=== PATIENT | male | born 1940 | race Caucasian/White ===

== ENCOUNTER → 2017-10-29 | Outpatient (CLI) | payer BC ==
[~2017-10-29] MED LIST: ASPCH81X PO; ATOR-24 PO; ATOR-26 PO; AZAT50TA25 PO; LISI1TAB3 PO; METO50TA16 PO; METO50TA8 PO; MULT-506 PO; NIFE60TA57 PO; OMEG10007 PO; SULF500T35 PO; SULF500T36 PO; VITAMIN B12 PO; VITAMIN D3 PO; [UNRECOGNIZED DRUG - CODE]
== END | disposition home or self-care (01) ==
LOC: C.RDSM 08:00
PROVIDERS: ATTEND Physical Medicine & Rehabilitation Sports Medicine
DX: G56.01 Carpal tunnel syndrome, right upper limb (principal)

== ENCOUNTER → 2017-11-04 | Day surgery (SDC) | payer BC ==
[2017-11-01 09:48] VITALS: Ht 180.3 cm; Wt 84.1 kg
[~2017-11-04] VITALS: Ht 180.3 cm; Wt 84.1 kg
[~2017-11-04] MED LIST changes: -ATOR-24 PO; +ATROPINE SULFATE 0.1 MG/ML 5ML SYR IV PRN; +BUPIVACAINE/EPINEPHRINE 0.5% MPF 1:200,000 30 ML VIAL ONE; +CEFAZOLIN 2000MG IV PUSH 15 ML IV SCH; +EpHEDrine SULFATE 50MG/5ML SYR ONE; +EpHEDrine SULFATE INJ 50 MG/ML AMP IV PRN; +FENTANYL CITRATE INJ 50 MCG/1 ML 2 ML VIAL IV PRN; +FENTANYL CITRATE INJ 50 MCG/1 ML 2 ML VIAL ONE; +HYDROmorphone INJ 1 MG/ML SYR IV PRN; +LACTATED RINGER'S 1000ML 1,000 ML IV SCH; +LIDOCAINE HCL 2% 2 ML VIAL (20MG/ML) ONE; +LIDOCAINE/EPINEPHRINE 1% 20 ML VIAL ONE; -METO50TA8 PO; +MoRPHine SULFATE 2 MG/ML CARP IV PRN; +ONDANSETRON INJ 2 MG/ML 2 ML VIAL IV PRN; +OXYCODONE/ACETAMINOPHEN 5-325 TAB PO PRN; +PROPOFOL IV EMULSION 10 MG/ML 20 ML VIAL IV ONE; +SODIUM CHLORIDE 0.9% 1000ML 1,000 ML IV SCH; -SULF500T35 PO; -[UNRECOGNIZED DRUG - CODE]
--- NOTE | 2017-11-04 06:52 | History & Physical Bridge Note ---
H&P Re-Evaluation Bridge Note: I have examined the patient, reviewed the History & Physical and in the interval since the performance of the History & Physical I have noted the following changes of clinical significance: No changes noted
--- NOTE | 2017-11-04 07:53 | [facility] Post Operative Brief Note ---
Immediate Operative Summary Operative Date Nov 04, 2017. Pre-Operative Diagnosis Right Carpal Tunnel Syndrome Post-Operative Diagnosis Same Procedure(s) Performed Right Carpal Tunnel Release Surgeon Dr. Alberts Final Canoe Inspector Surgeon(s) Bronwyn Guevara MS 3 Estimated Blood Loss 0 mL Findings Consistent with Post-Op Diagnosis Specimens None Drains None Anesthesia Type MAC Regional Complication(s) none Disposition Accompanied Pt To Recovery: no Disposition: Recovery Room / PACU
[2017-11-04 07:57] VITALS: TEMP 36.2
--- NOTE | 2017-11-04 08:03 | [facility] Operative Report ---
Operative Report Operative Date Nov 04, 2017. Pre-Operative Diagnosis Right Carpal Tunnel Syndrome Post-Operative Diagnosis Same Procedure(s) Performed Right Carpal Tunnel Release Surgeon Dr. Alberts Import/Export Freight Forwarder Surgeon(s) Bronwyn Guevara MS 3 Estimated Blood Loss 0 mL Findings Atrophic appearing median nerve with significantly tight distal forearm fascia Specimens None Anesthesia Local with IV sedation Complication(s) None Disposition Recovery Room / PACU Indications The patient is a 77-year-old male with right wrist pain consistent with carpal tunnel syndrome confirmed by electrodiagnostic test. After discussing his treatment options he wished to proceed with surgical intervention. Description of Procedure Informed consent was obtained. The patient was identified as Oswaldo Bernal. The patient identified the operative site as the right wrist which I marked with my initials. A preoperative surgical timeout was performed. A preop dose of IV antibiotics was given. The patient was positioned supine on the hospital stretcher with the right arm suspended on a hand table. 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 The limb was prepped and draped in the usual sterile fashion. The examination under anesthesia was unremarkable. DVT prophylaxis was not indicated. The limb was exsanguinated with the Esmarch as described above.. A midline longitudinal incision was made beginning at Briscoe's cardinal line. The incision stopped just short of the distal transverse wrist crease. Blunt dissection was performed down through the subcutaneous tissues and through the superficial palmar fascia. The transverse carpal ligament was identified and divided in line with the incision up into distal forearm fascia under direct visualization. The distal forearm fascia was notably thickened and I could not insert my finger up into the distal forearm area through the wound. I therefore extended the incision across the risk towards the ulnar side in a zigzag fashion. I then carefully divided longitudinally the palmaris longus tendon. The underlying fascia was identified retractor was placed over top of the nerve to protect it and then this was released achieving a complete release with no areas of compression upon the median nerve. A wide decompression was obtained. The contents of the carpal canal tendons and tenosynovium appeared to be normal. The median nerve appeared to be flattened and atrophic through the carpal canal area the wound was copiously irrigated with sterile saline and then closed with 4-0 nylon horizontal mattress stitches. A soft sterile dressing was applied. The Esmarch was let down after approximately 15 minutes of inflation. The patient was awakened from anesthesia without difficulty and taken to the recovery room in stable condition. There were no specimens or complications. Counts were correct at the end of the case. Blood loss was minimal. At the conclusion of the operation spoke to the patient's family and informed them of my findings. Detailed postoperative instructions were given. The patient will be rehabilitated according to the carpal tunnel protocol. I attest to the content of the Intraoperative Record and any orders documented therein. Any exceptions are noted below.
--- NOTE | 2017-11-04 08:11 | Discharge Instructions-SurgCtr ---
Discharge Instructions Date of Service Nov 04, 2017. Visit Reason for Visit: Right Carpal Tunnel Syndrome Discharge Discharge Diagnosis / Problem: carpal tunnel Discharge Goals Goal(s): Decrease discomfort, Improve function Activity Recommendations Activity Limitations: resume your previous activity Lifting Limitations: no more than 5 pounds Anesthesia . Post Anesthesia Instructions: If you have had General Anesthesia or IV Sedation: * Do not drive today. * Resume driving when surgeon permits. * Do not make important decisions or sign legal documents today. * Call surgeon for: 1. Temperature elevations greater than 101 degrees F. 2. Uncontrollable pain. 3. Excessive bleeding. 4. Persistent nausea and vomiting. 5. Medication intolerance (nausea, vomiting or rash). * For nausea and vomiting use only clear liquids such as: tea, soda, bouillon until nausea subsides, then gradually increase diet as tolerated. * If you have any concerns or questions, call your surgeon's office. If physician is unavailable and it is an emergency, call 911 or go to the nearest emergency room. . Instructions / Follow-Up Instructions / Follow-Up The following are instructions to follow after minor hand surgery. ACTIVITY RECOMMENDATIONS: * Minimize activity until your first visit after surgery. * No excessive walking, jogging, sports or laboring. * Return to activity is individualized. Most patients are able to return to everyday activities within 2 weeks. * Return to sports or intensive labor usually occurs at 1-2 months. * DRIVING: Driving may be resumed when you feel you have adequate pain control and use of the hand. * BATHING: You may shower or sponge-bathe immediately after surgery. The dressing will need to be covered with a plastic bag or plastic wrap until the dressing is changed on the fourth or fifth day after surgery. Once the dressing has been changed on the fourth or fifth day after surgery, you may shower and get the incision wet. * Wash with regular soap and water. * Do not bathe (submerge the incision), soak, swim or use a hot tub until the incision is completely healed over with normal skin and the doctor has given the OK to proceed. * There is no need to apply any ointments, powders or salves to your incision. * Do not apply alcohol or hydrogen peroxide directly to the incision. Diluted peroxide (50:50 mixture with sterile saline) may be used to clean dried blood from around the incision area. WORK/SCHOOL: * You may return to sedentary work or school when you are feeling comfortable. This is usually 3-7 days after surgery. * Expect increased discomfort with increased activity. Continue to elevate and ice the hand as much as possible. DIET: * Resume previous diet. MEDICATIONS: * You will have a prescription for pain medication and an anti-inflammatory medication after surgery. Use the pain pills for severe pain and the anti-inflammatory for less severe pain. * Once the pain pills have run out, try to use the anti-inflammatory. If this is not effective then contact the office for assistance. * The pain medication may cause nausea, constipation and sleepiness. You should see how they affect you before driving or similar activity. * The anti-inflammatory may cause stomach upset and bleeding. If this occurs, let your doctor know immediately . * Some patients may need blood clot prevention. This can be done with either a pill or a simple shot. Your doctor will advise you on when to begin these medications and how to take them. * Do not take aspirin or other anti-inflammatory products (i.e. Advil or Aleve ) if taking blood thinner medication. * Take a stool softener like Colace or a stimulant like Senokot to prevent constipation. SPECIAL CARE INSTRUCTIONS: ICE: * Do not apply ice directly to the skin. * Use a thin dressing or stockinet between the skin and ice bag. The dressing in place after surgery will suffice. * Apply ice for 20-30 minutes and repeat every 2-4 hours. This is especially important for the first 3-7 days after surgery. * Once the pain improves, use ice as needed. ELEVATION: * Keep your hand elevated at or above the level of your heart as much as possible. * Expect some increased discomfort and swelling if you allow your hand to hang down for any length of time. DRESSING: * Your dressing will be changed 4-5 days after surgery by the physical therapist or physician's home health assistant. Leave your dressing intact until this time. * You may then change your dressing daily with clean dry gauze or Band-aids and a soft wrap or stockinet. * Always wash your hands prior to touching the incision area. * Once the stitches are removed, you may leave the wound open to air or cover with a thin bandage. * There is no need to apply any ointments, powders or salves to your incision. * Expect some bloody drainage for the first few days after surgery. * Leave the tape strips in place (if present) for 5-7 days. * The initial dressing after surgery may become soaked with blood or fluid which is normal. You may reinforce your dressing with clean, dry gauze as needed. BRACE: * Bracing is generally not needed after routine hand surgery. THERAPY: * Physical therapy may be prescribed after your surgery. * For carpal tunnel and trigger digit surgery you may begin moving your fingers and wrist immediately after surgery as tolerated. * Be careful to not overuse. * Once the sutures are removed, further range of motion exercises can be performed. * Hand incisions may be very sensitive for a few months after surgery so avoid excessive pressure on the incision. If necessary, use a padded weightlifters' glove. * You may massage the incision with skin cream to make it less sensitive and reduce scarring. * Hand strength usually returns with normal use. * If needed, squeezing a soft sponge or Play-dough may help. * Your doctor will recommend physical therapy if necessary. PROBLEMS/QUESTIONS: * If you have any problems such as severe pain, numbness, tingling or high fevers or if you have any questions, please contact the office at [phone]. * It is not uncommon to have some numbness and tingling after the surgery especially if you have had a nerve block done. This should gradually improve over the first 1- 2 days. If this persists longer or worsens then contact the office. FOLLOW UP VISIT: * If not already scheduled, please call the office at to schedule follow-up appointments for approximately 10 days, 6 weeks and 3 months after surgery. Diet Recommendations Home Diet: no limitations Procedures Procedures Performed: Right Carpal Tunnel Release Pending Studies Studies pending at discharge: no Medical Emergencies . Who to Call and When: Medical Emergencies: If at any time you feel your situation is an emergency, please call 911 immediately. . Non-Emergent Contact Non-Emergency issues call your: Surgeon Call Non-Emergent contact if: you have a fever, your pain is not controlled, your pain is unusual for you, wound has increased drainage, wound has increased redness . . "Provider Documentation" section prepared by Baron Alberts. .
[2017-11-04 08:34] VITALS: BP 147/71; PULSE 50; O2SAT 95
--- NOTE | 2017-11-04 08:38 | Anesthesia Progress Nt - [facility] ---
Anesthesia Post Op Note Date & Time Nov 04, 2017 at 08:38 Vital Signs Pain Intensity: 0 Vital Signs Past 12 Hours Date Time Temp Pulse Resp B/P (MAP) Pulse Ox O2 Delivery O2 Flow Rate FiO2 11/04/17 08:34 50 18 147/71 (96) 95 Room Air 11/04/17 07:57 36.2 53 16 126/70 (88) 95 Room Air 11/04/17 06:26 36.3 58 18 137/76 (96) 95 Room Air Notes Mental Status: alert / awake / arousable, participated in evaluation Pt Amnestic to Procedure: Yes Nausea / Vomiting: adequately controlled Pain: adequately controlled Airway Patency, RR, SpO2: stable & adequate BP & HR: stable & adequate Hydration State: stable & adequate Anesthetic Complications: no major complications apparent
== END | disposition home or self-care (01) ==
LOC: X.SURG 06:10
PROVIDERS: ATTEND Physical Medicine & Rehabilitation Sports Medicine
DX: G56.01 Carpal tunnel syndrome, right upper limb (principal); I25.10 Atherosclerotic heart disease of native coronary artery without angina pectoris; I10 Essential (primary) hypertension; E78.5 Hyperlipidemia, unspecified; M19.90 Unspecified osteoarthritis, unspecified site; M48.061 Spinal stenosis, lumbar region without neurogenic claudication; K50.90 Crohn's disease, unspecified, without complications; I70.90 Unspecified atherosclerosis; Z95.1 Presence of aortocoronary bypass graft; Z79.82 Long term (current) use of aspirin; Z87.891 Personal history of nicotine dependence

== ENCOUNTER 2021-09-30 11:24 | Observation (INO) ==
[2021-09-30] MEDS ORDERED: SODIUM CHLORIDE 0.9% 500 ML IV ONE (11:45)
--- NOTE | 2021-09-30 11:48 | Emergency Department Note ---
Impression & Plan Appendicitis, Hyponatremia, Abdominal pain ED Provider Note NAME: OSWALDO BLAKELY AGE: 81 SEX: M : 1940 ARRIVES VIA: Walk-In INFORMANT: Patient ED PROVIDER(S): Sixto Salazar DO CHIEF COMPLAINT: abdominal pain HPI: Patient is an 81-year-old male that presents to the ER for right lower quadrant abdominal pain. This woke him up from sleep at 8 AM. He describes as sharp stabbing. No vomiting. He did have 3 loose bowel movements. Pain has improved since this morning. He saw his PCP and referred him in for further evaluation. Denies any headache or change in vision. No chest pain or shortness of breath. No dysuria, urgency, or frequency. Previous abdominal surgeries include 3 previous hernia repairs. He still has gallbladder and appendix. Normal loose stools today. Does have a history of Crohn's. He notes this is well controlled. ROS: See above HPI for pertinent positives & negatives. A total of 10 systems r eviewed and were otherwise negative. PAST MEDICAL HISTORY:See Below PAST SURGICAL HISTORY:See Below FAMILY HISTORY:See Below SOCIAL HISTORY:See Below HOME MEDICATIONS:See Below ALLERGIES:See Below VITALS:See Below PHYSICAL EXAMINATION: GENERAL: Sitting up in bed, alert, well appearing, well nourished, no distress, non-toxic EYE EXAM: normal conjunctiva. PERRL and EOM's grossly intact. OROPHARYNX: no exudate, no erythema, lips, buccal mucosa, and tongue normal and mucous membranes are moist NECK: supple, no nuchal rigidity, no adenopathy, non-tender LUNGS: Clear to auscultation. Normal chest wall mechanics HEART: no murmurs, S1 normal and S2 normal ABDOMEN: abdomen soft, TTP in RLQ, normo-active bowel sounds, no masses, no rebound or guarding. UPPER EXTREMITIES: upper extremities are grossly normal. LOWER EXTREMITIES: No pitting edema. NEURO EXAM: Normal sensorium, cranial nerves II-XII grossly intact, normal speech, no gross weakness of arms, no gross weakness of legs. MEDICAL DECISION MAKING: Patient is an 81-year-old male who presents ER for right lower quadrant abdominal pain. IV was established blood was obtained. Labs show mild leukocytosis 11.5 thousand. No significant anemia. BMP with mild hyponatremia at 130. LFTs bilirubin was unremarkable. Lipase was normal. UA was clean. COVID was negative. CT abdomen pelvis shows acute appendicitis without perforation. Patient was given IV cefoxitin and fluids. Declined pain medications. Discussed with Kindra Bender who evaluated the patient from general surgery and admitted under him to her service. Triage Nursing notes reviewed. Limited review of prior medical records performed Vital Signs: reviewed and remarkable for HTN Differential diagnosis: Differential diagnoses includes but is not limited to gastritis, peptic ulcer disease, GERD, gallbladder disease, pancreatitis, small bowel obstruction, acute coronary syndrome, pericarditis, ischemic bowel, irritable bowel disease, irritable bowel syndrome, appendicitis, diverticulitis, malignancy, hernia, urinary tract infection, torsion, perforation, trauma, infectious. ER treatment provided: See below Diagnostics interpreted by me: ECG: none Cardiac Monitoring: An order was placed for continuous cardiac monitoring. The monitor shows a rate of 70 with sinus rhythm. Laboratory studies: As stated above and show below. 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 GAMBINO History of tonsillectomy Hx of hernia repair X3 Family History Father Colon cancer Social History Smoking Status: Former smoker Tobacco Type: Cigarettes Second Hand Exposure: No; Hx Alcohol Use: Yes Alcohol type: beer and wine Hx Substance Use: No Preferred Language: Malay Communication Ability: Effective Baker Test Required: No Beliefs That Will Affect Care: None Current Living Situation: Spouse Feels Safe at Home: Yes Assistive Devices: None Allergies Allergies Allergy/AdvReac Type Severity Reaction Status Date / Time No Known Allergies Allergy Unknown Verified 09/30/21 13:59 Home Meds Home Medications Medication Instructions Recorded Confirmed aspirin 81 mg tablet,delayed 81 mg PO QAM 06/27/19 09/30/21 release clonidine HCl 0.1 mg tablet 0.1 mg PO 1700 tab 06/27/19 09/30/21 lisinopril 40 mg tablet 40 mg PO QAM 06/27/19 09/30/21 multivitamin 1 tab PO QAM 06/27/19 09/30/21 spironolactone 25 mg tablet 25 mg PO 1700 06/27/19 09/30/21 (Aldactone) cilostazol 100 mg tablet 100 mg PO BID 09/08/19 09/30/21 metoprolol tartrate 50 mg tablet 50 mg PO BID tab 09/08/19 09/30/21 (Lopressor) cholecalciferol (vitamin D3) 50 2,000 unit PO QAM 10/20/19 09/30/21 mcg (2,000 unit) tablet (Vitamin D3) timolol maleate 0.5 % eye drops 1 drp OPL QAM 10/20/19 09/30/21 nifedipine 60 mg tablet,extended 60 mg PO DAILY 03/13/20 09/30/21 release dorzolamide 2 % eye drops 1 drp OPL BID ml 11/18/20 09/30/21 cholestyramine-aspartame 4 gram 1 ea PO DAILY PRN 09/30/21 09/30/21 oral powder (Cholestyramine Light) latanoprost 0.005 % eye drops 1 drp OPL HS 09/30/21 09/30/21 rosuvastatin 10 mg tablet 10 mg PO DAILY 09/30/21 09/30/21 Previous Rx's Medication Instructions Recorded sulfasalazine 500 mg tablet 1.5 g PO BID #540 tab 06/16/21 folic acid 1 mg tablet 1 mg PO DAILY #90 tab 08/11/21 Results & Data (ED) Vital Signs Vital Signs - 24 hr 09/30/21 11:28 09/30/21 12:20 09/30/21 12:53 Temperature 36.4 C L Temperature Source Temporal Artery Scan Pulse Rate 72 62 66 Pulse Rate [Finger] Pulse Rate from SpO2 Sensor 61 67 Respiratory Rate 16 17 18 Respiratory Effort / Characteristics Respiratory Depth Respiratory Pattern Blood Pressure 157/66 H Blood Pressure [Right Arm] Blood Pressure Mean 96 Blood Pressure Mean [Right Arm] Blood Pressure Position [Right Arm] Pulse Oximetry 96 95 96 Oxygen Delivery Method Room Air Sepsis Recent Fever Within 48 Hours No Sepsis New/Unexplained Change in Mental Status No Sepsis Action Taken by Nursing No Action Required 09/30/21 13:01 09/30/21 13:04 09/30/21 13:30 Temperature Temperature Source Pulse Rate 72 66 Pulse Rate [Finger] Pulse Rate from SpO2 Sensor Respiratory Rate 19 23 Respiratory Effort / Characteristics Respiratory Depth Respiratory Pattern Blood Pressure 174/86 H Blood Pressure [Right Arm] Blood Pressure Mean 149 115 Blood Pressure Mean [Right Arm] Blood Pressure Position [Right Arm] Pulse Oximetry Oxygen Delivery Method Sepsis Recent Fever Within 48 Hours Sepsis New/Unexplained Change in Mental Status Sepsis Action Taken by Nursing 09/30/21 14:20 09/30/21 14:40 Temperature 36.5 C Temperature Source Oral Pulse Rate Pulse Rate [Finger] 68 Pulse Rate from SpO2 Sensor Respiratory Rate 18 Respiratory Effort / Characteristics Non-Labored Spontaneous Respiratory Depth Normal Respiratory Pattern Regular Blood Pressure Blood Pressure [Right Arm] 166/75 H Blood Pressure Mean Blood Pressure Mean [Right Arm] 105 Blood Pressure Position [Right Arm] Sitting Pulse Oximetry 98 Oxygen Delivery Method Room Air Room Air Sepsis Recent Fever Within 48 Hours Sepsis New/Unexplained Change in Mental Status Sepsis Action Taken by Nursing Laboratory Data Result diagrams: 09/30/21 11:52 09/30/21 11:52 Lab Results 09/30/21 09/30/21 09/30/21 Range/Units 11:52 11:52 11:52 WBC 11.25 H (4.8-10.8) K/uL RBC 3.82 L (4.7-6.1) M/uL Hgb 12.7 L (14.0-18.0) g/dL POC Hgb (14.0-18.0) g/dl Hct 38.9 L (42-52) % POC Hct (42-52) % MCV 101.8 H (80-100) fL MCH 33.2 (25-34) pg MCHC 32.6 (32-36) g/dL RDW Std Deviation 50.1 H (36.4-46.3) fL RDW Coeff of Sina 13.4 (11.5-14.5) % Plt Count 229 (130-400) K/uL MPV 11.2 H (7.4-10.4) fL Immature Gran % (Auto) 0.3 % Neut % (Auto) 71.0 % Lymph % (Auto) 14.0 % Mer[place] % (Auto) 13.2 % Eos % (Auto) 1.2 % Baso % (Auto) 0.3 % Neut # (Auto) 7.99 H (1.4-6.5) K/uL Lymph # (Auto) 1.58 (1.2-3.4) K/uL [place] # (Auto) 1.49 H (0.11-0.59) K/uL Eos # (Auto) 0.13 (0-0.5) K/uL Baso # (Auto) 0.03 (0-0.2) K/uL Immature Gran # (Auto) 0.03 H (0.00-0.02) K/uL POC Sodium (135-144) mmol/L Sodium 130 L (136-145) mmol/L POC Potassium (3.3-5.0) mmol/L Potassium 4.5 (3.5-5.1) mmol/L POC Chloride (101-112) mmol/L Chloride 99 (98-107) mmol/L Carbon Dioxide 23 (21-32) mmol/L POC Total CO2 (24-31) mmol/L Anion Gap 8 (3-11) POC Anion Gap (16-25) mmol/L POC BUN (7-18) mg/dl BUN 15 (6-23) mg/dl Creatinine 0.86 (0.6-1.4) mg/dl POC Creatinine (0.6-1.3) mg/dl Est Cr Clr Drug Dosing 70.7 ml/min Est GFR ( Amer) 94.3 ml/min Est GFR (Non-Af Amer) 81.3 ml/min BUN/Creatinine Ratio 17.4 (10-20) Glucose 104 H (70-99(Fasting)) mg/dl POC Glucose (other) (70-99) mg/dl Calcium 9.8 (8.5-10.1) mg/dl POC Ioniz Calcium Taye (1.12-1.32) mmol/l Total Bilirubin 0.6 (0.2-1.0) mg/dl AST 22 (13-39) U/L ALT 15 (7-52) U/L Alkaline Phosphatase 70 (34-104) U/L Total Protein 7.4 (6.0-8.3) gm/dl Albumin 4.6 (3.4-5.0) gm/dl Globulin 2.8 (2.5-4.0) gm/dl Albumin/Globulin Ratio 1.6 (0.9-2) Lipase 42 (11-82) U/L Urine Color Yellow Urine Appearance Clear (Clear) Urine pH 5.0 (4.5-7.5) Ur Specific Bernice 1.011 (1.000-1.030) Urine Protein Negative (Negative) Urine Glucose (UA) Negative (Negative) Urine Ketones Negative (Negative) Urine Blood Negative (Negative) Urine Nitrite Negative (Negative) Urine Bilirubin Negative (Negative) Urine Urobilinogen Negative (Negative) Ur Leukocyte Esterase Negative (Negative) SARS-CoV-2, RNA, NAAT (NEGATIVE) 09/30/21 09/30/21 Range/Units 11:58 Unknown WBC (4.8-10.8) K/uL RBC (4.7-6.1) M/uL Hgb (14.0-18.0) g/dL POC Hgb 14.3 (14.0-18.0) g/dl Hct (42-52) % POC Hct 42 (42-52) % MCV (80-100) fL MCH (25-34) pg MCHC (32-36) g/dL RDW Std Deviation (36.4-46.3) fL RDW Coeff of Sina (11.5-14.5) % Plt Count (130-400) K/uL MPV (7.4-10.4) fL Immature Gran % (Auto) % Neut % (Auto) % Lymph % (Auto) % [place] % (Auto) % Eos % (Auto) % Baso % (Auto) % Neut # (Auto) (1.4-6.5) K/uL Lymph # (Auto) (1.2-3.4) K/uL [place] # (Auto) (0.11-0.59) K/uL Eos # (Auto) (0-0.5) K/uL Baso # (Auto) (0-0.2) K/uL Immature Gran # (Auto) (0.00-0.02) K/uL POC Sodium 132 L (135-144) mmol/L Sodium (136-145) mmol/L POC Potassium 4.5 (3.3-5.0) mmol/L Potassium (3.5-5.1) mmol/L POC Chloride 99 L (101-112) mmol/L Chloride (98-107) mmol/L Carbon Dioxide (21-32) mmol/L POC Total CO2 22 L (24-31) mmol/L Anion Gap (3-11) POC Anion Gap 16.0 (16-25) mmol/L POC BUN 15 (7-18) mg/dl BUN (6-23) mg/dl Creatinine (0.6-1.4) mg/dl POC Creatinine 0.9 (0.6-1.3) mg/dl Est Cr Clr Drug Dosing ml/min Est GFR ( Amer) ml/min Est GFR (Non-Af Amer) ml/min BUN/Creatinine Ratio (10-20) Glucose (70-99(Fasting)) mg/dl POC Glucose (other) 106 H (70-99) mg/dl Calcium (8.5-10.1) mg/dl POC Ioniz Calcium Taye 1.28 (1.12-1.32) mmol/l Total Bilirubin (0.2-1.0) mg/dl AST (13-39) U/L ALT (7-52) U/L Alkaline Phosphatase (34-104) U/L Total Protein (6.0-8.3) gm/dl Albumin (3.4-5.0) gm/dl Globulin (2.5-4.0) gm/dl Albumin/Globulin Ratio (0.9-2) Lipase (11-82) U/L Urine Color Urine Appearance (Clear) Urine pH (4.5-7.5) Ur Specific Bernice (1.000-1.030) Urine Protein (Negative) Urine Glucose (UA) (Negative) Urine Ketones (Negative) Urine Blood (Negative) Urine Nitrite (Negative) Urine Bilirubin (Negative) Urine Urobilinogen (Negative) Ur Leukocyte Esterase (Negative) SARS-CoV-2, RNA, NAAT NEGATIVE (NEGATIVE) Administered Medications Discontinued Medications Bupivacaine HCl (Bupivacaine 0.5 % 5 Mg/1 Ml Mpf 30ml Vial) Confirm Administered Dose 30 ml .ROUTE .[employer]-MED ONE Stop: 09/30/21 14:07 Last Admin: 09/30/21 15:44 Dose: 30 ml Documented by: [id number] Sodium Chloride (Nss) 500 mls @ 999 mls/hr IV .Q31M ONE Stop: 09/30/21 12:15 Last Admin: 09/30/21 12:11 Dose: 999 mls/hr Documented by: [id number] Sodium Chloride (Nss 1000ml) 500 mls @ 999 mls/hr IV .Q31M ONE Stop: 09/30/21 13:49 Last Admin: 09/30/21 13:34 Dose: 999 mls/hr Documented by: [id number] Cefoxitin Sodium (Mefoxin) 2,000 mg in 60 mls @ 100 mls/hr IV NOW STA Stop: 09/30/21 13:54 Last Admin: 09/30/21 13:34 Dose: 100 mls/hr Documented by: [id number] Ioversol (Optiray 320 100ml) 94 ml IV ONCE ONE Stop: 09/30/21 12:35 Last Admin: 09/30/21 12:34 Dose: 94 ml Documented by: [id number] Imaging Data Radiologist's Impression: Abdomen/Pelvis CT 09/30/21 11:45 CT abd pelvis IV con only CLINICAL HISTORY: rlq abd pain TECHNIQUE: Helical axial images of the abdomen and pelvis were obtained and displayed. Automated dose lowering techniques and/or adjustment according to patient size were utilized for this exam. This exam was performed with intravenous contrast. COMPARISON: None available at the time of this dictation. FINDINGS: Lower chest: No acute abnormality Liver: Unremarkable. No focal lesions are seen. Gallbladder and biliary tree: No calcified gallstones. Normal caliber wall. No intra- or extrahepatic biliary ductal dilation. Pancreas: Unremarkable, no focal lesions. Spleen: Splenule is incidentally noted. Adrenals: Unremarkable. Kidneys and ureters: Exophytic cyst is seen in the right kidney. Bladder: Bladder wall thickening is seen. Reproductive organs: Prostatomegaly is seen. Bowel: There is dilation of the appendix to approximately 9 mm with associated fat stranding. No abscess or perforation is seen. Lymph nodes Retroperitoneal: Unremarkable. Mesenteric: Unremarkable. Pelvic: Unremarkable. Peritoneum: Normal. Vessels: Atherosclerotic calcifications are seen. Abdominal wall: A fat-containing umbilical hernia is seen. A fat-containing left inguinal hernia is seen. Bones: Degenerative changes in the visualized spine. IMPRESSION: 1. Findings are compatible with acute appendicitis. No evidence of perforation or abscess. 2. There is thickening of the bladder wall likely secondary to chronic obstruction this patient with prostatomegaly. 3. Additional findings as above. ACT 112: Negative or not required by law. Electronically signed by: Conor Persaud M.D. 09/30/2021 1:04 PM Discharge Plan Visit Data Chief Complaint: Abdominal Pain Stated Complaint: DR. FAY CALLED, TO CHECK FOR APPENDICITIS ED Provider: Sixto Salazar Discharge Problem: Appendicitis, Hyponatremia, Abdominal pain Patient Disposition: Admitted As Inpatient Discharge Instructions Interventions: ED Discharge Assessment Last Done: 09/30/21 14:20
[2021-09-30 12:11] LABS: Basophils # (auto) 0.03 K/uL (0-0.2); Basophils % (auto) 0.3 %; Eosinophils # (auto) 0.13 K/uL (0-0.5); Eosinophils % (auto) 1.2 %; Hematocrit (blood only) 38.9 % (42-52); Hemoglobin 12.7 g/dL (14.0-18.0); Immature Granulocytes # (auto) 0.03 K/uL (0.00-0.02); Immature Granulocytes % (auto) 0.3 %; Lymphocytes # (auto) 1.58 K/uL (1.2-3.4); Mean Corpuscular Hemoglobin 33.2 pg (25-34); Mean Corpuscular Hgb Conc 32.6 g/dL (32-36); Mean Corpuscular Volume 101.8 fL (80-100); Mean Platelet Volume 11.2 fL (7.4-10.4); Monocytes # (auto) 1.49 K/uL (0.11-0.59); Monocytes % (auto) 13.2 %; Neutrophils # (auto) 7.99 K/uL (1.4-6.5); Platelet Count 229 K/uL (130-400); RDW Coefficient of Variation 13.4 % (11.5-14.5); RDW Standard Deviation 50.1 fL (36.4-46.3); Red Blood Count 3.82 M/uL (4.7-6.1); White Blood Count 11.25 K/uL (4.8-10.8)
[2021-09-30 12:11] LABS: iSTAT Creatinine 0.9 mg/dl (0.6-1.3); iSTAT Hemoglobin 14.3 g/dl (14.0-18.0); iSTAT Ionized Calcium 1.28 mmol/l (1.12-1.32); iSTAT Potassium 4.5 mmol/L (3.3-5.0)
[2021-09-30 12:21] LABS: Appearance Urine Clear (Clear); Bilirubin Urine Negative (Negative); Blood Urine Negative (Negative); Color Urine Yellow; Glucose Urine UA Negative (Negative); Ketones Urine Negative (Negative); Leukocyte Esterase Urine Negative (Negative); Nitrite Urine Negative (Negative); Protein Urine Negative (Negative); Specific Gravity Urine 1.011 (1.000-1.030); Urobilinogen Urine Negative (Negative)
[2021-09-30 12:34] LABS: Albumin Globulin Ratio 1.6 (0.9-2); Albumin Level 4.6 gm/dl (3.4-5.0); BUN Creatinine Ratio 17.4 (10-20); Bilirubin,Total 0.6 mg/dl (0.2-1.0); Calcium 9.8 mg/dl (8.5-10.1); Creatinine Clr Calc Pharmacy 70.7 ml/min; Est GFR (African American) 94.3 ml/min; Est GFR (Non-African American) 81.3 ml/min; Globulin 2.8 gm/dl (2.5-4.0); Potassium 4.5 mmol/L (3.5-5.1); Total Protein 7.4 gm/dl (6.0-8.3)
[2021-09-30] MEDS ORDERED: OPTIRAY 320 100ml IV ONE (12:34)
--- NOTE | 2021-09-30 13:05 | CT Scan Report ---
CT abd pelvis IV con only CLINICAL HISTORY: rlq abd pain TECHNIQUE: Helical axial images of the abdomen and pelvis were obtained and displayed. Automated dose lowering techniques and/or adjustment according to patient size were utilized for this exam. This e xam was performed with intravenous contrast. COMPARISON: None available at the time of this dictation. FINDINGS: Lower chest: No acute abnormality Liver: Unremarkable. No focal lesions are seen. Gallbladder and biliary tree: No calcified gallstones. Normal caliber wall. No intra- or extrahepatic biliary ductal dilation. Pancreas: Unremarkable, no focal lesions. Spleen: Splenule is incidentally noted. Adrenals: Unremarkable. Kidneys and ureters: Exophytic cyst is seen in the right kidney. Bladder: Bladder wall thickening is seen. Reproductive organs: Prostatomegaly is seen. Bowel: There is dilation of the appendix to approximately 9 mm with associated fat stranding. No absc ess or perforation is seen. Lymph nodes Retroperitoneal: Unremarkable. Mesenteric: Unremarkable. Pelvic: Unremarkable. Peritoneum: Normal. Vessels: Atherosclerotic calcifications are seen. Abdominal wall: A fat-containing umbilical hernia is seen. A fat-containing left inguinal hernia is s een. Bones: Degenerative changes in the visualized spine. IMPRESSION: 1. Findings are compatible with acute appendicitis. No evidence of perforation or abscess. 2. There is thickening of the bladder wall likely secondary to chronic obstruction this patient with prostatomegaly. 3. Additional findings as above. ACT 112: Negative or not required by law. Electronically signed by: Conor Persaud M.D. 09/30/2021 1:04 PM
[2021-09-30] MEDS ORDERED: cefOXitin 2,000 MG/60 ML BAG IV STA (13:19)
[2021-09-30] MEDS ORDERED: SODIUM CHLORIDE 0.9% 1000ML 500 ML IV ONE (13:19)
--- NOTE | 2021-09-30 13:36 | History & Physical Report ---
Date of Service September 30, 2021 Assessment & Plan (1) Appendicitis: Plan: Will plan for laparoscopic appendectomy this afternoon. COVID test is pending. He had a sip of water with meds this AM around 7:00. History of Present Illness Primary Care Provider: Vijay Cash MD 81 y/o male woke up at 5 AM with pain in RLQ. Had loose BMs. Pain persisted and came to the ED. Had colonoscopy about 2 years ago and has these routinely for polyps. Has 25-30 year h/o Crohn's but well managed with sulfasalazine. Allergies Allergy/AdvReac Type Severity Reaction Status Date / Time No Known Allergies Allergy Unknown Verified 09/30/21 13:59 Home Medications Medication Instructions Recorded Confirmed Type aspirin 81 mg tablet,delayed 81 mg PO QAM 06/27/19 09/30/21 History release clonidine HCl 0.1 mg tablet 0.1 mg PO 1700 tab 06/27/19 09/30/21 History lisinopril 40 mg tablet 40 mg PO QAM 06/27/19 09/30/21 History multivitamin 1 tab PO QAM 06/27/19 09/30/21 History spironolactone 25 mg tablet 25 mg PO 1700 06/27/19 09/30/21 History (Aldactone) cilostazol 100 mg tablet 100 mg PO BID 09/08/19 09/30/21 History metoprolol tartrate 50 mg tablet 50 mg PO BID tab 09/08/19 09/30/21 History (Lopressor) cholecalciferol (vitamin D3) 50 2,000 unit PO QAM 10/20/19 09/30/21 History mcg (2,000 unit) tablet (Vitamin D3) timolol maleate 0.5 % eye drops 1 drp OPL QAM 10/20/19 09/30/21 History nifedipine 60 mg tablet,extended 60 mg PO DAILY 03/13/20 09/30/21 History release dorzolamide 2 % eye drops 1 drp OPL BID ml 11/18/20 09/30/21 History sulfasalazine 500 mg tablet 1.5 g PO BID #540 tab 06/16/21 09/30/21 Rx folic acid 1 mg tablet 1 mg PO DAILY #90 tab 08/11/21 09/30/21 Rx cholestyramine-aspartame 4 gram 1 ea PO DAILY PRN 09/30/21 09/30/21 History oral powder (Cholestyramine Light) latanoprost 0.005 % eye drops 1 drp OPL HS 09/30/21 09/30/21 History rosuvastatin 10 mg tablet 10 mg PO DAILY 09/30/21 09/30/21 History Past Med/Surg History Medical History (Updated 09/30/21 @ 13:52 by Oswaldo Lyons Jr, PA-C) Atrial fibrillation DX: MANY YRS AGO >METOPROLOL > NO CARDIOVERSIONS Crohns disease Glaucoma Hyperlipidemia Hypertension Kidney stones PASSED ON OWN Osteoarthritis Spinal stenosis Surgical History History of back surgery L3-L4 History of cardiac cath 2005 > NO STENTS > [facility] TO [facility] History of colonoscopy 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 GAMBINO History of tonsillectomy Hx of hernia repair X3 Family History Father Colon cancer Social History Smoking Status: Former smoker Tobacco Type: Cigarettes Second Hand Exposure: No; Hx Alcohol Use: Yes Alcohol type: beer and wine Hx Substance Use: No Preferred Language: Guamanian Communication Ability: Effective Master Cosmetologist Required: No Beliefs That Will Affect Care: None Current Living Situation: Spouse Feels Safe at Home: Yes Assistive Devices: None Review of Systems Constitutional: no fever, no chills and no anorexia Respiratory: no cough and no dyspnea Cardiovascular: no chest pain and no palpitations Gastrointestinal: + diarrhea/loose stools; no nausea and no vomiting Physical Exam Constitutional: WD/WN, vitals as above Respiratory: normal respiratory effort, lungs clear to auscultation Cardiovascular: RRR, no murmur, no edema Gastrointestinal (Abdomen): Inspection/Auscultation: abdomen normal to inspection; abdomen not distended Percussion/Palpation: + abdomen tender (RLQ), + guarding and abdomen soft Skin: no rashes, warm and dry Results & Data Results & Data ([facility]) Vital Signs (Past 12 Hours) Vital Signs Temp Pulse Resp BP Pulse Ox 09/30/21 11:28 36.4 C L 72 16 157/66 H 96 Supervising Physician Co-Signing Physician Notes Patient seen and examined, labs and imaging reviewed, agree with above. [age]-year-old male with history of Crohn's disease well-controlled on current medication regimen and history of CABG with no chest pain with activity presents with right lower quadrant abdominal pain. On exam he is afebrile with stable vitals. Tender to palpation in the right lower quadrant. WBC mildly elevated, CT personally reviewed and shows dilated appendix up to 9 cm of periappendiceal fat stranding. No evidence of terminal ileitis to suggest Crohn's flare. Discussed his options, patient elects for surgery. Plan for laparoscopic appendectomy. The risk the procedure were discussed to include but not limited to bleeding, infection, conversion open, damage surrounding structures, normal appendix, need for future more extensive surgeries, and the risk of anesthesia PG Care Time/CCT Total # of Minutes Spent Total Time Spent with Patient: Total time spent is greater than 50% in coordination of care (as documented) at patient's floor/unit and/or counseling patient: Coding Level of Care Code 04466 Initial Inpt Care Lvl 1 Diagnoses Appendicitis K37
[2021-09-30] MEDS ORDERED: BUPIVACAINE 0.5 % 5 MG/1 ML MPF 30ML VIAL ONE (14:06)
[2021-09-30] MEDS ORDERED: fentaNYL citrate 100 MCG/2 ML VIAL ONE (14:18)
--- NOTE | 2021-09-30 14:50 | Anesthesiology Consultation ---
Date of Service September 30, 2021 Assessment & Plan Chart Review Chart Review: Acceptable Risk for Surgery Consults Requested none History Surgery Operation Date: 09/30/21 07:50 Proposed Procedures p Laparoscopic Appendectomy - Garrick Siegel DO, FACS Height/Weight Height: 5 ft 10.5 in Weight: 84.3 kg Allergies Allergy/AdvReac Type Severity Reaction Status Date / Time No Known Allergies Allergy Unknown Verified 09/30/21 13:59 Medications Home Medications Medication Instructions Recorded Confirmed Last Taken aspirin 81 mg tablet,delayed 81 mg PO QAM 06/27/19 09/30/21 09/30/21 release clonidine HCl 0.1 mg tablet 0.1 mg PO 1700 tab 06/27/19 09/30/21 09/29/21 lisinopril 40 mg tablet 40 mg PO QAM 06/27/19 09/30/21 09/30/21 multivitamin 1 tab PO QAM 06/27/19 09/30/21 09/30/21 spironolactone 25 mg tablet 25 mg PO 1700 06/27/19 09/30/21 09/29/21 (Aldactone) cilostazol 100 mg tablet 100 mg PO BID 09/08/19 09/30/21 09/30/21 metoprolol tartrate 50 mg tablet 50 mg PO BID tab 09/08/19 09/30/21 09/30/21 (Lopressor) cholecalciferol (vitamin D3) 50 2,000 unit PO QAM 10/20/19 09/30/21 09/30/21 mcg (2,000 unit) tablet (Vitamin D3) timolol maleate 0.5 % eye drops 1 drp OPL QAM 10/20/19 09/30/21 09/30/21 nifedipine 60 mg tablet,extended 60 mg PO DAILY 03/13/20 09/30/21 09/30/21 release dorzolamide 2 % eye drops 1 drp OPL BID ml 11/18/20 09/30/21 09/30/21 sulfasalazine 500 mg tablet 1.5 g PO BID #540 tab 06/16/21 09/30/21 09/30/21 folic acid 1 mg tablet 1 mg PO DAILY #90 tab 08/11/21 09/30/21 09/30/21 cholestyramine-aspartame 4 gram 1 ea PO DAILY PRN 09/30/21 09/30/21 09/29/21 oral powder (Cholestyramine Light) latanoprost 0.005 % eye drops 1 drp OPL HS 09/30/21 09/30/21 09/29/21 rosuvastatin 10 mg tablet 10 mg PO DAILY 09/30/21 09/30/21 09/29/21 Past Medical History Medical History (Updated 09/30/21 @ 13:52 by Oswaldo Lyons Jr, PA-C) Atrial fibrillation DX: MANY YRS AGO >METOPROLOL > NO CARDIOVERSIONS Crohns disease Glaucoma Hyperlipidemia Hypertension Kidney stones PASSED ON OWN Osteoarthritis Spinal stenosis Past Family History Family History Father Colon cancer Past Surgical History Surgical History History of back surgery L3-L4 History of cardiac cath 2005 > NO STENTS > PRIOR TO [place] History of colonoscopy 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 GAMBINO History of tonsillectomy Hx of hernia repair X3 Social History Smoking Status: Former smoker Hx Alcohol Use: Yes Alcohol type: beer and wine alcohol intake frequency: 0-2 drinks per day Hx Substance Use: No substance use type: does not use Physical Exam Vital Signs Last Vital Signs Temp 36.4 C L 09/30/21 11:28 Pulse 66 09/30/21 13:30 Resp 23 09/30/21 13:30 BP 174/86 H 09/30/21 13:30 Pulse Ox 96 09/30/21 12:53 Testing Laboratory Results 09/30/21 11:52 09/30/21 11:52 Urine Color Yellow 09/30/21 11:52 Urine Appearance Clear (Clear) 09/30/21 11:52 Urine pH 5.0 (4.5-7.5) 09/30/21 11:52 Ur Specific [place] 1.011 (1.000-1.030) 09/30/21 11:52 Urine Protein Negative (Negative) 09/30/21 11:52 Urine Glucose (UA) Negative (Negative) 09/30/21 11:52 Urine Ketones Negative (Negative) 09/30/21 11:52 Urine Nitrite Negative (Negative) 09/30/21 11:52 Ur Leukocyte Esterase Negative (Negative) 09/30/21 11:52 09/30/21 11:58 POC Glucose (other) 106 H
[2021-09-30] MEDS ORDERED: ePHEDrine sulfate 50 MG/ML AMP IV PRN (14:56)
[2021-09-30] MEDS ORDERED: HYDROmorphone INJ 2 MG/ML SYR/VIAL IV PRN (14:56)
[2021-09-30] MEDS ORDERED: ATROPINE SULFATE 0.1 MG/ML 10ML SYR IV PRN (14:56)
[2021-09-30] MEDS ORDERED: PROMETHAZINE HCL 12.5 MG in SODIUM CHLORIDE 0.9% 50 ML IV PRN (14:56)
[2021-09-30] MEDS ORDERED: ONDANSETRON INJ 2 MG/ML 2 ML VIAL IV PRN ×2 (14:56→17:15)
[2021-09-30] MEDS ORDERED: ROCURONIUM BROMIDE 10 MG/ML 5 ML VIAL IV ONE (15:30)
[2021-09-30] MEDS ORDERED: LIDOCAINE 2% 2 ML VIAL/AMP(20MG/ML) INFIL ONE (15:30)
[2021-09-30] MEDS ORDERED: PROPOFOL IV EMULSION 10 MG/ML 20 ML VIAL IV ONE (15:30)
[2021-09-30] MEDS ORDERED: GLYCOPYRROLATE 0.2 MG/ML VIAL ONE (15:30)
[2021-09-30] MEDS ORDERED: NEOSTIGMINE METHYLSULFATE 1 MG/ML 10ML VIAL ONE (15:30)
[2021-09-30] MEDS ORDERED: DEXAMETHASONE SOD INJ 4 MG/ML VIAL ONE (15:30)
[2021-09-30] MEDS ORDERED: ONDANSETRON INJ 2 MG/ML 2 ML VIAL ONE (15:30)
--- NOTE | 2021-09-30 15:52 | Operative Report ---
PG Post Operative Report Pre & Post Diagnosis Operation Date: 09/30/21 07:50 Pre-Op Diagnosis: Acute Appendicitis Post-Op Diagnosis: Acute Appendicitis I identified the patient and participated in the time-out.: Yes Procedure Operation Date: 09/30/21 07:50 Actual Procedures p Laparoscopic Appendectomy(Not Applicable) - Garrick Siegel DO, CLEOPATRA Surgeon Garrick Siegel DO, FACS Architectural Modeler Oswaldo Lyons Estimated Blood Loss 5 Findings Consistent with Post-Op Diagnosis Acute, nonperforated suppurative appendicitis Specimens Appendix Anesthesia Type General Complications none Disposition Accompanied Patient To Recovery: No Disposition: Recovery Room Indications 81-year-old male presented to the emergency department with right lower quadrant pain, physical exam and CT scan consistent with acute appendicitis. Plan for laparoscopic appendectomy. The risks of the procedure were discussed, all questions were answered, and the patient agreed to proceed with surgery as plann ed. Description of Procedure The patient was properly identified, consented, and taken to the operating room where he was placed in the supine position. General endotracheal anesthesia was induced. SCDs and a safety belt were placed. Preoperative antibiotics were administered. A Dominguez catheter was not placed as the patient voided prior to surgery The patient's abdomen was prepped and draped in the standard sterile fashion. Surgical timeout was performed and all parties were in agreement that this was the correct patient and procedure to be performed and we continued as planned. An incision was made just to the left of the umbilicus large enough to accommodate a 5 mm port. Veress needle was inserted and saline drop test confirmed entry into the abdomen. Patient's abdomen was insufflated with carbon dioxide which she tolerated without incident. The abdomen was entered using the Optiview technique and a 5 mm scope. The abdomen was inspected and no damage from initial trocar placement or Veress needle placement was identified. No other abnormalities were identified within the 4 quadrants of the abdomen. An 11 mm port was placed in the left lower quadrant with care not to damage the epigastric vessels. A 5 mm port was placed in the suprapubic midline with care not to damage the bladder. The patient was placed in Trendelenburg position and rotated towards the left. The small bowel was swept away from the right lower quadrant. The cecum was grasped with an atraumatic grasper exposing the appendix. The appendix was moderately inflamed and there was some fibrinous exudate, however there was no evidence of perforation. There was some turbid fluid in the pelvis. A window was created between the base of the appendix and the mesoappendix. A ritter loaded endoscopic stapler was then used to divide the appendix at its base. A small portion of the cecum was taken as it of felt that it was slightly thickened at the base of the appendix. A ritter load was then used to divide the mesoappendix. Hemostasis was good. The appendix was placed in an Endo Catch bag and removed through the left lower quadrant port site. The right lower quadrant and pelvis was irrigated and hemostasis was found to be good. The left lower quadrant port site fascia was closed with a Feliciano-Anjelica device and an 0 Vicryl suture. 5 mm trochars were removed and the abdomen was allowed to collapse. The skin of all ports was closed with 4-0 Monocryl subcuticular sutures. Dermabond was placed over the wounds. The patient was extubated in the operating room and taken to the PACU where he recovered without apparent incident. All sponge, instrument and needle counts were correct at the conclusion of the procedure. The patient tolerated the p rocedure well. The physician's assistant health educator was present and scrubbed for the entirety of the case. He was critical in positioning the patient, prepping and draping, retraction and exposure, driving the laparoscope, closure the incisions, and placement of the dressings. I attest to the content of the Intraoperative Record and any orders documented therein. Any exceptions are noted below.
--- NOTE | 2021-09-30 16:26 | Anesthesiology Progress Note ---
Date of Service September 30, 2021 Anesthesia Post Procedure Vital Signs Vital Signs: Temp Pulse Pulse Pulse Resp BP BP 09/30/21 16:15 59 L 12 151/68 H 09/30/21 16:05 62 20 165/79 H 09/30/21 15:57 36.4 C L 66 16 114/56 L 09/30/21 14:40 36.5 C 68 18 09/30/21 13:30 66 23 174/86 H 09/30/21 13:04 72 19 09/30/21 12:53 66 18 09/30/21 12:20 62 17 09/30/21 11:28 36.4 C L 72 16 157/66 H BP Pulse Ox 09/30/21 16:15 96 09/30/21 16:05 96 09/30/21 15:57 99 09/30/21 14:40 166/75 H 98 09/30/21 13:30 09/30/21 13:04 09/30/21 12:53 96 09/30/21 12:20 95 09/30/21 11:28 96 Pain Intensity Abdomen: Pain Intensity: 3 Transfer of Care Handoff Completed per policy Notes Mental Status: alert / awake / arousable and participated in evaluation Patient Amnestic to Procedure: Yes Nausea / Vomiting: adequately controlled Pain: adequately controlled Airway Patency, RR, SpO2: stable & adequate BP & HR: stable & adequate Hydration State: stable & adequate Anesthetic Complications: no major complications apparent
[2021-09-30] MEDS: fentaNYL citrate 100 MCG/2 ML VIAL IV PRN ×2 (16:37→16:45)
[2021-09-30] MEDS ORDERED: oxyCODONE HCL IR 5 MG TAB (IMMEDIATE RELEASE) PO PRN ×2 (17:15)
[2021-09-30] MEDS ORDERED: MoRPHine SULFATE 2 MG/ML CARP IV PRN (17:15)
[2021-09-30] MEDS ORDERED: ACETAMINOPHEN 325 MG TAB PO PRN (17:15)
[2021-09-30] MEDS ORDERED: cloNIDine HCL 0.1 MG TAB PO SCH (17:15)
[2021-09-30] MEDS ORDERED: LACTATED RINGER'S 1,000 ML IV SCH (17:15)
[2021-09-30] MEDS ORDERED: MoRPHine SULFATE 4 MG/ML 1 ML CARP\\VIAL IV PRN (17:15)
[2021-09-30] MEDS ORDERED: Nursing to Pharmacy Communication SCH ×2 (17:45→20:00)
[2021-09-30] MEDS: METOPROLOL TARTRATE 50 MG TAB PO SCH (19:42)
[2021-09-30] MEDS: DORZOLAMIDE HCL 2% OPH SOLN 10 ML BTL OPL SCH (19:46)
[2021-09-30] MEDS: cilostazoL 100 MG TAB PO SCH (19:47)
[2021-09-30] MEDS ORDERED: METOPROLOL TARTRATE 50 MG TAB PO SCH (21:00)
[2021-09-30] MEDS ORDERED: ROSUVASTATIN CALCIUM 10 MG TAB PO SCH (21:00)
[2021-09-30] MEDS ORDERED: LATANOPROST 0.005% OP SOLN 2.5 ML BTL OPL SCH (21:00)
[2021-09-30] MEDS: sulfaSALAzine 500 MG TABLET PO SCH (21:41)
--- NOTE | 2021-10-01 06:15 | Electrocardiogram Report ---
Test Reason : Blood Pressure : / mmHG Vent. Rate : 064 BPM Atrial Rate : 064 BPM P-R Int : 170 ms QRS Dur : 092 ms QT Int : 410 ms P-R-T Axes : 016 019 018 degrees QTc Int : 422 ms Normal sinus rhythm Possible Septal infarct (cited on or before 30-SEP-2021) Abnormal ECG When compared with ECG of 12-NOV-2007 11:54, No significant change Confirmed by Tito Coffman ([id number]) on 10/01/2021 6:15:33 AM Referred By: REFERRED SELF Confirmed By:Tito Coffman
--- NOTE | 2021-10-01 07:42 | Surgery Progress Note ---
Date of Service October 01, 2021 Assessment & Plan (1) Appendicitis: Plan: POD 1 lap appy d/c if tolerates breakfast Admission and Anticipated Discharge Date Admission Date: September 30, 2021 Supervising Physician Co-Signing Physician Notes pnt s&e, agree with above. POD#1 lap appy, doing well, tolerating diet and pain controlled. afvss, abd soft. appropriately ttp, incisions w/o infection. d/c to home, f/u in 2 weeks, activity restrictions and wound care instructions reviewed. return precautions given. Subjective not much sleep but otherwise doing ok, tolerating diet, some incisional pain, able to void Physical Exam Gastrointestinal (Abdomen): Inspection/Auscultation: + abdominal surgical incision (dry); abdomen not distended Percussion/Palpation: abdomen soft Results & Data ([facility]) Vital Signs (Past 12 Hours) Vital Signs Temp Pulse Resp BP Pulse Ox 10/01/21 02:31 36.9 C 69 16 135/65 96 09/30/21 22:16 36.8 C 73 18 123/65 96 09/30/21 19:45 36.5 C 77 16 147/61 H 95 PG Care Time/CCT Total # of Minutes Spent Total Time Spent with Patient: Total time spent is greater than 50% in coordination of care (as documented) at patient's floor/unit and/or counseling patient: Coding Level of Care Code None Diagnoses Appendicitis K35.890 Acute appendicitis type: other Appendicitis type: acute appendicitis (1) Appendicitis Acute appendicitis type: other Appendicitis type: acute appendicitis Qualified Code(s): K35.890 - Other acute appendicitis without perforation or gangrene
--- NOTE | 2021-10-01 07:44 | Discharge Summary ---
Date of Service October 01, 2021 Admission HPI Per Admitting Provider 81 y/o male woke up at 5 AM with pain in RLQ. Had loose BMs. Pain persisted and came to the ED. Had colonoscopy about 2 years ago and has these routinely for polyps. Has 25-30 year h/o Crohn's but well managed with sulfasalazine. Principal Diagnosis Acute appendicitis Discharge Exam Constitutional WD/WN, vitals as above Gastrointestinal (Abdomen) Inspection/Auscultation: + abdominal surgical incision (dry); abdomen not distended Percussion/Palpation: abdomen soft Discharge Data Allergies Allergy/AdvReac Type Severity Reaction Status Date / Time No Known Allergies Allergy Unknown Verified 09/30/21 13:59 Consultations 09/30/21 13:19 ED Decision to Admit Stat Procedures Performed Operation Date: 09/30/21 07:50 Actual Procedures p Laparoscopic Appendectomy(Not Applicable) - Garrick Siegel DO, FACS Ordered Studies 09/30/21 11:45 CT abd pelvis IV con only Stat Hospital Course (1) Appendicitis: 81 y/o male presented to the ER with abdominal pain. White count was 11,[address] was consistent with acute appendicitis. He was taken to the operating room for laparoscopic appendectomy and transferred to the surgical floor for overnight observation. In the morning he was able to advance diet and tolerate oral analgesics. He was stable for discharge home. Total Time Total Time Spent Total Time Spent (In Minutes): 15 Discharge Plan Discharge Items Patient Disposition: Home - Self-Care Reason For Visit: S/P LAP APPY Discharge Diagnosis: appendicitis Activity: Per Instructions section Lifting: No more than 10 pounds Bathing Comment: may shower; no soaking in tubs/pools Exercise/Sports: Wait until after follow-up appointment Driving/Machine Use: no driving while taking narcotics for pain Non-emergency contact: Surgeon Call non-emergency contact if: you have any medication questions, your symptoms worsen, your pain is not controlled, your pain is worsening, your pain is concerning for you, you have a fever, your temperature is above 101.5, your wound has increased redness, your wound has increased drainage and your wound pain has increased Follow-up/Referrals: Garrick Siegel DO, FACS [Physician] - 10/14/21 1:30 pm (Please call to schedule follow up in clinic within 2 weeks) Vijay Cash MD [Primary Care Provider] - Diet: Regular and Heart Healthy Addtl Attending Provider Instructions: Pending Studies at Discharge: Yes Studies:: surgical pathology Stand-Alone Forms: My [facility] Medications and DC Order Prescriptions: New oxycodone-acetaminophen [Percocet] 5-325 mg tablet 1 - 2 tab PO .q4-6h PRN (Reason: pain, for initial therapy, max 6 tabs per day) Qty: 12 RF: 0 Continued sulfasalazine 500 mg tablet 1.5 g PO BID Qty: 540 RF: 0 folic acid 1 mg tablet 1 mg PO DAILY Qty: 90 RF: 3 nifedipine 60 mg tablet extended release 60 mg PO DAILY RF: 0 spironolactone [Aldactone] 25 mg tablet 25 mg PO 1700 RF: 0 aspirin 81 mg tablet,delayed release (DR/EC) 81 mg PO QAM RF: 0 clonidine HCl 0.1 mg tablet 0.1 mg PO 1700 RF: 0 lisinopril 40 mg tablet 40 mg PO QAM RF: 0 multivitamin tablet 1 tab PO QAM RF: 0 metoprolol tartrate [Lopressor] 50 mg tablet 50 mg PO BID RF: 0 cilostazol 100 mg tablet 100 mg PO BID RF: 0 timolol maleate 0.5 % Drops 1 drp OPL QAM RF: 0 cholecalciferol (vitamin D3) [Vitamin D3] 2,000 unit Tablet 2,000 unit PO QAM RF: 0 dorzolamide 2 % drops 1 drp OPL BID RF: 0 rosuvastatin 10 mg tablet 10 mg PO DAILY RF: 0 Cholestyramine Light 4 gram powder 1 ea PO DAILY PRN (Reason: Diarrhea) RF: 0 latanoprost 0.005 % drops 1 drp OPL HS RF: 0 Discharge Orders: Discharge Order (Routine); Ordered 10/01/21 Ordered By: Oswaldo Lyons Admission Data Admit Date/Time: 09/30/21 15:50 Attending Provider: Garrick Siegel Admit Provider: Garrick Siegel Primary Care Provider: Vijay Cash Other Providers: Garrick Siegel Other Interventions: Discharge Summary Assessment (RN) Last Done: 10/01/21 08:39 Coding Level of Care Code D/C DAY MANAGEMENT <30 MINS Diagnoses Appendicitis K35.890 Acute appendicitis type: other Appendicitis type: acute appendicitis
[2021-10-01] MEDS: cilostazoL 100 MG TAB PO SCH (07:58)
[2021-10-01] MEDS: METOPROLOL TARTRATE 50 MG TAB PO SCH (07:58)
[2021-10-01] MEDS: sulfaSALAzine 500 MG TABLET PO SCH (07:58)
[2021-10-01] MEDS: DORZOLAMIDE HCL 2% OPH SOLN 10 ML BTL OPL SCH (07:59)
[2021-10-01] MEDS ORDERED: ASPIRIN 81 MG ECTAB PO SCH (09:00)
[2021-10-01] MEDS ORDERED: TIMOLOL MALEATE 0.5% OP SOLN 5 ML BTL OP SCH (09:00)
[2021-10-01] MEDS ORDERED: NIFEdipine EXTENDED REL 30 MG TABCR PO SCH (09:00)
[2021-10-01] MEDS ORDERED: ROSUVASTATIN CALCIUM 10 MG TAB PO SCH (09:00)
== END 2021-10-01 09:44 | disposition home or self-care (01) ==
LOC: ED 11:24 → ASU 14:25 → 3E 14:25

== ENCOUNTER 2022-07-09 15:34 | Inpatient (IN) ==
--- NOTE | 2022-07-09 15:47 | ED Triage Note ---
Date of Service July 09, 2022 History of Present Illness This patient was briefly evaluated while in triage. An abbreviated physical exam was performed. 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 Physical Exam VITALS: Vitals are noted on the nurse's note and reviewed by myself. GENERAL: This is an 82 year old white male, in no acute distress, nondiaphoretic, well-developed well-nourished. SKIN: No obvious rashes, edema, erythema HEAD: Normocephalic atraumatic. EYES: Conjunctivae without injection, sclerae without icterus. NECK: No JVD. LUNGS: No retractions or accessory muscle use. MUSCULOSKELETAL: Normal gait. NEURO: Patient was alert and oriented to person place and time. No focal neurological deficits. Initial orders for labs and / or imaging were placed and patient was placed in the waiting area until a bed is available. Please see further documentation for the full ED course.
[2022-07-09] MEDS ORDERED: ADENOSINE IV SOLN 3 MG/ML 2 ML VIAL IV ONE (16:04)
[2022-07-09] MEDS ORDERED: SODIUM CHLORIDE 0.9% 1000ML 500 ML IV ONE (16:04)
--- NOTE | 2022-07-09 16:35 | XRay Report ---
XR chest 1V portable HISTORY: 82 years-old Male Chest Pain chest pain COMPARISON: CT abdomen and pelvis 09/30/2021, chest radiograph 02/16/2019 TECHNIQUE: AP view of the chest FINDINGS: Cardiomediastinal and hilar silhouettes are within normal limits. Prior median sternotomy with CABG. Atherosclerosis of aorta. No pneumothorax, pleural effusion, airspace consolidation or overt pulmonar y edema. Degenerative changes of the shoulders and spine. IMPRESSION: No acute process. ACT 112: Negative or not required by law. The above report was generated using voice recognition software. It may contain grammatical, syntax o r spelling errors. Electronically signed by: Juanpablo Doherty M.D. 07/09/2022 4:33 PM
[2022-07-09 16:43] LABS: Basophils # (auto) 0.06 K/uL (0-0.2); Basophils % (auto) 0.7 %; Eosinophils # (auto) 0.07 K/uL (0-0.50); Eosinophils % (auto) 0.8 %; Hematocrit (blood only) 36.7 % (40.1-51.0); Hemoglobin 12.6 g/dl (14.0-18.0); Immature Granulocytes # (auto) 0.04 K/uL (0.00-0.02); Immature Granulocytes % (auto) 0.5 %; Lymphocytes # (auto) 1.75 K/uL (1.2-3.4); Lymphocytes % (auto) 20.6 %; Mean Corpuscular Hemoglobin 34.1 pg (25.0-34.0); Mean Corpuscular Hgb Conc 34.3 g/dL (32.0-36.0); Mean Corpuscular Volume 99.5 fL (80.0-100.0); Mean Platelet Volume 11.4 fL (9.4-12.4); Monocytes # (auto) 1.06 K/uL (0.24-0.82); Monocytes % (auto) 12.5 %; Neutrophils # (auto) 5.51 K/uL (1.4-6.5); Neutrophils % (auto) 64.9 %; Nucleated RBC # (auto) 0.02 K/uL (0-0); Nucleated RBC % (auto) 0.2 %; Platelet Count 240 K/uL (130-400); RDW Coefficient of Variation 12.3 % (11.5-14.5); RDW Standard Deviation 44.4 fL (36.4-46.3); Red Blood Count 3.69 M/uL (4.63-6.08); White Blood Count 8.49 K/ul (4.8-10.8)
--- NOTE | 2022-07-09 16:51 | Emergency Department Note ---
Impression & Plan Non-ST elevation (NSTEMI) myocardial infarction, SVT (supraventricular tachycardia), Heart palpitations, Elevated troponin I level ED Provider Note NAME: JOCELYNN BLAKELY AGE: 82 SEX: M : 1940 ARRIVES VIA: Walk-In INFORMANT: Patient, ED PROVIDER(S): Emmanuel Corrales DO CHIEF COMPLAINT: Palpitations HPI: The patient is an 82-year-old male who presented to the emergency department for an evaluation of palpitations. The patient describes palpitations and dizziness. He does have a history of an irregular heartbeat in the past. He is on metoprolol. He states has been compliant with his outpatient medications. Last time he had this episode was a few months ago. He was seen by his primary planning analyst but by the time he got in the office the symptoms had resolved and he was in normal sinus rhythm. He denies having any chest pain or shortness of breath at this time. He has had no swelling in his legs. He has had no changes to his medications otherwise. He does not take blood thinners but does have a history of atrial fibrillation in the past. He also has a history of coronary artery disease and coronary artery bypass grafting in the past. The patient states that his symptoms were moderate. He tried Valsalva maneuver at home without relief. ROS: See above HPI for pertinent positives & negatives. A total of 10 systems reviewed and were otherwise negative. PAST MEDICAL HISTORY: See Below PAST SURGICAL HISTORY: See Below FAMILY HISTORY: See Below SOCIAL HISTORY: See Below HOME MEDICATIONS: See Below ALLERGIES: See Below VITALS: See Below PHYSICAL EXAMINATION: GENERAL: The patient is awake and alert. The patient is somewhat anxious appearing. EYES: The conjunctivae are clear. The pupils are round and reactive. EARS, NOSE, MOUTH AND THROAT: The nose is without any evidence of any deformity. NECK: The neck is nontender and supple. RESPIRATORY: Normal respiratory effort is noted there is no evidence of wheezing rhonchi or rales CARDIOVASCULAR: Tachycardic and regular heart sounds were noted auscultation. There is no definite murmur. GASTROINTESTINAL: The abdomen is soft. Abdomen is nontender. MUSCULOSKELETAL/EXTREMITIES: There is no evidence of gross deformity full range of motion is noted in the hips and shoulders. SKIN: There is no obvious evidence of any rash. There are no petechiae, pallor or cyanosis noted. NEUROLOGIC: Patient is awake alert and oriented x3. Strength was symmetric. MEDICAL DECISION MAKING: The patient is an 82-year-old male who presented to the emergency department for an evaluation of palpitations. The patient does have a history of paroxysmal atrial fibrillation but he states in the past he has had another abnormal heart rhythm. From his description it sounds though it could be related to an SVT. The patient states he has been compliant with his outpatient medications. His initial EKG appeared to be consistent with a narrow complex tachycardia. It was not as fast as I would expect for an SVT. The patient was treated with modified Valsalva maneuver but this would not break the SVT. He was then treated with adenosine and this did resolve his SVT. I discussed the patient's laboratory and radiographic studies with him. He did have serial troponin measurements in the emergency department. The second troponin measurement was elevated. I discussed his condition with his primary planning analyst. The patient was feeling much better on reevaluation. He has no chest pain or discomfort at this time. He has no shortness of breath. The patient ultimately did have a third troponin which was still going up. For this reason I will discuss his case with the [facility]. Triage Nursing notes reviewed. Prior medical records reviewed Vital Signs: reviewed and remarkable for elevated blood pressure. Differential diagnosis: Premature contractions, electrolyte abnormality, cardiac dysrhythmia, thyroid dysfunction, pulmonary embolism, infection, gastrointestinal, as well as other pathologies. ER treatment provided: See below Diagnostics interpreted by me: ECG: Initial EKG was obtained in the emergency department. My interpretation is narrow complex tachycardia at 120 bpm. There was some peaking of the T waves especially anteriorly as well as diffuse ST depressions noted in the lower lateral leads and inferior leads. This was compared to a tracing from September 30, 2021. The ST segment depressions as well as the rhythm are new compared to the previous tracing. A second EKG was obtained in the emergency department. My interpretation is sinus rhythm at 80 bpm. Significant improvement of the previously noted ST segment depressions was appreciated. Cardiac Monitoring: An order was placed for continuous cardiac monitoring. The monitor shows a rate of 71 bpm with sinus rhythm. Laboratory studies: As stated above and show below. Imaging studies: See below Consultation(s): I discussed this case with Dr. Coleman who is the patient's primary planning analyst. Dr. Quinones was notified about the patient. ED COURSE: Procedures: none Critical Care: I have personally spent greater than 35 minutes of critical care time in the direct management of this patient. This includes bedside care, interpretation of diagnostic studies, and testing, discussion with consultants, patient, and family members, and other required patient management activities. This 35 minutes is in excess of all separately billable procedures. Past Med/Surg History Medical History Abdominal pain Appendicitis Atrial fibrillation DX: MANY YRS AGO >METOPROLOL > NO CARDIOVERSIONS Crohns disease Glaucoma Hyperlipidemia Hypertension Hyponatremia Kidney stones PASSED ON OWN Osteoarthritis Spinal stenosis Surgical History History of back surgery L3-L4 History of cardiac cath 2005 > NO STENTS > PRIOR TO [place] History of colonoscopy History of coronary artery bypass graft TRIPLE > 2005 > [facility] > FOLLOWS DR. GAMBINO History of laparoscopic appendectomy (09/30/21) Laparoscopic Appendectomy - Garrick Siegel DO, FACS 09/30/2021 History of tonsillectomy Hx of hernia repair X3 Family History Father Colon cancer Social History Smoking Status: Never smoker Tobacco Type: Cigarettes Second Hand Exposure: No; Hx Alcohol Use: Yes Alcohol type: wine Hx Substance Use: No Preferred Language: Uzbek Communication Ability: Effective Preparation Room Manager Required: No Beliefs That Will Affect Care: None Current Living Situation: Spouse Feels Safe at Home: Yes Assistive Devices: None Allergies Allergies Allergy/AdvReac Type Severity Reaction Status Date / Time No Known Allergies Allergy Unknown Verified 06/09/22 13:22 Home Meds Home Medications Medication Instructions Recorded Confirmed aspirin 81 mg tablet,delayed 81 mg PO QAM 06/27/19 07/09/22 release lisinopril 40 mg tablet 40 mg PO QAM 06/27/19 07/09/22 multivitamin 1 tab PO QAM 06/27/19 07/09/22 spironolactone 25 mg tablet 25 mg PO 1700 06/27/19 07/09/22 (Aldactone) cilostazol 100 mg tablet 100 mg PO BID 09/08/19 07/09/22 metoprolol tartrate 50 mg tablet 50 mg PO BID 09/08/19 07/09/22 (Lopressor) cholecalciferol (vitamin D3) 50 2,000 unit PO QAM 10/20/19 07/09/22 mcg (2,000 unit) tablet (Vitamin D3) timolol maleate 0.5 % eye drops 1 drp ophthalmic (eye) QAM 10/20/19 07/09/22 nifedipine 60 mg tablet,extended 60 mg PO DAILY 03/13/20 07/09/22 release cholestyramine-aspartame 4 gram 1 ea PO DAILY PRN Diarrhea 09/30/21 07/09/22 oral powder (Cholestyramine Light) latanoprost 0.005 % eye drops 1 drp ophthalmic (eye) HS 09/30/21 07/09/22 rosuvastatin 10 mg tablet 10 mg PO DAILY 06/09/22 07/09/22 betamethasone dipropionate 0.05 % 1 applic topical UD 07/09/22 07/09/22 topical cream cetirizine 10 mg capsule (Zyrtec) 10 mg PO DAILY 07/09/22 07/09/22 coenzyme Q10 100 mg capsule (Co 100 mg PO BID 07/09/22 07/09/22 Q-10) isosorbide mononitrate 30 mg 30 mg PO UD PRN as directed 07/09/22 07/09/22 tablet,extended release 24 hr ketoconazole 2 % shampoo 1 applic topical UD 07/09/22 07/09/22 nitroglycerin 0.4 mg sublingual 0.4 mg sublingual UD PRN Chest Pain 07/09/22 07/09/22 tablet (Nitrostat) omega-3 fatty acids 1,000 mg 1,000 mg PO BID 07/09/22 07/09/22 capsule Previous Rx's Medication Instructions Recorded sulfasalazine 500 mg tablet 1.5 g PO BID #540 tabs 06/16/21 folic acid 1 mg tablet 1 mg PO DAILY #90 tabs 08/11/21 Results & Data (ED) Vital Signs Vital Signs - 24 hr 07/09/22 15:45 07/09/22 16:38 07/09/22 16:05 Pulse Rate 157 H 123 H Pulse Rate [Finger] 80 Pulse Rate from SpO2 Sensor Pulse Rhythm [Finger] Regular Pulse Strength [Finger] Normal Respiratory Rate 24 21 Respiratory Effort / Characteristics Non-Labored Respiratory Depth Normal Respiratory Pattern Regular Blood Pressure 72/49 L Blood Pressure [Left Arm] 114/54 L Blood Pressure Mean 56 Blood Pressure Mean [Left Arm] 74 Pulse Oximetry 93 96 Oxygen Delivery Method Room Air Room Air Sepsis Recent Fever Within 48 Hours No Sepsis New/Unexplained Change in Mental Status No Sepsis Action Taken by Nursing No Action Required 07/09/22 16:12 07/09/22 16:12 07/09/22 16:30 Pulse Rate 80 79 Pulse Rate [Finger] Pulse Rate from SpO2 Sensor Pulse Rhythm [Finger] Pulse Strength [Finger] Respiratory Rate 12 20 Respiratory Effort / Characteristics Respiratory Depth Respiratory Pattern Blood Pressure 115/56 L Blood Pressure [Left Arm] Blood Pressure Mean 75 Blood Pressure Mean [Left Arm] Pulse Oximetry Oxygen Delivery Method Sepsis Recent Fever Within 48 Hours Sepsis New/Unexplained Change in Mental Status Sepsis Action Taken by Nursing 07/09/22 16:40 07/09/22 16:40 07/09/22 17:00 Pulse Rate 81 78 Pulse Rate [Finger] Pulse Rate from SpO2 Sensor 82 77 Pulse Rhythm [Finger] Pulse Strength [Finger] Respiratory Rate 24 18 Respiratory Effort / Characteristics Respiratory Depth Respiratory Pattern Blood Pressure 114/54 L Blood Pressure [Left Arm] Blood Pressure Mean 74 Blood Pressure Mean [Left Arm] Pulse Oximetry 97 97 Oxygen Delivery Method Sepsis Recent Fever Within 48 Hours Sepsis New/Unexplained Change in Mental Status Sepsis Action Taken by Nursing 07/09/22 17:30 07/09/22 17:39 07/09/22 17:39 Pulse Rate 73 74 Pulse Rate [Finger] Pulse Rate from SpO2 Sensor 74 Pulse Rhythm [Finger] Pulse Strength [Finger] Respiratory Rate 20 22 Respiratory Effort / Characteristics Respiratory Depth Respiratory Pattern Blood Pressure 125/79 Blood Pressure [Left Arm] Blood Pressure Mean 94 Blood Pressure Mean [Left Arm] Pulse Oximetry 95 Oxygen Delivery Method Sepsis Recent Fever Within 48 Hours Sepsis New/Unexplained Change in Mental Status Sepsis Action Taken by Nursing 07/09/22 18:00 07/09/22 18:00 Pulse Rate 71 Pulse Rate [Finger] Pulse Rate from SpO2 Sensor 71 Pulse Rhythm [Finger] Pulse Strength [Finger] Respiratory Rate 23 Respiratory Effort / Characteristics Respiratory Depth Respiratory Pattern Blood Pressure 146/73 H Blood Pressure [Left Arm] Blood Pressure Mean 97 Blood Pressure Mean [Left Arm] Pulse Oximetry 97 Oxygen Delivery Method Sepsis Recent Fever Within 48 Hours Sepsis New/Unexplained Change in Mental Status Sepsis Action Taken by Jail Medications Current Medication List: was personally reviewed by me Laboratory Data Attestation: I reviewed the patient's lab results. Result diagrams: 07/09/22 16:15 07/09/22 16:15 Lab Results 07/09/22 07/09/22 07/09/22 Range/Units 16:15 16:15 16:15 WBC 8.49 (4.8-10.8) K/ul RBC 3.69 L (4.63-6.08) M/uL Hgb 12.6 L (14.0-18.0) g/dl Hct 36.7 L (40.1-51.0) % MCV 99.5 (80.0-100.0) fL MCH 34.1 H (25.0-34.0) pg MCHC 34.3 (32.0-36.0) g/dL RDW Std Deviation 44.4 (36.4-46.3) fL RDW Coeff of Sina 12.3 (11.5-14.5) % Plt Count 240 (130-400) K/uL MPV 11.4 (9.4-12.4) fL Immature Gran % (Auto) 0.5 % Neut % (Auto) 64.9 % Lymph % (Auto) 20.6 % Creek % (Auto) 12.5 % Eos % (Auto) 0.8 % Baso % (Auto) 0.7 % Neut # (Auto) 5.51 (1.4-6.5) K/uL Lymph # (Auto) 1.75 (1.2-3.4) K/uL Creek # (Auto) 1.06 H (0.24-0.82) K/uL Eos # (Auto) 0.07 (0-0.50) K/uL Baso # (Auto) 0.06 (0-0.2) K/uL Immature Gran # (Auto) 0.04 H (0.00-0.02) K/uL Absolute Nucleated RBC 0.02 H (0-0) K/uL Nucleated RBC % (auto) 0.2 % PT 11.1 (9.0-12.0) Seconds INR 1.0 (0.9-1.1) APTT 25.8 (21.0-31.0) Seconds PTT Ratio 0.9 Sodium 133 L (136-145) mmol/L Potassium 4.5 (3.5-5.1) mmol/L Chloride 99 (98-107) mmol/L Carbon Dioxide 25 (21-32) mmol/L Anion Gap 9 (3-11) BUN 13 (6-23) mg/dl Creatinine 1.12 (0.6-1.4) mg/dl Est Cr Clr Drug Dosing 54.2 ml/min Est GFR ( Amer) 70.5 ml/min Est GFR (Non-Af Amer) 60.8 ml/min BUN/Creatinine Ratio 11.6 (10-20) Glucose 125 H (70-99(Fasting)) mg/dl Calcium 9.9 (8.5-10.1) mg/dl Magnesium 1.8 (1.7-2.4) mg/dl Total Bilirubin 0.5 (0.2-1.0) mg/dl AST 26 (13-39) U/L ALT 17 (7-52) U/L Alkaline Phosphatase 75 (34-104) U/L Troponin I High Sens 15.4 (0-20) pg/ml Total Protein 7.4 (6.0-8.3) gm/dl Albumin 4.5 (3.4-5.0) gm/dl Globulin 2.9 (2.5-4.0) gm/dl Albumin/Globulin Ratio 1.6 (0.9-2) Lipase 36 (11-82) U/L TSH (0.300-4.500) uIu/ml Urine Color Urine Appearance (Clear) Urine pH (4.5-7.5) Ur Specific Conner (1.000-1.030) Urine Protein (Negative) Urine Glucose (UA) (Negative) Urine Ketones (Negative) Urine Blood (Negative) Urine Nitrite (Negative) Urine Bilirubin (Negative) Urine Urobilinogen (Negative) Ur Leukocyte Esterase (Negative) 07/09/22 07/09/22 07/09/22 Range/Units 16:15 16:56 17:35 WBC (4.8-10.8) K/ul RBC (4.63-6.08) M/uL Hgb (14.0-18.0) g/dl Hct (40.1-51.0) % MCV (80.0-100.0) fL MCH (25.0-34.0) pg MCHC (32.0-36.0) g/dL RDW Std Deviation (36.4-46.3) fL RDW Coeff of Sina (11.5-14.5) % Plt Count (130-400) K/uL MPV (9.4-12.4) fL Immature Gran % (Auto) % Neut % (Auto) % Lymph % (Auto) % Creek % (Auto) % Eos % (Auto) % Baso % (Auto) % Neut # (Auto) (1.4-6.5) K/uL Lymph # (Auto) (1.2-3.4) K/uL Creek # (Auto) (0.24-0.82) K/uL Eos # (Auto) (0-0.50) K/uL Baso # (Auto) (0-0.2) K/uL Immature Gran # (Auto) (0.00-0.02) K/uL Absolute Nucleated RBC (0-0) K/uL Nucleated RBC % (auto) % PT (9.0-12.0) Seconds INR (0.9-1.1) APTT (21.0-31.0) Seconds PTT Ratio Sodium (136-145) mmol/L Potassium (3.5-5.1) mmol/L Chloride (98-107) mmol/L Carbon Dioxide (21-32) mmol/L Anion Gap (3-11) BUN (6-23) mg/dl Creatinine (0.6-1.4) mg/dl Est Cr Clr Drug Dosing ml/min Est GFR ( Amer) ml/min Est GFR (Non-Af Amer) ml/min BUN/Creatinine Ratio (10-20) Glucose (70-99(Fasting)) mg/dl Calcium (8.5-10.1) mg/dl Magnesium (1.7-2.4) mg/dl Total Bilirubin (0.2-1.0) mg/dl AST (13-39) U/L ALT (7-52) U/L Alkaline Phosphatase (34-104) U/L Troponin I High Sens 127.2 H* D (0-20) pg/ml Total Protein (6.0-8.3) gm/dl Albumin (3.4-5.0) gm/dl Globulin (2.5-4.0) gm/dl Albumin/Globulin Ratio (0.9-2) Lipase (11-82) U/L TSH 2.760 (0.300-4.500) uIu/ml Urine Color Yellow Urine Appearance Clear (Clear) Urine pH 7.0 (4.5-7.5) Ur Specific Conner 1.011 (1.000-1.030) Urine Protein Negative (Negative) Urine Glucose (UA) Negative (Negative) Urine Ketones Negative (Negative) Urine Blood Negative (Negative) Urine Nitrite Negative (Negative) Urine Bilirubin Negative (Negative) Urine Urobilinogen Negative (Negative) Ur Leukocyte Esterase Negative (Negative) 07/09/22 Range/Units 18:42 WBC (4.8-10.8) K/ul RBC (4.63-6.08) M/uL Hgb (14.0-18.0) g/dl Hct (40.1-51.0) % MCV (80.0-100.0) fL MCH (25.0-34.0) pg MCHC (32.0-36.0) g/dL RDW Std Deviation (36.4-46.3) fL RDW Coeff of Sina (11.5-14.5) % Plt Count (130-400) K/uL MPV (9.4-12.4) fL Immature Gran % (Auto) % Neut % (Auto) % Lymph % (Auto) % Creek % (Auto) % Eos % (Auto) % Baso % (Auto) % Neut # (Auto) (1.4-6.5) K/uL Lymph # (Auto) (1.2-3.4) K/uL Creek # (Auto) (0.24-0.82) K/uL Eos # (Auto) (0-0.50) K/uL Baso # (Auto) (0-0.2) K/uL Immature Gran # (Auto) (0.00-0.02) K/uL Absolute Nucleated RBC (0-0) K/uL Nucleated RBC % (auto) % PT (9.0-12.0) Seconds INR (0.9-1.1) APTT (21.0-31.0) Seconds PTT Ratio Sodium (136-145) mmol/L Potassium (3.5-5.1) mmol/L Chloride (98-107) mmol/L Carbon Dioxide (21-32) mmol/L Anion Gap (3-11) BUN (6-23) mg/dl Creatinine (0.6-1.4) mg/dl Est Cr Clr Drug Dosing ml/min Est GFR ( Amer) ml/min Est GFR (Non-Af Amer) ml/min BUN/Creatinine Ratio (10-20) Glucose (70-99(Fasting)) mg/dl Calcium (8.5-10.1) mg/dl Magnesium (1.7-2.4) mg/dl Total Bilirubin (0.2-1.0) mg/dl AST (13-39) U/L ALT (7-52) U/L Alkaline Phosphatase (34-104) U/L Troponin I High Sens 959.8 H* D (0-20) pg/ml Total Protein (6.0-8.3) gm/dl Albumin (3.4-5.0) gm/dl Globulin (2.5-4.0) gm/dl Albumin/Globulin Ratio (0.9-2) Lipase (11-82) U/L TSH (0.300-4.500) uIu/ml Urine Color Urine Appearance (Clear) Urine pH (4.5-7.5) Ur Specific Conner (1.000-1.030) Urine Protein (Negative) Urine Glucose (UA) (Negative) Urine Ketones (Negative) Urine Blood (Negative) Urine Nitrite (Negative) Urine Bilirubin (Negative) Urine Urobilinogen (Negative) Ur Leukocyte Esterase (Negative) Administered Medications Discontinued Medications Adenosine (Adenosine Iv Soln 3 Mg/Ml 2 Ml Vial) Confirm Administered Dose 18 mg IV .STK-MED ONE Stop: 07/09/22 16:05 Last Admin: 07/09/22 16:14 Dose: 6 mg Documented By: TANA Sodium Chloride (Nss 1000ml) 500 mls @ 999 mls/hr IV .Q31M ONE Stop: 07/09/22 16:34 Last Infusion: 07/09/22 16:48 Dose: 0 mls/hr Documented By: Admin: 07/09/22 16:12 Dose: 999 mls/hr Documented By: [facility] Imaging Data Radiologist's Impression: Chest X-Ray 07/09/22 16:04 XR chest 1V portable HISTORY: 82 years-old Male Chest Pain chest pain COMPARISON: CT abdomen and pelvis 09/30/2021, chest radiograph 02/16/2019 TECHNIQUE: AP view of the chest FINDINGS: Cardiomediastinal and hilar silhouettes are within normal limits. Prior median sternotomy with CABG. Atherosclerosis of aorta. No pneumothorax, pleural effusion, airspace consolidation or overt pulmonary edema. Degenerative changes of the shoulders and spine. IMPRESSION: No acute process. ACT 112: Negative or not required by law. The above report was generated using voice recognition software. It may contain grammatical, syntax or spelling errors. Electronically signed by: Juanpablo Doherty M.D. 07/09/2022 4:33 PM Discharge Plan Visit Data Chief Complaint: Referred by Doctor Stated Complaint: REF BY , ABNORMAL HEART RATE 131, LIGHTHEADED ED Provider: Emmanuel Corrales Discharge Problem: Non-ST elevation (NSTEMI) myocardial infarction, SVT (supraventricular tachycardia), Heart palpitations, Elevated troponin I level Patient Disposition: Being Evaluated by Hospitalist Forms Stand Alone Forms: My [facility] Prescriptions Prescriptions: No Action sulfasalazine 500 mg tablet 1.5 g PO BID Qty: 540 0RF folic acid 1 mg tablet 1 mg PO DAILY Qty: 90 3RF nifedipine 60 mg tablet extended release 60 mg PO DAILY spironolactone [Aldactone] 25 mg tablet 25 mg PO 1700 aspirin 81 mg tablet,delayed release (DR/EC) 81 mg PO QAM lisinopril 40 mg tablet 40 mg PO QAM multivitamin tablet 1 tab PO QAM metoprolol tartrate [Lopressor] 50 mg tablet 50 mg PO BID cilostazol 100 mg tablet 100 mg PO BID timolol maleate 0.5 % Drops 1 drp ophthalmic (eye) QAM cholecalciferol (vitamin D3) [Vitamin D3] 2,000 unit Tablet 2,000 unit PO QAM Cholestyramine Light 4 gram powder 1 ea PO DAILY PRN (Reason: Diarrhea) latanoprost 0.005 % drops 1 drp ophthalmic (eye) HS rosuvastatin 10 mg tablet 10 mg PO DAILY ketoconazole 2 % shampoo 1 applic TOPICAL UD betamethasone dipropionate 0.05 % cream 1 applic TOPICAL UD isosorbide mononitrate 30 mg tablet extended release 24 hr 30 mg PO UD PRN (Reason: as directed) omega-3 fatty acids 1,000 mg Capsule 1,000 mg PO BID nitroglycerin [Nitrostat] 0.4 mg Tablet, Sublingual 0.4 mg sublingual UD PRN (Reason: Chest Pain) Rx Instructions: 1 every 5 min as needed with chest pain up to 3 doses in 15 minutes coenzyme Q10 [Co Q-10] 100 mg Capsule 100 mg PO BID Zyrtec 10 mg Capsule 10 mg PO DAILY Referrals Referrals: Vijay Cash MD [Primary Care Provider] -
[2022-07-09 17:03] LABS: Partial Thromboplastin Ratio 0.9; Partial Thromboplastin Time 25.8 Seconds (21.0-31.0); Prothrombin Time 11.1 Seconds (9.0-12.0)
[2022-07-09 17:09] LABS: Troponin I High Sensitivity 15.4 pg/ml (0-20)
[2022-07-09 17:14] LABS: Albumin Globulin Ratio 1.6 (0.9-2); Albumin Level 4.5 gm/dl (3.4-5.0); BUN Creatinine Ratio 11.6 (10-20); Bilirubin,Total 0.5 mg/dl (0.2-1.0); Calcium 9.9 mg/dl (8.5-10.1); Creatinine Clr Calc Pharmacy 54.2 ml/min; Est GFR (African American) 70.5 ml/min; Est GFR (Non-African American) 60.8 ml/min; Globulin 2.9 gm/dl (2.5-4.0); Magnesium 1.8 mg/dl (1.7-2.4); Potassium 4.5 mmol/L (3.5-5.1); Total Protein 7.4 gm/dl (6.0-8.3)
[2022-07-09 18:29] LABS: Appearance Urine Clear (Clear); Bilirubin Urine Negative (Negative); Blood Urine Negative (Negative); Color Urine Yellow; Glucose Urine UA Negative (Negative); Ketones Urine Negative (Negative); Leukocyte Esterase Urine Negative (Negative); Nitrite Urine Negative (Negative); Protein Urine Negative (Negative); Specific Gravity Urine 1.011 (1.000-1.030); Urobilinogen Urine Negative (Negative)
[2022-07-09] MEDS ORDERED: ASPIRIN CHEW 324 MG PO STA (19:20)
[2022-07-09] MEDS ORDERED: Heparin IV Adult Wt-Based Standard *NO* Bolus Protocol IV ONE (19:51)
--- NOTE | 2022-07-09 20:00 | History & Physical Report ---
Date of Service July 09, 2022 Assessment & Plan (1) SVT (supraventricular tachycardia): Plan: 82 y/o male w/ PMHx of CAD s/p CABG, HFpEF, HTN, HLD, Crohn's, prior tobacco abuse in remission, SVT, hyperhomocysteinemia, total occlusion of R vertebral, chronic hyponatremia, PAD who presented w/ hypotension and tachycardia (SVT), presenting w/ palpitations and elevated heart rate starting at 2pm. - converted to sinus after 18mg of adenosine in the ED - reviewed ecgs before and after conversion. after conversion: sinus 88, unchanged from ecg in 09/2021 - consult cardiology - replete electrolytes as needed (2) Elevated troponin: Plan: - elevation to 2168 noted. will follow. repeating trop 4 hours from last draw. - discontinued heparin drip in setting of absence of chest pain after resolution of svt - consideration elevation as 2/2 increased demand during svt episode (3) Crohns disease: Plan: - continue home sulfasalazine (4) Hyponatremia: Plan: - chronic. 133, at baseline. follow bmp (5) Hyperlipidemia: Plan: - continue home regimen (6) Hypertension: Plan: - hold home lisinopril in setting of JULIO (Cr baseline .8-.9. 1.12 this admission). Improved on subsequent lab draw, but hold for now. home dose 40mg daily is max dose. (7) Peripheral vascular disease: Plan: - continue home cilostazol - follows vascular as outpatient for diffuse PAD of lower extremities - also has <50% bilat carotid artery stenosis w/ total occlusion of r vertebral w/ high grade stenosis of R subclavian Plan NPO, in case chest pain worsens overnight. No IV fluids sq heparin full code pcu History of Present Illness Chief Complaint: hypotensive and tachycardic Primary Care Provider: Vijay Cash MD 82 y/o male w/ PMHx of CAD s/p CABG, HFpEF, HTN, HLD, Crohn's, prior tobacco abuse in remission, SVT, hyperhomocysteinemia, total occlusion of R vertebral, chronic hyponatremia, PAD who presented w/ hypotension and tachycardia (SVT), presenting w/ palpitations and elevated heart rate starting at 2pm. He had constant midsternal chest pressure 2/10 severity, w/o radiation. No orthopneic, pleuritic, or exertional. It did not feel like prior [place]. He had lightheadedness and diaphoresis. He took half of an imdur w/o relief. He did not take nitro. After receiving adenosine in the ED, his symptoms resolved completely. He follows [facility] cardiology. He states he has had episodes of svts times in past. Last episode was several months ago (after covid booster), prior to that was many years prior. He states his HR was 131 at highest at home. Lives independently w/ at home. He denies any current chest pain. ED course: Patient was given adenosine 18mg, aspirin chew, and 500 mL NSS bolus. Heparin drip was started in ED; discontinued upon inpatient admission. 72/49 at ED arrival, improved. 146/73. no leukocytosis. hb stable 12.6. Na 133 stable. hs trop 15.4->127.2->959.8.-> cxr w/o acute process Allergies Allergy/AdvReac Type Severity Reaction Status Date / Time No Known Allergies Allergy Unknown Verified 06/09/22 13:22 Home Medications Medication Instructions Recorded Confirmed Type aspirin 81 mg tablet,delayed 81 mg PO QAM 06/27/19 07/09/22 History release lisinopril 40 mg tablet 40 mg PO QAM 06/27/19 07/09/22 History multivitamin 1 tab PO QAM 06/27/19 07/09/22 History spironolactone 25 mg tablet 25 mg PO 1700 06/27/19 07/09/22 History (Aldactone) cilostazol 100 mg tablet 100 mg PO BID 09/08/19 07/09/22 History metoprolol tartrate 50 mg tablet 50 mg PO BID 09/08/19 07/09/22 History (Lopressor) cholecalciferol (vitamin D3) 50 2,000 unit PO QAM 10/20/19 07/09/22 History mcg (2,000 unit) tablet (Vitamin D3) timolol maleate 0.5 % eye drops 1 drp ophthalmic (eye) QAM 10/20/19 07/09/22 History nifedipine 60 mg tablet,extended 60 mg PO DAILY 03/13/20 07/09/22 History release sulfasalazine 500 mg tablet 1.5 g PO BID #540 tabs 06/16/21 07/09/22 Rx folic acid 1 mg tablet 1 mg PO DAILY #90 tabs 08/11/21 07/09/22 Rx cholestyramine-aspartame 4 gram 1 ea PO DAILY PRN Diarrhea 09/30/21 07/09/22 History oral powder (Cholestyramine Light) latanoprost 0.005 % eye drops 1 drp ophthalmic (eye) HS 09/30/21 07/09/22 History rosuvastatin 10 mg tablet 10 mg PO DAILY 06/09/22 07/09/22 History betamethasone dipropionate 0.05 % 1 applic topical UD 07/09/22 07/09/22 History topical cream cetirizine 10 mg capsule (Zyrtec) 10 mg PO DAILY 07/09/22 07/09/22 History coenzyme Q10 100 mg capsule (Co 100 mg PO BID 07/09/22 07/09/22 History Q-10) isosorbide mononitrate 30 mg 30 mg PO UD PRN as directed 07/09/22 07/09/22 History tablet,extended release 24 hr ketoconazole 2 % shampoo 1 applic topical UD 07/09/22 07/09/22 History nitroglycerin 0.4 mg sublingual 0.4 mg sublingual UD PRN Chest Pain 07/09/22 07/09/22 History tablet (Nitrostat) omega-3 fatty acids 1,000 mg 1,000 mg PO BID 07/09/22 07/09/22 History capsule Past Med/Surg History Medical History Abdominal pain Appendicitis Atrial fibrillation DX: MANY YRS AGO >METOPROLOL > NO CARDIOVERSIONS Crohns disease Glaucoma Hyperlipidemia Hypertension Hyponatremia Kidney stones PASSED ON OWN Osteoarthritis Peripheral vascular disease Spinal stenosis Surgical History History of back surgery L3-L4 History of cardiac cath 2005 > NO STENTS > PRIOR TO [place]PASS History of colonoscopy 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 GAMBINO History of laparoscopic appendectomy (09/30/21) Laparoscopic Appendectomy - Garrick Siegel, DO, FACS 09/30/2021 History of tonsillectomy Hx of hernia repair X3 Family History Father Colon cancer Social History Smoking Status: Former smoker Tobacco Type: Cigarettes Smoking End Date: 1992; Second Hand Exposure: No; Do You Dip or Chew Tobacco: No; Tobacco Cessation Education Requested by Patient: No Hx Alcohol Use: Yes Alcohol type: wine Hx Substance Use: No Preferred Language: Qatari Communication Ability: Effective Timing Inspector Required: No Beliefs That Will Affect Care: None Current Living Situation: Spouse Other Information That Helps Us Care for You: No Feels Safe at Home: Yes Safety Concerns: Feels Safe At This Time Assistive Devices: None Review of Systems Review of Systems: All systems reviewed & are unremarkable except as noted in HPI & below Physical Exam Physical Exam: General: Grossly A&O. NAD. Cooperative. HEENT: Atraumatic, normocephalic. EOMI. + R jvd. Pulm: Faint insp crackles RLL. No respiratory distress. Cardiac: RRR, -mrg. 1+ chronic R ankle swelling, no erythma. Abdominal: Nontender, nondistended, soft. Integ: Warm, dry, intact. Msk: Moving all extrem. Results & Data Results & Data ([facility]) Vital Signs (Past 12 Hours) Vital Signs Pulse Pulse Resp BP BP Pulse Ox O2 Del Method 07/09/22 18:00 71 23 97 07/09/22 18:00 146/73 H 07/09/22 17:39 125/79 07/09/22 17:39 74 22 95 07/09/22 17:30 73 20 07/09/22 17:00 78 18 97 07/09/22 16:40 81 24 97 07/09/22 16:40 114/54 L 07/09/22 16:30 79 20 07/09/22 16:12 80 12 07/09/22 16:12 115/56 L 07/09/22 16:05 123 H 21 07/09/22 16:38 80 24 114/54 L 96 Room Air 07/09/22 15:45 157 H 72/49 L 93 Room Air Laboratory Results Cardiac Enzymes 07/09/22 07/09/22 07/09/22 Range/Units 16:15 16:56 18:42 AST 26 (13-39) U/L Troponin I High Sens 15.4 127.2 H* D 959.8 H* D (0-20) pg/ml Coagulation 07/09/22 Range/Units 16:15 PT 11.1 (9.0-12.0) Seconds APTT 25.8 (21.0-31.0) Seconds CBC 07/09/22 Range/Units 16:15 WBC 8.49 (4.8-10.8) K/ul RBC 3.69 L (4.63-6.08) M/uL Hgb 12.6 L (14.0-18.0) g/dl Hct 36.7 L (40.1-51.0) % Plt Count 240 (130-400) K/uL Neut # (Auto) 5.51 (1.4-6.5) K/uL Lymph # (Auto) 1.75 (1.2-3.4) K/uL Rogers # (Auto) 1.06 H (0.24-0.82) K/uL Eos # (Auto) 0.07 (0-0.50) K/uL Baso # (Auto) 0.06 (0-0.2) K/uL Comprehensive Metabolic Panel 07/09/22 Range/Units 16:15 Sodium 133 L (136-145) mmol/L Potassium 4.5 (3.5-5.1) mmol/L Chloride 99 (98-107) mmol/L Carbon Dioxide 25 (21-32) mmol/L BUN 13 (6-23) mg/dl Creatinine 1.12 (0.6-1.4) mg/dl Glucose 125 H (70-99(Fasting)) mg/dl Calcium 9.9 (8.5-10.1) mg/dl AST 26 (13-39) U/L ALT 17 (7-52) U/L Alkaline Phosphatase 75 (34-104) U/L Total Protein 7.4 (6.0-8.3) gm/dl Albumin 4.5 (3.4-5.0) gm/dl Intake and Output 07/09/22 07/09/22 07/09/22 06:59 14:59 22:59 Intake Total 500 / 500 Balance 500 / 500 Intake: IV 500 / 500 Sodium Chloride 0.9% 1000ML 500 500 / 500 ml @ 999 mls/hr IV .Q31M ONE Rx#:[id number] Other: Weight 79.2 kg Weight Measurement Method Chair Scale Patient Weight 07/10/22 06:59 Weight 79.2 kg Diagnostic Findings Chest X-Ray 07/09/22 16:04 XR chest 1V portable HISTORY: 82 years-old Male Chest Pain chest pain COMPARISON: CT abdomen and pelvis 09/30/2021, chest radiograph 02/16/2019 TECHNIQUE: AP view of the chest FINDINGS: Cardiomediastinal and hilar silhouettes are within normal limits. Prior median sternotomy with CABG. Atherosclerosis of aorta. No pneumothorax, pleural effusion, airspace consolidation or overt pulmonary edema. Degenerative changes of the shoulders and spine. IMPRESSION: No acute process. ACT 112: Negative or not required by law. The above report was generated using voice recognition software. It may contain grammatical, syntax or spelling errors. Electronically signed by: Juanpablo Doherty M.D. 07/09/2022 4:33 PM Code Status & VTE Plan Code Status full VTE Prophylaxis Plan VTE Prophylaxis will be ordered: Yes Supervising Physician Co-Signing Physician Notes Attending addendum: I have physically seen this patient, have supervised the medical residents activities, and agree with the H&P unless as otherwise noted. Assessment and Plan: SVT/hypertension/elevated troponin- The patient will be admitted to telemetry for serial cardiac enzymes, serial EKG's, cardiac rhythm monitoring and a 2-D echocardiogram with Dopplers. Status post adenosine emergency department with conversion to sinus rhythm Elevated troponin, likely secondary to increased heart rate Patient reports feeling well at this time Continue aspirin, isosorbide mononitrate, nifedipine and spironolactone for now Hold lisinopril due to JULIO Consult cardiology Crohn's disease- Continue sulfasalazine Hyperlipidemia- Continue rosuvastatin PAD- Continue cilostazol Remaining orders and notations as noted Resident Activity Tracking Resident Involvement: Resident Care Provided Care Provided: Adult Hospital Medicine
[2022-07-09] MEDS ORDERED: HEPARIN SODIUM/DEXTROSE 25,000 UNITS/500 ML BAG IV SCH (20:15)
[2022-07-10] MEDS ORDERED: METOPROLOL TARTRATE 50 MG TAB PO STA (00:14)
[2022-07-10 01:20] LABS: Basophils # (auto) 0.04 K/uL (0-0.2); Basophils % (auto) 0.7 %; Eosinophils # (auto) 0.08 K/uL (0-0.50); Eosinophils % (auto) 1.4 %; Hematocrit (blood only) 31.9 % (40.1-51.0); Hemoglobin 10.6 g/dl (14.0-18.0); Immature Granulocytes # (auto) 0.02 K/uL (0.00-0.02); Immature Granulocytes % (auto) 0.4 %; Lymphocytes # (auto) 1.55 K/uL (1.2-3.4); Mean Corpuscular Hemoglobin 33.9 pg (25.0-34.0); Mean Corpuscular Hgb Conc 33.2 g/dL (32.0-36.0); Mean Corpuscular Volume 101.9 fL (80.0-100.0); Mean Platelet Volume 10.6 fL (9.4-12.4); Monocytes # (auto) 0.95 K/uL (0.24-0.82); Monocytes % (auto) 17.1 %; Neutrophils % (auto) 52.4 %; Platelet Count 162 K/uL (130-400); RDW Coefficient of Variation 12.6 % (11.5-14.5); RDW Standard Deviation 46.9 fL (36.4-46.3); Red Blood Count 3.13 M/uL (4.63-6.08); White Blood Count 5.54 K/ul (4.8-10.8)
[2022-07-10 01:41] LABS: Albumin Globulin Ratio 1.4 (0.9-2); Albumin Level 3.6 gm/dl (3.4-5.0); BUN Creatinine Ratio 16.1 (10-20); Bilirubin,Total 0.4 mg/dl (0.2-1.0); Calcium 8.9 mg/dl (8.5-10.1); Creatinine Clr Calc Pharmacy 65.2 ml/min; Est GFR (African American) 88.3 ml/min; Est GFR (Non-African American) 76.2 ml/min; Globulin 2.6 gm/dl (2.5-4.0); Magnesium 1.7 mg/dl (1.7-2.4); Total Protein 6.2 gm/dl (6.0-8.3)
[2022-07-10] MEDS: MAGNESIUM SULFATE / D5W 1 GM/100 ML BAG IV SCH ×2 (03:25→05:08)
[2022-07-10] MEDS ORDERED: HEPARIN SOD 5,000 UNIT/0.5 ML VIAL SQ SCH (06:00)
[2022-07-10] MEDS ORDERED: cilostazoL 100 MG TAB PO SCH (09:00)
[2022-07-10] MEDS ORDERED: sulfaSALAzine 500 MG TABLET PO SCH (09:00)
[2022-07-10] MEDS ORDERED: ROSUVASTATIN CALCIUM 10 MG TAB PO SCH (09:00)
[2022-07-10] MEDS ORDERED: NIFEdipine EXTENDED REL 30 MG TABCR PO SCH (09:00)
[2022-07-10] MEDS ORDERED: NON-FORMULARY MEDICATION (Coenzyme Q10 [Co Q-10] 100 mg Capsule) PO SCH (09:45)
[2022-07-10] MEDS ORDERED: ASPIRIN 81 MG ECTAB PO SCH (09:45)
[2022-07-10] MEDS ORDERED: lisinopril 40 MG TAB PO SCH (09:45)
[2022-07-10] MEDS ORDERED: CETIRIZINE HCL 10 MG TABLET PO SCH (09:45)
[2022-07-10] MEDS ORDERED: FOLIC ACID 1 MG TAB PO SCH (09:45)
[2022-07-10] MEDS ORDERED: CHOLECALCIFEROL 1,000 UNITS 25 MCG TAB PO SCH (09:45)
[2022-07-10] MEDS ORDERED: TIMOLOL MALEATE 0.5% OP SOLN 5 ML BTL OP SCH (10:00)
[2022-07-10] MEDS ORDERED: MULTIVITAMIN TAB PO SCH (10:00)
--- NOTE | 2022-07-10 12:35 | Cardiology Consultation ---
Date of Consultation July 10, 2022 Assessment & Plan (1) SVT (supraventricular tachycardia): Impression: 1. 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 Elevated HS Troponin 3. CAD with history CABG x 3 in 2007 4. Last echo 04/2022 with normal LV function with EF 70%, basal to mid inferior wall hypokinesis, type 2 diastolic dysfunction, aortic valve sclerosis, mild pulmonary hypertension 5. HTN 6. Chronic hyponatremia 7. PAD s/p left OFFSET PLATEMAKER of the femoral artery and popliteal artery 02/[address] Mon Mr. Bernal's SVT episode is likely AVNRT. It was aborted successfully with adenosine. We will follow in the office to discuss next steps ie. EP study and likely ablation. He does have an elevated bp today. His lisinopril was given late this morning. He continues on metoprolol as well. We can further adjust his antihypertensive regimen in the office if he remains with an elevated bp after discharge. He is not having any headaches or other symptoms. He is on appropriate CAD medications with ASA, bb, JARED and statin. He did have an elevation in his HS troponin, likely secondary to demand ischemia from the SVT episode. His lateral leads had mild ST depressions, resolved on today's EKG. His HS troponin is trending down. He is not having any chest discomfort or sob. I asked him to ambulate the halls a few times. If he remains without symptoms, he can be discharged from a cardiac perspective. History of Present Illness Attending Physician: Cesar Singer MD History of Present Illness Mr. Bernal presented to the ED yesterday after a few hours of fast heart rate with low blood pressure as well as mild chest discomfort and dizziness. In the ED he was in SVT. He was given 18 mg total of adenosine in the ED and converted back to a NSR. Today he is feeling well with no complaints. He has no further chest pain. He has been up and around the room without symptoms. No events on telemonitor. Allergies Allergy/AdvReac Type Severity Reaction Status Date / Time No Known Allergies Allergy Unknown Verified 06/09/22 13:22 Home Medications Medication Instructions Recorded Confirmed Type aspirin 81 mg tablet,delayed 81 mg PO QAM 06/27/19 07/09/22 History release lisinopril 40 mg tablet 40 mg PO QAM 06/27/19 07/09/22 History multivitamin 1 tab PO QAM 06/27/19 07/09/22 History spironolactone 25 mg tablet 25 mg PO 1700 06/27/19 07/09/22 History (Aldactone) cilostazol 100 mg tablet 100 mg PO BID 09/08/19 07/09/22 History metoprolol tartrate 50 mg tablet 50 mg PO BID 09/08/19 07/09/22 History (Lopressor) cholecalciferol (vitamin D3) 50 2,000 unit PO QAM 10/20/19 07/09/22 History mcg (2,000 unit) tablet (Vitamin D3) timolol maleate 0.5 % eye drops 1 drp ophthalmic (eye) QAM 10/20/19 07/09/22 History nifedipine 60 mg tablet,extended 60 mg PO DAILY 03/13/20 07/09/22 History release sulfasalazine 500 mg tablet 1.5 g PO BID #540 tabs 06/16/21 07/09/22 Rx folic acid 1 mg tablet 1 mg PO DAILY #90 tabs 08/11/21 07/09/22 Rx cholestyramine-aspartame 4 gram 1 ea PO DAILY PRN Diarrhea 09/30/21 07/09/22 History oral powder (Cholestyramine Light) latanoprost 0.005 % eye drops 1 drp ophthalmic (eye) HS 09/30/21 07/09/22 History rosuvastatin 10 mg tablet 10 mg PO DAILY 06/09/22 07/09/22 History betamethasone dipropionate 0.05 % 1 applic topical UD 07/09/22 07/09/22 History topical cream cetirizine 10 mg capsule (Zyrtec) 10 mg PO DAILY 07/09/22 07/09/22 History coenzyme Q10 100 mg capsule (Co 100 mg PO BID 07/09/22 07/09/22 History Q-10) isosorbide mononitrate 30 mg 30 mg PO UD PRN as directed 07/09/22 07/09/22 History tablet,extended release 24 hr ketoconazole 2 % shampoo 1 applic topical UD 07/09/22 07/09/22 History nitroglycerin 0.4 mg sublingual 0.4 mg sublingual UD PRN Chest Pain 07/09/22 07/09/22 History tablet (Nitrostat) omega-3 fatty acids 1,000 mg 1,000 mg PO BID 07/09/22 07/09/22 History capsule Patient History Medical History Abdominal pain Appendicitis Atrial fibrillation DX: MANY YRS AGO >METOPROLOL > NO CARDIOVERSIONS Crohns disease Glaucoma Hyperlipidemia Hypertension Hyponatremia Kidney stones PASSED ON OWN Osteoarthritis Peripheral vascular disease Spinal stenosis Surgical History History of back surgery L3-L4 History of cardiac cath 2005 > NO STENTS > PRIOR TO [place] History of colonoscopy History of coronary artery bypass graft TRIPLE > 2005 > [facility] > FOLLOWS DR. GAMBINO History of laparoscopic appendectomy (09/30/21) Laparoscopic Appendectomy - Garrick Siegel DO, FACS 09/30/2021 History of tonsillectomy Hx of hernia repair X3 Family History Father Colon cancer Social History Smoking Status: Former smoker Tobacco Type: Cigarettes Smoking End Date: 1992; Second Hand Exposure: No; Do You Dip or Chew Tobacco: No; Tobacco Cessation Education Requested by Patient: No Hx Alcohol Use: Yes Alcohol type: wine Hx Substance Use: No Preferred Language: Mongolian Communication Ability: Effective Cradle Placer Required: No Beliefs That Will Affect Care: None Current Living Situation: Spouse Other Information That Helps Us Care for You: No Feels Safe at Home: Yes Safety Concerns: Feels Safe At This Time Assistive Devices: None Review of Systems Review of Systems: All systems reviewed & are unremarkable except as noted in HPI & below Physical Exam Constitutional: WD/WN, vitals as above Respiratory: normal respiratory effort, lungs clear to auscultation Cardiovascular: RRR, no murmur, no edema Skin: no rashes, warm and dry Neurologic: moves all extremities and awake Psychiatric: A+Ox3, euthymic affect Results & Data ([facility]) Vital Signs (Past 12 Hours) Vital Signs Temp Pulse Pulse Resp BP Pulse Ox O2 Del Method 07/10/22 11:40 36.7 C 59 L 20 175/67 H 97 Room Air 07/10/22 07:44 54 L 07/10/22 06:59 36.6 C 60 20 152/61 H 96 Room Air 07/10/22 03:26 36.7 C 58 L 18 156/69 H 96 Room Air
--- NOTE | 2022-07-10 13:00 | Discharge Summary ---
Date of Service July 10, 2022 Admission HPI Per Admitting Provider 82 y/o male w/ PMHx of CAD s/p CABG, HFpEF, HTN, HLD, Crohn's, prior tobacco abuse in remission, SVT, hyperhomocysteinemia, total occlusion of R vertebral, chronic hyponatremia, PAD who presented w/ hypotension and tachycardia (SVT), presenting w/ palpitations and elevated heart rate starting at 2pm. He had constant midsternal chest pressure 2/10 severity, w/o radiation. No orthopneic, pleuritic, or exertional. It did not feel like prior [place]. He had lightheadedness and diaphoresis. He took half of an imdur w/o relief. He did not take nitro. After receiving adenosine in the ED, his symptoms resolved completely. He follows [facility] cardiology. He states he has had episodes of svts times in past. Last episode was several months ago (after covid booster), prior to that was many years prior. He states his HR was 131 at highest at home. Lives independently w/ at home. He denies any current chest pain. ED course: Patient was given adenosine 18mg, aspirin chew, and 500 mL NSS bolus. Heparin drip was started in ED; discontinued upon inpatient admission. 72/49 at ED arrival, improved. 146/73. no leukocytosis. hb stable 12.6. Na 133 stable. hs trop 15.4->127.2->959.8.-> cxr w/o acute process Admission Exam Per Admitting Provider Principal Diagnosis Supraventricular tachycardia Discharge Exam Constitutional WD/WN, vitals as above Respiratory normal respiratory effort, lungs clear to auscultation Cardiovascular RRR, no murmur, no edema Gastrointestinal (Abdomen) normal bowel sounds, soft, nontender, no hepatosplenomegaly Discharge Data Allergies Allergy/AdvReac Type Severity Reaction Status Date / Time No Known Allergies Allergy Unknown Verified 06/09/22 13:22 Consultations 07/09/22 19:20 ED Decision to Admit Stat 07/09/22 23:39 Consult Cardiology Routine Hospital Course (1) SVT (supraventricular tachycardia): Oswaldo Bernal is an 82 year old male admitted to [facility] from July 09 - 2021 due to palpitations and chest pain. He was diagnosed with supraventricular tachycardia. This rhythm was successfully terminated with adenosine in the emergency room. He was seen by his senior asp net developer the following day and recommended discharge at this time with outpatient follow up. No changes to your outpatient medications were made. (2) Elevated troponin: (3) Crohns disease: (4) Hyponatremia: (5) Hyperlipidemia: (6) Hypertension: (7) Peripheral vascular disease: Total Time Total Time Spent Total Time Spent (In Minutes): 25 Discharge Plan Discharge Items Patient Disposition: Home - Self-Care Reason For Visit: SVT Discharge Diagnosis: SVT (supraventricular tachycardia) Activity: Per Instructions section Non-emergency contact: Customer Care Voice Consultant Call non-emergency contact if: you have any medication questions and your symptoms worsen Follow-up/Referrals: Kiet Coleman DO [Physician] - (SVT follow up 1-2 weeks) Vijay Cash MD [Primary Care Provider] - 07/17/22 9:10 am (with Dr. Barnes) Diet: Heart Healthy and Low Sodium (2gm) Addtl Attending Provider Instructions: You were admitted to [facility] from July 09 - 2021 due to palpitations and chest pain. You were diagnosed with SVT (supraventricular tachycardia). This rhythm was successfully terminated with adenosine in the emergency room. You were seen by your senior asp net developer the following day and recommended discharge at this time with outpatient follow up. No changes to your outpatient medications were made. Recommend light activity until follow up with your senior asp net developer. Please return to the ER if you have recurrent chest pain. Pending Studies at Discharge: No Stand-Alone Forms: [facility], Smoking Cessation Medications and DC Order Prescriptions: Continued sulfasalazine 500 mg tablet 1.5 g PO BID Qty: 540 0RF folic acid 1 mg tablet 1 mg PO DAILY Qty: 90 3RF nifedipine 60 mg tablet extended release 60 mg PO DAILY spironolactone [Aldactone] 25 mg tablet 25 mg PO 1700 aspirin 81 mg tablet,delayed release (DR/EC) 81 mg PO QAM lisinopril 40 mg tablet 40 mg PO QAM multivitamin tablet 1 tab PO QAM metoprolol tartrate [Lopressor] 50 mg tablet 50 mg PO BID cilostazol 100 mg tablet 100 mg PO BID timolol maleate 0.5 % Drops 1 drp ophthalmic (eye) QAM cholecalciferol (vitamin D3) [Vitamin D3] 2,000 unit Tablet 2,000 unit PO QAM Cholestyramine Light 4 gram powder 1 ea PO DAILY PRN (Reason: Diarrhea) latanoprost 0.005 % drops 1 drp ophthalmic (eye) HS rosuvastatin 10 mg tablet 10 mg PO DAILY ketoconazole 2 % shampoo 1 applic TOPICAL UD betamethasone dipropionate 0.05 % cream 1 applic TOPICAL UD isosorbide mononitrate 30 mg tablet extended release 24 hr 30 mg PO UD PRN (Reason: as directed) omega-3 fatty acids 1,000 mg Capsule 1,000 mg PO BID nitroglycerin [Nitrostat] 0.4 mg Tablet, Sublingual 0.4 mg sublingual UD PRN (Reason: Chest Pain) Rx Instructions: 1 every 5 min as needed with chest pain up to 3 doses in 15 minutes coenzyme Q10 [Co Q-10] 100 mg Capsule 100 mg PO BID Zyrtec 10 mg Capsule 10 mg PO DAILY Discharge Orders: Discharge Order (Routine); Ordered 07/10/22 Ordered By: Cesar Singer Admission Data Admit Date/Time: 07/09/22 22:12 Attending Provider: Cesar Sniger Admit Provider: Ramon Goldman Primary Care Provider: Vijay Cash Other Providers: Kiet Coleman Other Interventions: Discharge Summary Assessment (RN) Last Done: 07/10/22 13:50 Coding Level of Care Code D/C DAY MANAGEMENT <30 MINS Diagnoses SVT (supraventricular tachycardia) I47.1 Elevated troponin R77.8 Crohns disease K50.90 Hyponatremia E87.1 Hyperlipidemia E78.5 Hypertension I10 Peripheral vascular disease I73.9
--- NOTE | 2022-07-10 15:34 | XCELERA ---
[id number]
[2022-07-10] MEDS ORDERED: SPIRONOLACTONE 25 MG TAB PO SCH (17:00)
--- NOTE | 2022-07-10 19:34 | Billing Data ---
Date of Service July 10, 2022 Coding Level of Care Code INT OBSERVATION CARE 70M LVL 3
[2022-07-10] MEDS ORDERED: LATANOPROST 0.005% OP SOLN 2.5 ML BTL OP SCH (21:00)
[2022-07-10] MEDS ORDERED: METOPROLOL TARTRATE 50 MG TAB PO SCH (21:00)
--- NOTE | 2022-07-11 22:12 | Electrocardiogram Report ---
Test Reason : Blood Pressure : / mmHG Vent. Rate : 088 BPM Atrial Rate : 088 BPM P-R Int : 168 ms QRS Dur : 088 ms QT Int : 350 ms P-R-T Axes : 064 044 022 degrees QTc Int : 423 ms Normal sinus rhythm Septal infarct , age undetermined Nonspecific ST abnormality Abnormal ECG When compared with ECG of 09-JUL-2022 15:59, Sinus rhythm has replaced Supraventricular tachycardia Confirmed by Tito Coffman ([id number]) on 07/11/2022 10:12:30 PM Referred By: REFERRED SELF Confirmed By:Tito Coffman
--- NOTE | 2022-07-11 22:12 | Electrocardiogram Report ---
Test Reason : Blood Pressure : / mmHG Vent. Rate : 128 BPM Atrial Rate : 122 BPM P-R Int : 000 ms QRS Dur : 088 ms QT Int : 304 ms P-R-T Axes : 000 035 -32 degrees QTc Int : 443 ms Poor data quality, interpretation may be adversely affected Supraventricular tachycardia Nonspecific ST and T wave abnormality Abnormal ECG When compared with ECG of 30-SEP-2021 14:03, Supraventricular tachycardia has replaced Sinus rhythm Confirmed by Tito Coffman ([id number]) on 07/11/2022 10:11:54 PM Referred By: REFERRED SELF Confirmed By:Tito Coffman
--- NOTE | 2022-07-11 23:19 | Electrocardiogram Report ---
Test Reason : Blood Pressure : / mmHG Vent. Rate : 056 BPM Atrial Rate : 056 BPM P-R Int : 176 ms QRS Dur : 088 ms QT Int : 444 ms P-R-T Axes : 009 024 023 degrees QTc Int : 428 ms Sinus bradycardia Otherwise normal ECG When compared with ECG of 09-JUL-2022 16:08, Vent. rate has decreased BY 32 BPM Confirmed by Tito Coffman ([id number]) on 07/11/2022 11:18:41 PM Referred By: REFERRED SELF Confirmed By:Tito Coffman
== END 2022-07-10 14:43 | disposition home or self-care (01) | DRG 309 ==
LOC: ED 15:34 → 4W 22:12 → SUATTDRO 22:12 → 4W 07-10 00:08
DX: Z20.822 Contact with and (suspected) exposure to COVID-19; I25.10 Atherosclerotic heart disease of native coronary artery without angina pectoris; Z79.02 Long term (current) use of antithrombotics/antiplatelets; E87.1 Hypo-osmolality and hyponatremia; I50.32 Chronic diastolic (congestive) heart failure; I73.9 Peripheral vascular disease, unspecified; E78.5 Hyperlipidemia, unspecified; Z79.899 Other long term (current) drug therapy; Z79.82 Long term (current) use of aspirin; I47.1 Supraventricular tachycardia; I24.8 Other forms of acute ischemic heart disease; Z95.1 Presence of aortocoronary bypass graft; I11.0 Hypertensive heart disease with heart failure; K50.90 Crohn's disease, unspecified, without complications; Z87.891 Personal history of nicotine dependence; E72.11 Homocystinuria

== ENCOUNTER 2024-12-29 13:10 | Inpatient (IN) ==
[2024-12-29 14:09] LABS: Basophils # (auto) 0.05 K/uL (0.00-0.20); Basophils % (auto) 0.6 %; Eosinophils # (auto) 0.12 K/uL (0.00-0.50); Eosinophils % (auto) 1.5 %; Hematocrit (blood only) 37.1 % (42.0-52.0); Immature Granulocytes # (auto) 0.04 K/uL (0.01-0.20); Immature Granulocytes % (auto) 0.5 %; Lymphocytes # (auto) 1.54 K/uL (1.20-3.40); Lymphocytes % (auto) 19.5 %; Mean Corpuscular Hemoglobin 32.8 pg (25.0-34.0); Mean Corpuscular Hgb Conc 32.3 g/dL (32.0-36.0); Mean Corpuscular Volume 101.4 fL (80.0-100.0); Mean Platelet Volume 10.9 fL (9.4-12.4); Monocytes # (auto) 0.83 K/uL (0.11-0.59); Monocytes % (auto) 10.5 %; Neutrophils # (auto) 5.32 K/uL (1.40-6.50); Neutrophils % (auto) 67.4 %; Platelet Count 168 K/uL (130-400); RDW Coefficient of Variation 12.8 % (11.5-14.5); Red Blood Count 3.66 M/uL (4.70-6.10)
[2024-12-29 14:28] LABS: Albumin Globulin Ratio 1.7 (0.9-2); Albumin Level 4.7 gm/dl (3.4-5.0); BUN Creatinine Ratio 20.7 (10-20); Bilirubin,Total 0.5 mg/dl (0.2-1.0); Calcium 9.6 mg/dl (8.6-10.3); Creatinine Clr Calc Pharmacy 42.1 ml/min; Globulin 2.7 gm/dl (2.5-4.0); Potassium 5.1 mmol/L (3.5-5.1); Total Protein 7.4 gm/dl (6.0-8.3)
[2024-12-29] MEDS: MoRPHine SULFATE 4 MG/ML 1 ML CARP\\VIAL IV STA (14:42)
--- NOTE | 2024-12-29 16:02 | Ultrasound Report ---
ABDOMINAL ULTRASOUND, LEFT lower QUADRANT HISTORY: Acute pain and swelling of left inguinal tissues L inguinal hernia pain. COMPARISON: CT 10/19/2024. FINDINGS: There is a bowel containing left inguinal hernia which is nonreducible. There is also a small amount of fluid within the hernia sac along with mesenteric fat. Opening of the hernia sac likely measures a pproximately 3 cm. IMPRESSION: Nonreducible bowel containing left inguinal hernia. ACT 112: Negative or not required by law. Electronically signed by: Juanpablo Doherty M.D. 12/29/2024 4:01 PM
--- NOTE | 2024-12-29 16:04 | Ultrasound Report ---
US scrotum/testicle CLINICAL HISTORY: 84 years-old Male with L groin pain. COMPARISON STUDY: Abdominal ultrasound of same day TECHNIQUE: Real-time, grayscale, and color Doppler sonography of the testes and scrotum is performed. Images are reviewed in the transverse and longitudinal planes. FINDINGS: RIGHT HEMISCROTUM: The right testis measures 3.8 x 3.1 x 2.8 cm and the parenchyma appears unremarkab le. No intratesticular mass is seen. Normal-appearing arterial inflow is present within the right farooq ticle. The right epididymal head appears normal. No varicocele. Small to moderate sized complex hydro keya. LEFT HEMISCROTUM: The left testis measures 3.8 x 3.0 x 2.7 cm and the parenchyma appears unremarkable . No intratesticular mass is seen. Normal-appearing arterial inflow is present within the left testic le. The left epididymal head appears normal. No varicocele. Small complex hydrocele. IMPRESSION: 1. No testicular torsion or mass. 2. Bilateral complex hydroceles. 3. No varicocele. ACT 112: Negative or not required by law. The above report was generated using voice recognition software. It may contain grammatical, syntax o r spelling errors. Electronically signed by: Juanpablo Doherty M.D. 12/29/2024 4:03 PM
--- NOTE | 2024-12-29 16:08 | Emergency Department Note ---
Impression & Plan Incarcerated left inguinal hernia ED Provider Note HISTORY OF PRESENT ILLNESS: Patient is a an 84-year-old male presenting with left inguinal pain. Patient reports that at 10:30 AM he was working at his desk writing checks and he developed immediate onset of pain to his left inguinal region. He reports he has a history of inguinal hernias but they are normally easily reducible. He reports he was unable to put this hernia back into his abdomen and his pain got significantly worse, prompting presentation to the emergency department. Patient denies any nausea or vomiting. Denies any fevers. He reports 10 out of 10 pain in the left inguinal region. ROS: as above PHYSICAL EXAM: Constitutional: Patient appears in no acute distress. HENT: Head: Normocephalic and atraumatic. Eyes: EOMI, PERRL Mouth/Throat: Mucous membranes moist. Neck: Trachea midline. Neck supple. Cardiovascular: RRR, No murmurs, rubs or gallops. Intact distal pulses. Pulmonary/Chest: No respiratory distress. Breath sounds clear and equal bilaterally. No wheezes or rales. Abdominal: Abdomen soft, no tenderness, rebound or guarding. Hard mass palpated in left inguinal region. Unable to reduce at bedside. No overlying skin changes. Musculoskeletal: No edema, tenderness or deformity noted. Skin: Warm and dry. No rash, erythema, pallor or cyanosis Psychiatric: Appropriate mood and affect for situation. Neurological: Alert and keenly responsive. CN II-XII grossly intact, moving all extremities equally and fully. MDM: - Vitals signs stable - History obtained via patient. History as above. - Chronic conditions affecting care: HTN; HLD; Crohn's disease - Differential diagnoses include, but are not limited to: Incarcerated hernia; testicular torsion; diverticulitis; colitis; small bowel obstruction - Order placed for continuous cardiac monitoring. At this time, monitor showed rate of 61 bpm with normal sinus rhythm, per my interpretation. - External medical records reviewed. Nephrology office visit note dated 08/14/2024 was reviewed. Patient was being seen for his chronic hyponatremia. - Laboratory workup interpreted by myself showed normal WBC; normal lactate; slight hyponatremia (Na 134) - UA negative for infection - US scrotum negative for torsion or mass. - US limited abdomen of left lower abdomen showed nonreducible bowel containing left inguinal hernia. - Patient was given 4 mg IV morphine for pain control on arrival. Attempted to reduce patient's hernia at bedside myself, but his hernia is rockhard and unable to be reduced into the inguinal canal. Patient is very uncomfortable and 0.5 mg IV Dilaudid ordered. - Discussed case with surgeon injection molding engineer, Dr. Alan, at 16:05. He presented to bedside and was able to reduce the patient's hernia after Dilaudid dosing. He requested that the patient be admitted to medicine and he will reevaluate the patient in the morning, as patient will likely need surgical repair. - Discussion was had with welfare case worker about patient's case and need for admission - Hospitalist consulted for admission - Patient admitted to [facility] Hospitalist service for further evaluation and management. ASSESSMENT AND PLAN: Diagnosis: incarcerated left inguinal hernia Plan: Admit Past Med/Surg History Problem List (Updated 12/29/24 @ 16:37 by Irene Hale MD) Incarcerated left inguinal hernia (Acute) Basal cell carcinoma of nose (Chronic) Shave biopsy on 09/22/23 Carpal tunnel syndrome Colon cancer BPH NOS w ur obs/LUTS Encounter for pre-operative examination Peripheral vascular disease "HAD BALLOONING W/DR. HERRON, [facility] ABOUT 2.5-3 YEARS AGO" > left leg Elevated troponin Non-ST elevation (NSTEMI) myocardial infarction (Acute) pt denies having a heart attack in the past. Elevated troponin I level (Acute) Heart palpitations (Acute) SVT (supraventricular tachycardia) (Acute) History of laparoscopic appendectomy (09/30/21) Laparoscopic Appendectomy - Garrick Siegel DO, FACS 09/30/2021 Crohns disease Hyperlipidemia Hypertension Hyponatremia Medical History Hx of non-ST elevation myocardial infarction (NSTEMI) (2021) per hx, pt denies having a heart attack in the past. Hypertension Hx of renal calculi passed on own History of cardioversion x 2 30 years ago, most recent was 2022 History of colon cancer (02/2023) resolved with surgery BPH NOS w ur obs/LUTS History of basal cell carcinoma (BCC) History of atrial fibrillation dx many years ago, cardioversion x 2, controlled with medication. follows with Dr. Coleman Hx of colonic polyps History of Mohs micrographic surgery for skin cancer Vertebral artery obstruction Subclavian artery disease Shoulder impingement both shoulders Rotator cuff tear PAD (peripheral artery disease) Left leg claudication Left knee DJD Hypercholesterolemia History of herniated intervertebral disc Crohn's colitis Coronary arteriosclerosis Cirrhosis of liver Atherosclerosis Arthropathy of lumbar facet joint Anemia Actinic keratosis Hx of supraventricular tachycardia ADMITTED TO [facility] 07/09/22 FOR SVT'S; "GIVEN A MEDICATION TO SLOW DOWN MY HEART RATE AND GET IT BEATING NORMAL AGAIN." Follows with Dr Coleman. History of COVID-19 09/05/22 > no issues since Spinal stenosis Osteoarthritis Glaucoma Surgical History Hx of colonoscopy with polypectomy H/O angioplasty left leg, dr. herron History of surgery Bilateral L5-S1 medial branch block Hx of appendectomy History of cataract surgery bilat with XEN stent to right History of carpal tunnel release b/l History of bowel resection (03/03/23) r/t tumor at [facility], no chemo, lymph nodes were clear per pt History of back surgery x2 L3 L4 Laminectomy Hx of hernia repair X3 - inguinal History of tonsillectomy History of cardiac cath (2005) 2006 > NO STENTS > PRIOR TO BYPASS History of coronary artery bypass graft (2005) TRIPLE > 2006 > [place] > FOLLOWS DR. COLEMAN Family History Father , 62yo Colon cancer Mother , 85yo No problems noted. Sister Alzheimer disease Sister No problems noted. Sister No problems noted. Sister No problems noted. Son No problems noted. Son No problems noted. Son No problems noted. Daughter No problems noted. 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 How many Children do You have: 4 Feels Safe at Home: Yes Assistive Devices: None Allergies Allergies Allergy/AdvReac Type Severity Reaction Status Date / Time No Known Allergies Allergy Unknown Verified 11/07/24 10:50 Home Meds Home Medications Medication Instructions Recorded Confirmed aspirin 81 mg tablet,delayed 81 mg PO QAM 06/27/19 11/07/24 release lisinopril 40 mg tablet 40 mg PO QAM 06/27/19 11/07/24 multivitamin 1 tab PO QAM 06/27/19 11/07/24 spironolactone 25 mg tablet 25 mg PO QPM 06/27/19 11/07/24 (Aldactone) cilostazol 100 mg tablet 100 mg PO BID 09/08/19 11/07/24 metoprolol tartrate 50 mg tablet 50 mg PO BID 09/08/19 11/07/24 (Lopressor) cholecalciferol (vitamin D3) 50 2,000 unit PO QPM 10/20/19 11/07/24 mcg (2,000 unit) tablet (Vitamin D3) timolol maleate 0.5 % eye drops 1 drp OPL QAM 10/20/19 10/27/24 latanoprost 0.005 % eye drops 1 drp OPL HS 09/30/21 10/27/24 cetirizine 10 mg capsule (Zyrtec) 10 mg PO DAILY PRN Allergy Symptoms 07/09/22 10/27/24 coenzyme Q10 100 mg capsule (Co 200 mg PO QAM 07/09/22 11/07/24 Q-10) isosorbide mononitrate 30 mg 30 mg PO QAM 07/09/22 11/07/24 tablet,extended release 24 hr ketoconazole 2 % shampoo 1 applic topical UD PRN SHAMPOO 07/09/22 10/27/24 nitroglycerin 0.4 mg sublingual 0.4 mg sublingual UD PRN Chest Pain 07/09/22 10/27/24 tablet (Nitrostat) dorzolamide 2 % eye drops 1 drp OPL BID 01/04/23 10/27/24 nifedipine 90 mg tablet,extended 90 mg PO QDL 08/03/23 11/07/24 release rosuvastatin 20 mg tablet 20 mg PO PM 08/03/23 11/07/24 betamethasone dipropionate 0.05 % 1 applic topical BID PRN Skin 04/18/24 10/27/24 topical cream Irritation clobetasol 0.05 % topical cream 1 applic topical BID PRN Rash 04/18/24 10/27/24 diphenhydramine 25 1 tab PO Q6H PRN Insomnia 04/18/24 10/27/24 mg-acetaminophen 500 mg tablet (Tylenol PM Extra Strength) furosemide 20 mg tablet (Lasix) 20 mg PO QAM PRN Edema 04/18/24 10/27/24 mupirocin 2 % topical ointment 1 applic topical BID PRN . 04/18/24 10/27/24 sulfasalazine 500 mg tablet 1.5 g PO BID 04/18/24 11/07/24 Previous Rx's Medication Instructions Recorded ibuprofen 200 mg tablet (Advil) 600 mg (3 x 200 mg) PO QID PRN 09/23/23 fever or pain #30 tabs folic acid 1 mg tablet 1 mg PO QPM #90 tabs 05/22/24 tamsulosin 0.4 mg capsule 0.4 mg PO QAM #90 caps 06/13/24 Results & Data (ED) Vital Signs Vital Signs - 24 hr 12/29/24 13:42 12/29/24 16:06 12/29/24 16:09 Temperature 36.5 C Temperature Source Temporal Artery Scan Pulse Rate 97 H 61 Pulse Rate [Apical] 59 L Respiratory Rate 18 16 Respiratory Effort / Characteristics Splinting (from pain) Respiratory Depth Shallow Blood Pressure 125/62 Blood Pressure [Left Arm] 194/83 H Blood Pressure Mean 83 Blood Pressure Mean [Left Arm] 120 Pulse Oximetry 98 97 Oxygen Delivery Method Room Air Room Air Sepsis Recent Fever Within 48 Hours No Sepsis New/Unexplained Change in Mental Status No Sepsis Action Taken by Nursing No Action Required Laboratory Data 12/29/24 13:50 12/29/24 13:50 Lab Results 12/29/24 12/29/24 Range/Units 13:50 16:00 WBC 7.90 (4.8-10.8) K/ul RBC 3.66 L (4.70-6.10) M/uL Hgb 12.0 L (14.0-18.0) g/dl Hct 37.1 L (42.0-52.0) % MCV 101.4 H (80.0-100.0) fL MCH 32.8 (25.0-34.0) pg MCHC 32.3 (32.0-36.0) g/dL RDW Std Deviation 48.0 H (36.4-46.3) fL RDW Coeff of Sina 12.8 (11.5-14.5) % Plt Count 168 (130-400) K/uL MPV 10.9 (9.4-12.4) fL Immature Gran % (Auto) 0.5 % Neut % (Auto) 67.4 % Lymph % (Auto) 19.5 % Lucas % (Auto) 10.5 % Eos % (Auto) 1.5 % Baso % (Auto) 0.6 % Neut # (Auto) 5.32 (1.40-6.50) K/uL Lymph # (Auto) 1.54 (1.20-3.40) K/uL Lucas # (Auto) 0.83 H (0.11-0.59) K/uL Eos # (Auto) 0.12 (0.00-0.50) K/uL Baso # (Auto) 0.05 (0.00-0.20) K/uL Immature Gran # (Auto) 0.04 (0.01-0.20) K/uL Sodium 134 L (136-145) mmol/L Potassium 5.1 (3.5-5.1) mmol/L Chloride 108 H (98-107) mmol/L Carbon Dioxide 22 (21-32) mmol/L Anion Gap 4 (3-11) BUN 28 H (6-23) mg/dl Creatinine 1.35 (0.6-1.4) mg/dl Est Cr Clr Drug Dosing 42.1 ml/min eGFR 51.77 BUN/Creatinine Ratio 20.7 H (10-20) Glucose 114 H (70-99(Fasting)) mg/dl Lactate 1.4 (0.4-2.0) mmol/L Calcium 9.6 (8.6-10.3) mg/dl Total Bilirubin 0.5 (0.2-1.0) mg/dl AST 20 (13-39) U/L ALT 12 (7-52) U/L Alkaline Phosphatase 68 (34-104) U/L Total Protein 7.4 (6.0-8.3) gm/dl Albumin 4.7 (3.4-5.0) gm/dl Globulin 2.7 (2.5-4.0) gm/dl Albumin/Globulin Ratio 1.7 (0.9-2) Urine Color Yellow Urine Appearance Clear (Clear) Urine pH 5.0 (4.5-7.5) Ur Specific [place] 1.021 (1.000-1.030) Urine Protein Trace H (Negative) Urine Glucose (UA) Negative (Negative) Urine Ketones Negative (Negative) Urine Blood Negative (Negative) Urine Nitrite Negative (Negative) Urine Bilirubin Negative (Negative) Urine Urobilinogen Negative (Negative) Ur Leukocyte Esterase Negative (Negative) Urine WBC (Auto) 0-5 (0-5) /hpf Urine RBC (Auto) 0-2 (0-2) /hpf U Hyaline Cast (Auto) 3-5 H (0-2) /lpf U Epithel Cells (Auto) 0-2 (0-2) /hpf Urine Bacteria (Auto) None Seen (None Seen) Administered Medications Discontinued Medications Hydromorphone HCl (Hydromorphone Inj 0.5 Mg/0.5 Ml Syr) 0.5 mg IV NOW STA Stop: 12/29/24 16:06 Last Admin: 12/29/24 16:09 Dose: 0.5 mg Documented By: MADDI Morphine Sulfate (Morphine Sulfate 4 Mg/Ml 1 Ml Carp\\Vial) 4 mg IV NOW STA Stop: 12/29/24 13:48 Last Admin: 12/29/24 14:42 Dose: 4 mg Documented By: PANCHITO Imaging Data Radiologist's Impression: Scrotum Ultrasound 12/29/24 13:47 US scrotum/testicle CLINICAL HISTORY: 84 years-old Male with L groin pain. COMPARISON STUDY: Abdominal ultrasound of same day TECHNIQUE: Real-time, grayscale, and color Doppler sonography of the testes and scrotum is performed. Images are reviewed in the transverse and longitudinal planes. FINDINGS: RIGHT HEMISCROTUM: The right testis measures 3.8 x 3.1 x 2.8 cm and the parenchyma appears unremarkable. No intratesticular mass is seen. Normal- appearing arterial inflow is present within the right testicle. The right epididymal head appears normal. No varicocele. Small to moderate sized complex hydrocele. LEFT HEMISCROTUM: The left testis measures 3.8 x 3.0 x 2.7 cm and the parenchyma appears unremarkable. No intratesticular mass is seen. Normal-appearing arterial inflow is present within the left testicle. The left epididymal head appears normal. No varicocele. Small complex hydrocele. IMPRESSION: 1. No testicular torsion or mass. 2. Bilateral complex hydroceles. 3. No varicocele. ACT 112: Negative or not required by law. The above report was generated using voice recognition software. It may contain grammatical, syntax or spelling errors. Electronically signed by: Juanpablo Doherty M.D. 12/29/2024 4:03 PM Abdomen Ultrasound 12/29/24 14:09 ABDOMINAL ULTRASOUND, LEFT lower QUADRANT HISTORY: Acute pain and swelling of left inguinal tissues L inguinal hernia pain. COMPARISON: CT 10/19/2024. FINDINGS: There is a bowel containing left inguinal hernia which is nonreducible. There is also a small amount of fluid within the hernia sac along with mesenteric fat. Opening of the hernia sac likely measures approximately 3 cm. IMPRESSION: Nonreducible bowel containing left inguinal hernia. ACT 112: Negative or not required by law. Electronically signed by: Juanpablo Doherty M.D. 12/29/2024 4:01 PM Discharge Plan Visit Data Chief Complaint: Groin Pain Stated Complaint: SEVERE LT GROIN PAIN ED Provider: Irene Hale Discharge Problem: Incarcerated left inguinal hernia Forms Stand Alone Forms: [facility] [employer] Prescriptions Prescriptions: No Action diphenhydramine-acetaminophen [Tylenol PM Extra Strength] 25-500 mg tablet 1 tab PO Q6H PRN (Reason: Insomnia) clobetasol 0.05 % cream 1 applic topical BID PRN (Reason: Rash) furosemide [Lasix] 20 mg tablet 20 mg PO QAM PRN (Reason: Edema) mupirocin 2 % ointment 1 applic topical BID PRN (Reason: .) sulfasalazine 500 mg tablet 1.5 g PO BID Rx Instructions: give with food (meal/snack) folic acid 1 mg tablet 1 mg PO QPM Qty: 90 3RF tamsulosin 0.4 mg capsule 0.4 mg PO QAM Qty: 90 3RF spironolactone [Aldactone] 25 mg tablet 25 mg PO QPM aspirin 81 mg tablet,delayed release (DR/EC) 81 mg PO QAM lisinopril 40 mg tablet 40 mg PO QAM multivitamin tablet 1 tab PO QAM metoprolol tartrate [Lopressor] 50 mg tablet 50 mg PO BID cilostazol 100 mg tablet 100 mg PO BID timolol maleate 0.5 % Drops 1 drp OPL QAM cholecalciferol (vitamin D3) [Vitamin D3] 2,000 unit Tablet 2,000 unit PO QPM latanoprost 0.005 % drops 1 drp OPL HS Rx Instructions: LEFT EYE nifedipine 90 mg Tablet Extended Release 90 mg PO QDL rosuvastatin 20 mg Tablet 20 mg PO PM ketoconazole 2 % shampoo 1 applic TOPICAL UD PRN (Reason: SHAMPOO) isosorbide mononitrate 30 mg tablet extended release 24 hr 30 mg PO QAM nitroglycerin [Nitrostat] 0.4 mg Tablet, Sublingual 0.4 mg sublingual UD PRN (Reason: Chest Pain) Rx Instructions: 1 every 5 min as needed with chest pain up to 3 doses in 15 minutes coenzyme Q10 [Co Q-10] 100 mg Capsule 200 mg PO QAM Zyrtec 10 mg Capsule 10 mg PO DAILY PRN (Reason: Allergy Symptoms) betamethasone dipropionate 0.05 % cream 1 applic TOPICAL BID PRN (Reason: Skin Irritation) dorzolamide 2 % drops 1 drp OPL BID ibuprofen [Advil] 200 mg tablet 600 mg PO QID PRN (Reason: fever or pain) Qty: 30 0RF Referrals Referrals: Ernesto Cash MD [Primary Care Provider] -
[2024-12-29] MEDS: HYDROmorphone INJ 0.5 MG/0.5 ML SYR IV STA (16:09)
[2024-12-29 16:14] LABS: Bacteria Urine Automated None Seen (None Seen); Epithelial Cell Urine Auto 0-2 /hpf (0-2); RBC Urine Automated 0-2 /hpf (0-2); WBC Urine Automated 0-5 /hpf (0-5)
[2024-12-29 16:21] LABS: Bilirubin Urine Negative (Negative); Blood Urine Negative (Negative); Color Urine Yellow; Glucose Urine UA Negative (Negative); Ketones Urine Negative (Negative); Leukocyte Esterase Urine Negative (Negative); Nitrite Urine Negative (Negative); Protein Urine Trace (Negative); Specific Gravity Urine 1.021 (1.000-1.030); Urobilinogen Urine Negative (Negative)
[2024-12-29 16:22] LABS: Appearance Urine Clear (Clear)
--- NOTE | 2024-12-29 16:50 | History & Physical Report ---
Date of Service December 29, 2024 Assessment & Plan (1) Incarcerated left inguinal hernia: (2) Non-ST elevation (NSTEMI) myocardial infarction: (3) SVT (supraventricular tachycardia): (4) Hypertension: (5) Hyperlipidemia: (6) Crohns disease: (7) Peripheral vascular disease: Plan L inguinal hernia- initially not reducible by ER provider, surgery consulted (Dr Alan) and was able to be reduced by surgery following pain medication. Does have hx R sided repair in the past >50yrs ago US w/ incarcerated hernia w/ loop of bowel with small amt fluid, opening of hernia sac ~3cm Lactic 1.4, hernia out for ~5hr and did repeat and remains wnl 1.2 Surgery consulted, Dr Alan --> recs monitoring ~12hrs and will eval in AM but likely plan for outpatient repair laparoscopically if no issues overnight IVF x 1 L for dehydration on exam and mild elevation in Cr to 1.35. UA w/ hyaline casts- Hold lisinopril/spironolactone for now to prevent worsened dehydration. 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 Discussed s/sx for incarceration/strangulation and discussed to notify nursing if occurs while inpatient and would need to be made NPO #HTN/HLD/Hx SVT/Hx CAD (NSTEMI) Continue home dose ISMN 30mg daily, metoprolol 50m BID, nifedipine 90mg daily, rosuvastatin 20mg daily HOLDING Lisinopril 40mg, spironolactone 25mg as above for dehydration/Cr elevation and IVF hydration has been ordered. Monitor to resume ASA on hold for AM in event needing surgery sooner but can resume if going home and can be held pre-op pending outpt f/u for laproscopic repair EKG w/ CP, nitro SL prn #Hx Chrons Hx bowel resection on the left near current hernia. 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 On admission noted to have L inguinal hernia which was rock hard/unable to be reduced but was given IV Dilaudid and Dr Alan from surgery notified who was able to reduce the hernia but recommends admission and monitoring given not doing any activity to cause this and high chance for recurrence and likely need for surgical intervention and will be admitted for pain control/observation and repeat eval in AM. Notable initial lactic was negative but was out for ~5hr and discussed w/ ER provider who rec consider repeating level and has been ordered. Patient evaluated in C12B with at bedside. Pain stable, Dilaudid worked better than morphine. Appears dry on exam. He does report having intermittent diarrhea over past 2 days and took Questran which they gave him in the past when he had his bowel resection which concerns him as the area is near hernia and concerns for needing this repaired. Discussed surgery believes if does not recur can plan for outpatient. Patient hoping to get addressed as soon as possible. Does have hx R hernia repair in the past but was >50 yrs ago and unsure who did this. He does have chronic swelling in the R leg at times, currently NONE. Notable did discuss he was just sitting at desk when occurred but when asked about any heavy lifting he and report while didn't happen today, he does life 40lb bag of pellets into the burner. Discussed if able to dc would AVOID any heavy lifting. FULL CODE ER course: Morphine 4mg IV x 1, Dilaudid 0.5mg. Abd US w/ nonreducible bowel containing left inguinal hernia repair Scrotum US w/o torsion or varicocele, does note b/l complex hydroceles Allergies Allergy/AdvReac Type Severity Reaction Status Date / Time No Known Allergies Allergy Unknown Verified 01/03/25 07:38 Home Medications Medication Instructions Recorded Confirmed Type aspirin 81 mg tablet,delayed 81 mg PO QAM 06/27/19 01/03/25 History release lisinopril 40 mg tablet 40 mg PO QAM 06/27/19 01/03/25 History multivitamin 1 tab PO QAM 06/27/19 01/03/25 History spironolactone 25 mg tablet 25 mg PO QPM 06/27/19 01/03/25 History (Aldactone) cilostazol 100 mg tablet 100 mg PO BID 09/08/19 01/03/25 History metoprolol tartrate 50 mg tablet 50 mg PO BID 09/08/19 01/03/25 History (Lopressor) cholecalciferol (vitamin D3) 50 2,000 unit PO QPM 10/20/19 01/03/25 History mcg (2,000 unit) tablet (Vitamin D3) timolol maleate 0.5 % eye drops 1 drp OPL QAM 10/20/19 01/03/25 History latanoprost 0.005 % eye drops 1 drp OPL HS 09/30/21 01/03/25 History cetirizine 10 mg capsule (Zyrtec) 10 mg PO DAILY PRN Allergy Symptoms 07/09/22 01/03/25 History coenzyme Q10 100 mg capsule (Co 200 mg PO QAM 07/09/22 01/03/25 History Q-10) isosorbide mononitrate 30 mg 30 mg PO QAM 07/09/22 01/03/25 History tablet,extended release 24 hr ketoconazole 2 % shampoo 1 applic topical UD PRN SHAMPOO 07/09/22 01/03/25 History nitroglycerin 0.4 mg sublingual 0.4 mg sublingual UD PRN Chest Pain 07/09/22 01/03/25 History tablet (Nitrostat) dorzolamide 2 % eye drops 1 drp OPL BID 01/04/23 01/03/25 History nifedipine 90 mg tablet,extended 90 mg PO QDL 08/03/23 01/03/25 History release rosuvastatin 20 mg tablet 20 mg PO QPM 08/03/23 01/03/25 History ibuprofen 200 mg tablet (Advil) 600 mg (3 x 200 mg) PO QID PRN 09/23/23 01/03/25 Rx fever or pain #30 tabs betamethasone dipropionate 0.05 % 1 applic topical BID PRN Skin 04/18/24 01/03/25 History topical cream Irritation clobetasol 0.05 % topical cream 1 applic topical BID PRN Rash 04/18/24 01/03/25 History diphenhydramine 25 1 tab PO Q6H PRN Insomnia 04/18/24 01/03/25 History mg-acetaminophen 500 mg tablet (Tylenol PM Extra Strength) furosemide 20 mg tablet (Lasix) 20 mg PO QAM PRN Edema 04/18/24 01/03/25 History mupirocin 2 % topical ointment 1 applic topical BID PRN . 04/18/24 01/03/25 History sulfasalazine 500 mg tablet 1.5 g PO BID 04/18/24 01/03/25 History folic acid 1 mg tablet 1 mg PO QPM #90 tabs 05/22/24 01/03/25 Rx tamsulosin 0.4 mg capsule 0.4 mg PO QAM #90 caps 06/13/24 01/03/25 Rx Past Med/Surg History Problem List (Updated 01/03/25 @ 08:07 by Louisa Quinn, MEGAN) Incarcerated left inguinal hernia (Acute) Basal cell carcinoma of nose (Chronic) Shave biopsy on 09/22/23 Carpal tunnel syndrome Colon cancer BPH NOS w ur obs/LUTS Encounter for pre-operative examination Peripheral vascular disease "HAD BALLOONING W/DR. HERRON, [place] ABOUT 2.5-3 YEARS AGO" > left leg Elevated troponin Non-ST elevation (NSTEMI) myocardial infarction (Acute) pt denies having a heart attack in the past. Elevated troponin I level (Acute) Heart palpitations (Acute) SVT (supraventricular tachycardia) (Acute) History of laparoscopic appendectomy (09/30/21) Laparoscopic Appendectomy - Garrick Siegel, , FACS 09/30/2021 Crohns disease Hyperlipidemia Hypertension Hyponatremia Medical History (Updated 01/03/25 @ 08:07 by Louisa Quinn, MEGAN) Umbilical hernia "Maybe from my colon resection" as per patient - reason for procedure 01/08/25 Incarcerated left inguinal hernia reason for procedure 01/08/25 Hx of non-ST elevation myocardial infarction (NSTEMI) (2021) per hx, pt denies having a heart attack in the past. Hypertension Hx of renal calculi passed on own History of cardioversion x 2 30 years ago, most recent was 2022 History of colon cancer (02/2023) resolved with surgery BPH NOS w ur obs/LUTS History of basal cell carcinoma (BCC) History of atrial fibrillation dx many years ago, cardioversion x 2, controlled with medication. follows with [facility]/Dr. Coleman Hx of colonic polyps History of Mohs micrographic surgery for skin cancer Vertebral artery obstruction Subclavian artery disease Shoulder impingement both shoulders Rotator cuff tear PAD (peripheral artery disease) "Had ballooning with Dr Herron" - yearly ultrasounds to monitor PSYCHIATRIC Left leg claudication Left knee DJD Hypercholesterolemia History of herniated intervertebral disc Crohn's colitis Coronary arteriosclerosis Cirrhosis of liver Atherosclerosis Arthropathy of lumbar facet joint Anemia Actinic keratosis Hx of supraventricular tachycardia Admitted to [facility] 07/09/22 for SVT's - "Given a medication to slow down my heart rate and get it beating normal again." - PSYCHIATRIC Dr Coleman History of COVID-19 09/05/22 > no issues since Spinal stenosis Osteoarthritis Glaucoma Surgical History (Updated 01/03/25 @ 08:07 by Louisa Quinn RN) Hx of colonoscopy with polypectomy H/O angioplasty left leg, dr. herron History of surgery Bilateral L5-S1 medial branch block Hx of appendectomy History of cataract surgery bilateral with XEN stent to right History of carpal tunnel release Bilateral History of bowel resection (03/03/23) r/t tumor at [facility] [place], no chemo, lymph nodes were clear per pt History of back surgery x2 L3 L4 Laminectomy Hx of hernia repair X3 - inguinal History of tonsillectomy History of cardiac cath (2005) 2005 > no stents > prior to bypass History of coronary artery bypass graft (2005) Triple > 2006 > [facility] > PSYCHIATRIC Dr Coleman Family History Father , 62yo Colon cancer Mother , 85yo No problems noted. Sister Alzheimer disease Sister No problems noted. Sister No problems noted. Sister No problems noted. Son No problems noted. Son No problems noted. Son No problems noted. Daughter No problems noted. 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 How many Children do You have: 4 Other Information That Helps Us Care for You: No Feels Safe at Home: Yes Safety Concerns: Feels Safe At This Time Assistive Devices: None Physical Exam 2 Physical Exam: General: 84yo male sitting in bed, at bedside, NAD HEENT: head atraumatic, normocephalic, mm DRY, trachea midline Resp: even/unlabored, no wheezing/rales, on room air CV: regular, rates controlled, no significant mrg, no pitting edema GI: +BS, slight distension but no overt tenderness, prior lower left quadrant scar from prior hemicolectomy noted, L inguinal hernia currently reduced, no redness/warmth or overt tenderness MSK/Neuro: nonfocal, not confused, answering questions appropriately Psych: AOx3, cooperative and pleasant during encounter Results & Data Results & Data Vital Signs (Past 12 Hours) Vital Signs Temp Pulse Pulse Resp BP BP Pulse Ox 12/29/24 16:09 61 12/29/24 16:06 59 L 16 194/83 H 97 12/29/24 13:42 36.5 C 97 H 18 125/62 98 O2 Del Method 12/29/24 16:09 12/29/24 16:06 Room Air 12/29/24 13:42 Room Air Laboratory Results 12/29/24 13:50 12/29/24 13:50 Lactic 1.4, 1.2 UA 3-5 hyaline casts Diagnostic Findings Scrotum Ultrasound 12/29/24 13:47 US scrotum/testicle CLINICAL HISTORY: 84 years-old Male with L groin pain. COMPARISON STUDY: Abdominal ultrasound of same day TECHNIQUE: Real-time, grayscale, and color Doppler sonography of the testes and scrotum is performed. Images are reviewed in the transverse and longitudinal planes. FINDINGS: RIGHT HEMISCROTUM: The right testis measures 3.8 x 3.1 x 2.8 cm and the parenchyma appears unremarkable. No intratesticular mass is seen. Normal- appearing arterial inflow is present within the right testicle. The right epididymal head appears normal. No varicocele. Small to moderate sized complex hydrocele. LEFT HEMISCROTUM: The left testis measures 3.8 x 3.0 x 2.7 cm and the parenchyma appears unremarkable. No intratesticular mass is seen. Normal-appearing arterial inflow is present within the left testicle. The left epididymal head appears normal. No varicocele. Small complex hydrocele. IMPRESSION: 1. No testicular torsion or mass. 2. Bilateral complex hydroceles. 3. No varicocele. ACT 112: Negative or not required by law. The above report was generated using voice recognition software. It may contain grammatical, syntax or spelling errors. Electronically signed by: Juanpablo Doherty M.D. 12/29/2024 4:03 PM Abdomen Ultrasound 12/29/24 14:09 ABDOMINAL ULTRASOUND, LEFT lower QUADRANT HISTORY: Acute pain and swelling of left inguinal tissues L inguinal hernia pain. COMPARISON: CT 10/19/2024. FINDINGS: There is a bowel containing left inguinal hernia which is nonreducible. There is also a small amount of fluid within the hernia sac along with mesenteric fat. Opening of the hernia sac likely measures approximately 3 cm. IMPRESSION: Nonreducible bowel containing left inguinal hernia. ACT 112: Negative or not required by law. Electronically signed by: Juanpablo Doherty M.D. 12/29/2024 4:01 PM Supervising Physician Co-Signing Physician Notes During face to face encounter, I obtained a history and physical examination, discussed plan of care with patient and answered any questions. I discussed plan of care with MARINA Walker. I reviewed above note and agree with it except for the following: Patient will be admitted for left inguinal hernia. WIll monitor overnight. if no symptoms, will discharge and schedule repair as an outpatient. PG Care Time/CCT Total # of Minutes Spent Total Time Spent with Patient: Total time spent is greater than 50% in coordination of care (as documented) at patient's floor/unit and/or counseling patient: Coding Level of Care Code 77892 INT INP/OBS CARE 3/75MIN Diagnoses Incarcerated left inguinal hernia K40.30 Non-ST elevation (NSTEMI) myocardial infarction I21.4 SVT (supraventricular tachycardia) I47.1 Hypertension I10 Hyperlipidemia E78.5 Crohns disease K50.90 Peripheral vascular disease I73.9
--- NOTE | 2024-12-29 16:51 | Surgery Consultation ---
Date of Consultation December 29, 2024 Assessment & Plan (1) Incarcerated left inguinal hernia: reduced at bedside recommend 12 hrs observation will need hernia repair electively as outpatient would do laparoscopically History of Present Illness History of Present Illness This is an 84YO with known recurrent left inguinal hernia here with left inguinal pain and a hard lump since this AM at 1030hrs. He reports he was unable to put this hernia back into his abdomen and his pain got significantly worse, prompting presentation to the emergency department. Patient denies any nausea or vomiting. Denies any fevers. The hernia was reduced at the bedside by me. Allergies Allergy/AdvReac Type Severity Reaction Status Date / Time No Known Allergies Allergy Unknown Verified 11/07/24 10:50 Home Medications Medication Instructions Recorded Confirmed Type aspirin 81 mg tablet,delayed 81 mg PO QAM 06/27/19 12/29/24 History release lisinopril 40 mg tablet 40 mg PO QAM 06/27/19 12/29/24 History multivitamin 1 tab PO QAM 06/27/19 12/29/24 History spironolactone 25 mg tablet 25 mg PO QPM 06/27/19 11/07/24 History (Aldactone) cilostazol 100 mg tablet 100 mg PO BID 09/08/19 12/29/24 History metoprolol tartrate 50 mg tablet 50 mg PO BID 09/08/19 12/29/24 History (Lopressor) cholecalciferol (vitamin D3) 50 2,000 unit PO QPM 10/20/19 12/29/24 History mcg (2,000 unit) tablet (Vitamin D3) timolol maleate 0.5 % eye drops 1 drp OPL QAM 10/20/19 12/29/24 History latanoprost 0.005 % eye drops 1 drp OPL HS 09/30/21 12/29/24 History cetirizine 10 mg capsule (Zyrtec) 10 mg PO DAILY PRN Allergy Symptoms 07/09/22 10/27/24 History coenzyme Q10 100 mg capsule (Co 200 mg PO QAM 07/09/22 12/29/24 History Q-10) isosorbide mononitrate 30 mg 30 mg PO QAM 07/09/22 11/07/24 History tablet,extended release 24 hr ketoconazole 2 % shampoo 1 applic topical UD PRN SHAMPOO 07/09/22 10/27/24 History nitroglycerin 0.4 mg sublingual 0.4 mg sublingual UD PRN Chest Pain 07/09/22 12/29/24 History tablet (Nitrostat) dorzolamide 2 % eye drops 1 drp OPL BID 01/04/23 12/29/24 History nifedipine 90 mg tablet,extended 90 mg PO QDL 08/03/23 12/29/24 History release rosuvastatin 20 mg tablet 20 mg PO PM 08/03/23 11/07/24 History ibuprofen 200 mg tablet (Advil) 600 mg (3 x 200 mg) PO QID PRN 09/23/23 12/29/24 Rx fever or pain #30 tabs betamethasone dipropionate 0.05 % 1 applic topical BID PRN Skin 04/18/24 10/27/24 History topical cream Irritation clobetasol 0.05 % topical cream 1 applic topical BID PRN Rash 04/18/24 10/27/24 History diphenhydramine 25 1 tab PO Q6H PRN Insomnia 04/18/24 12/29/24 History mg-acetaminophen 500 mg tablet (Tylenol PM Extra Strength) furosemide 20 mg tablet (Lasix) 20 mg PO QAM PRN Edema 04/18/24 10/27/24 History mupirocin 2 % topical ointment 1 applic topical BID PRN . 04/18/24 10/27/24 History sulfasalazine 500 mg tablet 1.5 g PO BID 04/18/24 12/29/24 History folic acid 1 mg tablet 1 mg PO QPM #90 tabs 05/22/24 10/27/24 Rx tamsulosin 0.4 mg capsule 0.4 mg PO QAM #90 caps 06/13/24 12/29/24 Rx Patient History Medical History Hx of non-ST elevation myocardial infarction (NSTEMI) (2021) per hx, pt denies having a heart attack in the past. Hypertension Hx of renal calculi passed on own History of cardioversion x 2 30 years ago, most recent was 2022 History of colon cancer (02/2023) resolved with surgery BPH NOS w ur obs/LUTS History of basal cell carcinoma (BCC) History of atrial fibrillation dx many years ago, cardioversion x 2, controlled with medication. follows with Dr. Coleman Hx of colonic polyps History of Mohs micrographic surgery for skin cancer Vertebral artery obstruction Subclavian artery disease Shoulder impingement both shoulders Rotator cuff tear PAD (peripheral artery disease) Left leg claudication Left knee DJD Hypercholesterolemia History of herniated intervertebral disc Crohn's colitis Coronary arteriosclerosis Cirrhosis of liver Atherosclerosis Arthropathy of lumbar facet joint Anemia Actinic keratosis Hx of supraventricular tachycardia ADMITTED TO [facility] 07/09/22 FOR SVT'S; "GIVEN A MEDICATION TO SLOW DOWN MY HEART RATE AND GET IT BEATING NORMAL AGAIN." Follows with Dr Coleman. History of COVID-19 09/05/22 > no issues since Spinal stenosis Osteoarthritis Glaucoma Surgical History Hx of colonoscopy with polypectomy H/O angioplasty left leg, dr. ramirez History of surgery Bilateral L5-S1 medial branch block Hx of appendectomy History of cataract surgery bilat with XEN stent to right History of carpal tunnel release b/l History of bowel resection (03/03/23) r/t tumor at [facility] [place], no chemo, lymph nodes were clear per pt History of back surgery x2 L3 L4 Laminectomy Hx of hernia repair X3 - inguinal History of tonsillectomy History of cardiac cath (2005) 2006 > NO STENTS > PRIOR TO BYPASS History of coronary artery bypass graft (2005) TRIPLE > 2006 > [facility] > FOLLOWS DR. COLEMAN Family History Father , 62yo Colon cancer Mother , 85yo No problems noted. Sister Alzheimer disease Sister No problems noted. Sister No problems noted. Sister No problems noted. Son No problems noted. Son No problems noted. Son No problems noted. Daughter No problems noted. 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 How many Children do You have: 4 Feels Safe at Home: Yes Assistive Devices: None Review of Systems Constitutional: no fever, no chills and no anorexia Eyes: no problem reported Ear, Nose, Mouth, Throat: no problem reported Respiratory: no cough and no dyspnea Cardiovascular: no chest pain Gastrointestinal: no abdominal pain, no nausea, no vomiting and no change in bowel habits Genitourinary: + problem reported (incarcerated left in guinal hernia, reduced) Musculoskeletal: no back pain Integumentary: no problem reported Neurologic: no localized weakness and no generalized weakness Psychiatric: no behavioral changes Hematologic / Lymphatic: no easy bleeding and no easy bruising Physical Exam Constitutional: WD/WN, vitals as above Eyes: no scleral abnormality ENMT: external ear and nose normal, oropharynx normal Neck: trachea midline Respiratory: normal respiratory effort, lungs clear to auscultation Cardiovascular: RRR, no murmur, no edema Gastrointestinal (Abdomen): Inspection/Auscultation: abdomen normal to inspection and normal bowel sounds; abdomen not distended Percussion/Palpation: abdomen soft; abdomen nontender Musculoskeletal: Head/Neck/Chest: normocephalic and head atraumatic Skin: no rashes, warm and dry Genitourinary: + hernia (left) Results & Data Vital Signs (Past 12 Hours) Vital Signs Temp Pulse Pulse Resp BP BP Pulse Ox 12/29/24 16:09 61 12/29/24 16:06 59 L 16 194/83 H 97 12/29/24 13:42 36.5 C 97 H 18 125/62 98 O2 Del Method 12/29/24 16:09 12/29/24 16:06 Room Air 12/29/24 13:42 Room Air Diagnostic Findings ABDOMINAL ULTRASOUND, LEFT lower QUADRANT HISTORY: Acute pain and swelling of left inguinal tissues L inguinal hernia pain. COMPARISON: CT 10/19/2024. FINDINGS: There is a bowel containing left inguinal hernia which is nonreducible. There is also a small amount of fluid within the hernia sac along with mesenteric fat. Opening of the hernia sac likely measures approximately 3 cm. IMPRESSION: Nonreducible bowel containing left inguinal hernia.
[2024-12-29] MEDS ORDERED: NITROGLYCERIN SL 0.4 MG/TAB TAB SL PRN (18:17)
[2024-12-29] MEDS ORDERED: oxyCODONE HCL IR 5 MG TAB (IMMEDIATE RELEASE) PO PRN (18:17)
[2024-12-29] MEDS ORDERED: ONDANSETRON INJ 2 MG/ML 2 ML VIAL IV PRN (18:17)
[2024-12-29] MEDS ORDERED: ACETAMINOPHEN 325 MG TAB PO PRN (18:17)
[2024-12-29] MEDS ORDERED: HYDROmorphone INJ 0.5 MG/0.5 ML SYR IV PRN (18:17)
[2024-12-29] MEDS ORDERED: FUROSEMIDE 20 MG TAB PO PRN (18:17)
[2024-12-29] MEDS ORDERED: CETIRIZINE HCL 10 MG TABLET PO PRN (18:36)
[2024-12-29] MEDS ORDERED: PNEUMOCOCCAL VACCINE (PCV20) 20-VAL CONJ-DIP CRM/PF 0.5 ML SYR IM ONE (18:39)
[2024-12-29 19:54] VITALS: RESP 20
[2024-12-29] MEDS: cilostazoL 100 MG TAB PO SCH (19:59)
[2024-12-29] MEDS: FOLIC ACID 1 MG TAB PO SCH (19:59)
[2024-12-29] MEDS: sulfaSALAzine 500 MG TABLET PO SCH (19:59)
[2024-12-29] MEDS: SODIUM CHLORIDE 0.9% 1,000 ML IV SCH (20:00)
[2024-12-29] MEDS: METOPROLOL TARTRATE 50 MG TAB PO SCH (20:00)
[2024-12-29] MEDS: CHOLECALCIFEROL 25 MCG (1000 UNITS) TAB PO SCH (20:00)
[2024-12-29] MEDS: ROSUVASTATIN CALCIUM 20 MG TAB PO SCH (20:00)
[2024-12-30 06:17] LABS: Hematocrit (blood only) 33.9 % (42.0-52.0); Hemoglobin 11.2 g/dl (14.0-18.0); Mean Corpuscular Hemoglobin 32.7 pg (25.0-34.0); Mean Corpuscular Volume 99.1 fL (80.0-100.0); Platelet Count 142 K/uL (130-400); RDW Coefficient of Variation 12.5 % (11.5-14.5); RDW Standard Deviation 45.3 fL (36.4-46.3); Red Blood Count 3.42 M/uL (4.70-6.10); White Blood Count 6.97 K/ul (4.8-10.8)
[2024-12-30 06:47] LABS: Calcium 8.7 mg/dl (8.6-10.3); Creatinine Clr Calc Pharmacy 54.1 ml/min; Magnesium 1.6 mg/dl (1.7-2.4); Potassium 4.5 mmol/L (3.5-5.1)
[2024-12-30 07:39] VITALS: BP 164/61; PULSE 74; TEMP 98.2; O2SAT 95
[2024-12-30] MEDS: MAGNESIUM SULFATE / D5W 1 GM/100 ML BAG IV ONE (08:40)
[2024-12-30] MEDS: ISOSORBIDE MONO EXTENDED REL 30 MG TABCR PO SCH (08:43)
[2024-12-30] MEDS: TAMSULOSIN HCL 0.4 MG CAP PO SCH (08:43)
--- NOTE | 2024-12-30 09:26 | Discharge Summary ---
Discharge Summary Date of Service December 30, 2024 Principal Dx & Hospital Course #1 = Principal Diagnosis (1) Incarcerated left inguinal hernia: (2) Non-ST elevation (NSTEMI) myocardial infarction: (3) SVT (supraventricular tachycardia): (4) Hypertension: (5) Hyperlipidemia: (6) Crohns disease: (7) Peripheral vascular disease: Plan L inguinal hernia- initially not reducible by ER provider, surgery consulted (Dr Alan) and was able to be reduced by surgery following pain medication. Does have hx R sided repair in the past >50yrs ago US w/ incarcerated hernia w/ loop of bowel with small amt fluid, opening of hernia sac ~3cm Lactic 1.4, hernia out for ~5hr and did repeat and remains wnl 1.2 Surgery consulted, Dr Alan --> recs monitoring ~12hrs and will eval in AM but likely plan for outpatient repair laparoscopically if no issues overnight IVF x 1 L for dehydration on exam and mild elevation in Cr to 1.35. UA w/ hyaline casts- Hold lisinopril/spironolactone for now to prevent worsened dehyd ration. 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 Discussed s/sx for incarceration/strangulation and discussed to notify nursing if occurs while inpatient and would need to be made NPO Left inguinal hernia reduced by surgery. Remained reduced in am. Will discharge home with out patient follow up for elective laparoscopic hernia repair. #HTN/HLD/Hx SVT/Hx CAD (NSTEMI) Continue home dose ISMN 30mg daily, metoprolol 50m BID, nifedipine 90mg daily, rosuvastatin 20mg daily HOLDING Lisinopril 40mg, spironolactone 25mg as above for dehydration/Cr elevation and IVF hydration has been ordered. Monitor to resume ASA on hold for AM in event needing surgery sooner but can resume if going home and can be held pre-op pending outpt f/u for laproscopic repair EKG w/ CP, nitro SL prn #Hx Chrons Hx bowel resection on the left near current hernia. 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 On admission noted to have L inguinal hernia which was rock hard/unable to be reduced but was given IV Dilaudid and Dr Alan from surgery notified who was able to reduce the hernia but recommends admission and monitoring given not doing any activity to cause this and high chance for recurrence and likely need for surgical intervention and will be admitted for pain control/observation and repeat eval in AM. Notable initial lactic was negative but was out for ~5hr and discussed w/ ER provider who rec consider repeating level and has been ordered. Patient evaluated in C12B with at bedside. Pain stable, Dilaudid worked better than morphine. Appears dry on exam. He does report having intermittent diarrhea over past 2 days and took Questran which they gave him in the past when he had his bowel resection which concerns him as the area is near hernia and concerns for needing this repaired. Discussed surgery believes if does not recur can plan for outpatient. Patient hoping to get addressed as soon as possible. Does have hx R hernia repair in the past but was >50 yrs ago and unsure who did this. He does have chronic swelling in the R leg at times, currently NONE. Notable did discuss he was just sitting at desk when occurred but when asked about any heavy lifting he and report while didn't happen today, he does life 40lb bag of pellets into the burner. Discussed if able to dc would AVOID any heavy lifting. FULL CODE ER course: Morphine 4mg IV x 1, Dilaudid 0.5mg. Abd US w/ nonreducible bowel containing left inguinal hernia repair Scrotum US w/o torsion or varicocele, does note b/l complex hydroceles Discharge Exam GENERAL APPEARANCE NAD, activity normal for age, well developed/ well nourished, no cyanosis, pallor, or diaphoresis. EYES lids/conjunctiva normal. EARS/NOSE/THROAT Mucous membranes moist, nares normal, lips/teeth normal uvula midline without oral pharyngeal erythema, exudate or swelling TMs normal bilaterally. No lymphangitis/lymphedema. HEAD/NECK normocephalic atraumatic, no facial trauma, neck is supple. RESPIRATORY respiratory effort normal, speaks in full sentences, no tripod position, no accessory muscle use. Lungs clear to auscultation without rhonchi, wheezes, rales CARDIAC Regular rate and rhythm, no edema. ABDOMINAL Soft, ND/NT. No evidence of fluid wave. No pulsatile masses on exam, rebound tenderness, Cutler sign or pain over Mcburney's point. MUSCLES/EXTREMITIES No abnormal range of motion, no swelling. SKIN Warm, pink and dry. No rashes, dermatoses, petechiae or lesions. NEUROLOGICAL Speech is clear and appropriate. Normal level of consciousness. Gait and coordination are normal. 5/5 strength in all extremities. PSYCH Normal mood and affect. Judgement/competence is appropriate Discharge Plan Discharge Items Patient Disposition: Home - Self-Care Reason For Visit: L INGUINAL HERNIA, POSSIBLE NEED FOR OR Discharge Diagnosis: Left inguinal hernia Activity: Resume your previous activity Non-emergency contact: Primary Care Provider Call non-emergency contact if: you have any medication questions Follow-up/Referrals: Paras Alan MD [Physician] - (Follow up for laparoscopic left inguinal hernia repair ) Ernesto Cash MD [Primary Care Provider] - Diet: Regular Addtl Attending Provider Instructions: Follow up with Surgery Dr. Alan Pending Studies at Discharge: No Stand-Alone Forms: My [facility] Resultly, Smoking Cessation Medications and DC Order Prescriptions: Continued diphenhydramine-acetaminophen [Tylenol PM Extra Strength] 25-500 mg tablet 1 tab PO Q6H PRN (Reason: Insomnia) clobetasol 0.05 % cream 1 applic topical BID PRN (Reason: Rash) furosemide [Lasix] 20 mg tablet 20 mg PO QAM PRN (Reason: Edema) mupirocin 2 % ointment 1 applic topical BID PRN (Reason: .) sulfasalazine 500 mg tablet 1.5 g PO BID Rx Instructions: give with food (meal/snack) folic acid 1 mg tablet 1 mg PO QPM Qty: 90 3RF tamsulosin 0.4 mg capsule 0.4 mg PO QAM Qty: 90 3RF spironolactone [Aldactone] 25 mg tablet 25 mg PO QPM aspirin 81 mg tablet,delayed release (DR/EC) 81 mg PO QAM lisinopril 40 mg tablet 40 mg PO QAM multivitamin tablet 1 tab PO QAM metoprolol tartrate [Lopressor] 50 mg tablet 50 mg PO BID cilostazol 100 mg tablet 100 mg PO BID timolol maleate 0.5 % Drops 1 drp OPL QAM cholecalciferol (vitamin D3) [Vitamin D3] 2,000 unit Tablet 2,000 unit PO QPM latanoprost 0.005 % drops 1 drp OPL HS Rx Instructions: LEFT EYE nifedipine 90 mg Tablet Extended Release 90 mg PO QDL rosuvastatin 20 mg Tablet 20 mg PO PM ketoconazole 2 % shampoo 1 applic TOPICAL UD PRN (Reason: SHAMPOO) isosorbide mononitrate 30 mg tablet extended release 24 hr 30 mg PO QAM nitroglycerin [Nitrostat] 0.4 mg Tablet, Sublingual 0.4 mg sublingual UD PRN (Reason: Chest Pain) Rx Instructions: 1 every 5 min as needed with chest pain up to 3 doses in 15 minutes coenzyme Q10 [Co Q-10] 100 mg Capsule 200 mg PO QAM Zyrtec 10 mg Capsule 10 mg PO DAILY PRN (Reason: Allergy Symptoms) betamethasone dipropionate 0.05 % cream 1 applic TOPICAL BID PRN (Reason: Skin Irritation) dorzolamide 2 % drops 1 drp OPL BID ibuprofen [Advil] 200 mg tablet 600 mg PO QID PRN (Reason: fever or pain) Qty: 30 0RF Discharge Orders: Discharge Order (Routine); Ordered 12/30/24 Ordered By: Jaime Maxwell Admission Data Admit Date/Time: 12/29/24 16:52 Attending Provider: Jaime Maxwell Admit Provider: Dexter Neumann Primary Care Provider: Ernesto Cash Other Providers: Dexter Neumann; aPras Alan Hospital Stay Data Consultations 12/29/24 16:40 ED Decision to Admit Stat 12/29/24 16:46 Consult General Surgery Stat Diagnostic Imagining Performed 12/29/24 13:47 US scrotum/testicle Stat 12/29/24 14:09 US abdomen limited Stat Pending Results Patient Have Any Pending Studies at Discharge: No Discharge Instructions Given to Patient (Per Discharging Provider) Follow up with Surgery Dr. Hegstrom Total Time Total Time Spent Total Time Spent (In Minutes): 50 Coding Level of Care Code 53718 INP/OBS DISCH >30 MIN Diagnoses Incarcerated left inguinal hernia K40.30 Non-ST elevation (NSTEMI) myocardial infarction I21.4 SVT (supraventricular tachycardia) I47.1 Hypertension I10 Hyperlipidemia E78.5 Crohns disease K50.90 Peripheral vascular disease I73.9
--- NOTE | 2024-12-30 09:34 | Surgery Progress Note ---
Date of Service December 30, 2024 Assessment & Plan (1) Incarcerated left inguinal hernia: Plan: discharge appt my clinic Monday 01/01 will arrange lap /R as outpatient Admission and Anticipated Discharge Date Admission Date: December 29, 2024 Subjective no abdominal pain no N/V doing well Review of Systems Constitutional: no fever and no chills Respiratory: no cough and no dyspnea Cardiovascular: no chest pain Gastrointestinal: no abdominal pain, no nausea, no vomiting and no change in bowel habits Neurologic: no localized weakness Psychiatric: no behavioral changes Physical Exam Constitutional: WD/WN, vitals as above Gastrointestinal (Abdomen): Inspection/Auscultation: abdomen normal to inspection, normal bowel sounds and + visible herniation (umbilical hernia; reducible); abdomen not distended Percussion/Palpation: abdomen soft; abdomen nontender, no guarding and abdomen not rigid Musculoskeletal: Head/Neck/Chest: normocephalic and head atraumatic Skin: no rashes, warm and dry Genitourinary: + hernia (reducible left inguinal hernia ) Results & Data Vital Signs (Past 12 Hours) Vital Signs Temp Pulse Pulse Resp BP Pulse Ox O2 Del Method 12/30/24 07:36 36.8 C 74 20 164/61 H 95 Room Air 12/30/24 07:00 62 12/30/24 05:20 36.6 C 69 20 98/62 L 94 Room Air 12/30/24 00:24 36.3 C L 59 L 20 174/71 H 97 Room Air 12/30/24 00:00 66
[2024-12-30] MEDS ORDERED: NIFEdipine EXTENDED REL 30 MG TABCR PO SCH (11:30)
--- NOTE | 2025-01-02 09:41 | Coding Query ---
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 Please assist us with the question(s) below: Coding Question(s): The diagnosis(es) below was documented in H&P and DS, but it doesn't appear there was any treatment for this specifically. Please indicate if it is still a possible diagnosis or ruled out. Physician's Response(s): NSTEMI ( x ) Diagnosed and POA ( ) Diagnosed and not POA ( ) Ruled out ( ) Other (please specify) MTDD
== END 2024-12-30 11:27 | disposition home or self-care (01) | DRG 393 ==
LOC: ED 13:10 → 2N 16:52 → SUATTDRO 16:52 → 2N 17:56

== ENCOUNTER 2025-06-26 05:40 | Inpatient (IN) ==
--- NOTE | 2025-06-22 13:05 | Anesthesiology Consultation ---
Date of Service June 22, 2025 Assessment & Plan (1) Encounter for pre-operative examination: Chart Review Chart Review: Acceptable Risk for Surgery (pending anesthesia evaluation DOS ) and Patient NOT seen in Pre Admission Testing -Infectious Disease screening: Per PAT nursing assessment on 06/18/25. No known infectious disease contacts in past 10 days or current infectious disease symptoms. No recent travel outside the country. Cardiology office visit 06/21/25= "... preoperative evaluation prior to planned femoral endarterectomy with patch repair and angioplasty of the popliteal artery... believe his risk for cardiac complications is in the range of 5%... having rather severe claudication symptoms... can do 4 METS... no progressive cardiac symptoms.. do not think stress testing at this point changes anything... had hernia repair in December which went well.. from a cardiac standpoint, he will remain on his current medications.... Laparoscopic right inguinal hernia and umbilical hernia repair 01/08/25= Done under [facility] with Grade 2 view with Elam #2. ETT #7.5 History Surgery Operation Date: 06/26/25 08:00 Proposed Procedures p Left Common Femoral Endarterectomy - Kel Mon MD s Left Leg Angiogram with Intervention - Kel Mon MD Height/Weight Height: 5 ft 11 in Weight: 78.018 kg Allergies Allergy/AdvReac Type Severity Reaction Status Date / Time No Known Allergies Allergy Unknown Verified 06/18/25 09:46 Medications Home Medications Medication Instructions Recorded Confirmed Last Taken aspirin 81 mg tablet,delayed 81 mg PO QAM 06/27/19 06/18/25 01/07/25 07:00 release lisinopril 40 mg tablet 40 mg PO QAM 06/27/19 06/18/25 01/08/25 06:00 multivitamin 1 tab PO QAM 06/27/19 06/18/25 01/06/25 spironolactone 25 mg tablet 25 mg PO QPM 06/27/19 06/18/25 01/07/25 22:00 (Aldactone) cilostazol 100 mg tablet 100 mg PO BID 09/08/19 06/18/25 01/07/25 21:00 metoprolol tartrate 50 mg tablet 50 mg PO BID 09/08/19 06/18/25 01/08/25 06:00 (Lopressor) cholecalciferol (vitamin D3) 50 2,000 unit PO QPM 10/20/19 06/18/25 01/06/25 mcg (2,000 unit) tablet (Vitamin D3) timolol maleate 0.5 % eye drops 1 drp OPL QAM 10/20/19 06/18/25 01/07/25 06:00 latanoprost 0.005 % eye drops 1 drp OPL HS 09/30/21 06/18/25 01/07/25 21:00 cetirizine 10 mg capsule (Zyrtec) 10 mg PO DAILY PRN Allergy Symptoms 07/09/22 06/18/25 01/04/25 coenzyme Q10 100 mg capsule (Co 200 mg PO QAM 07/09/22 06/18/25 01/07/25 11:00 Q-10) isosorbide mononitrate 30 mg 30 mg PO QAM 07/09/22 06/18/25 01/08/25 06:00 tablet,extended release 24 hr ketoconazole 2 % shampoo 1 applic topical UD PRN SHAMPOO 07/09/22 06/18/25 09/22/23 nitroglycerin 0.4 mg sublingual 0.4 mg sublingual UD PRN Chest Pain 07/09/22 06/18/25 09/22/23 tablet (Nitrostat) dorzolamide 2 % eye drops 1 drp OPL BID 01/04/23 06/18/25 01/08/25 06:00 nifedipine 90 mg tablet,extended 90 mg PO QDL 08/03/23 06/18/25 01/07/25 16:00 release rosuvastatin 20 mg tablet (Crestor) 20 mg PO QPM 08/03/23 06/18/25 01/07/25 21:00 ibuprofen 200 mg tablet (Advil) 600 mg (3 x 200 mg) PO QID PRN 09/23/23 06/18/25 Unknown fever or pain #30 tabs betamethasone dipropionate 0.05 % 1 applic topical BID PRN Skin 04/18/24 06/18/25 Unknown topical cream Irritation clobetasol 0.05 % topical cream 1 applic topical BID PRN Rash 04/18/24 06/18/25 Unknown diphenhydramine 25 1 tab PO HS PRN Insomnia 08/03/0606/18/25 01/07/25 21:30 mg-acetaminophen 500 mg tablet (Tylenol PM Extra Strength) furosemide 20 mg tablet (Lasix) 20 mg PO QAM PRN Edema 04/18/24 06/18/25 Unknown mupirocin 2 % topical ointment 1 applic topical BID PRN . 04/18/24 06/18/25 Unknown (Centany) sulfasalazine 500 mg tablet 1,500 mg PO BID 04/18/24 06/18/25 01/07/25 21:00 folic acid 1 mg tablet 1 mg PO QPM #90 tabs 05/22/24 06/18/25 01/06/25 tamsulosin 0.4 mg capsule 0.4 mg PO QAM #90 caps 05/29/25 06/18/25 Unknown cyanocobalamin (vitamin B-12) 2,000 mcg PO QAM 06/18/25 06/18/25 Unknown 2,000 mcg tablet omega-3 fatty acids 1,000 mg PO QAM 06/18/25 06/18/25 Unknown Past Medical History Medical History (Updated 06/22/25 @ 13:02 by Olivia Landon PA-C) Actinic keratosis Anemia Arthropathy of lumbar facet joint Atherosclerosis To carotid bulbs (<50% stenosis) per 05/09/25 neck CTA BPH NOS w ur obs/LUTS Cirrhosis of liver LFTS WNL 12/2024 Coronary arteriosclerosis CAD s/p CABG x 3 2007 Crohns disease Glaucoma History of atrial fibrillation dx many years ago, cardioversion x 2, controlled with medication. follows with [facility]/Dr. Coleman no AC - only ASA per medication list review no atrial fibrillation history noted in cardio records History of basal cell carcinoma (BCC) History of colon cancer (02/2023) per chart review, splenic flexure mass: adenocarcinoma s/p surgery 02/2023 History of herniated intervertebral disc History of Mohs micrographic surgery for skin cancer nose area Hx of non-ST elevation myocardial infarction (NSTEMI) (2021) 06/2022: pt admitted and had troponin elevation; per chart review, likely demand ischemia 2/2 SVT episode Hx of renal calculi passed on own Hx of supraventricular tachycardia Admitted to [facility] 07/09/22 for SVT's - "Given a medication to slow down my heart rate and get it beating normal again." - [facility] Dr Coleman Hypercholesterolemia Hypertension Left leg claudication Reason for upcoming procedure Low sodium levels followed by Dr. Cortes Mitral regurgitation moderate per 08/2024 ECHO Osteoarthritis PAD (peripheral artery disease) "Had ballooning with Dr Mon" - yearly ultrasounds to monitor [facility] Peripheral vascular disease "HAD BALLOONING W/DR. MON, [facility] ABOUT 2.5-3 YEARS AGO" > left leg Pulmonary HTN Mildly elevated PASP (PASP 40mmHg) per 08/2024 ECHO Rotator cuff tear right and left Shoulder impingement both shoulders Spinal stenosis Subclavian artery disease High-grade stenosis at the origin of the right subclavian artery per 05/09/25 neck CTA Tricuspid regurgitation mild-mod per 08/2024 ECHO Vertebral artery obstruction per 04/2025 imaging: <50% B/L carotid artery stenosis, high-grade stenosis at the origin of the right subclavian artery, right vertebral artery appears to be developmentally diminutive and demonstrates multifocal stenoses. Past Family History Family History Father , 62yo Colon cancer Mother , 85yo No problems noted. Sister Alzheimer disease Sister No problems noted. Sister No problems noted. Sister No problems noted. Son No problems noted. Son No problems noted. Son No problems noted. Daughter No problems noted. Other No family history of adverse response to anesthesia Past Surgical History Surgical History H/O angioplasty left leg, dr. mon History of back surgery x2 L3 L4 Laminectomy History of bowel resection (03/03/23) r/[place] (splenic flexure mass) [place] [facility] [place], lymph nodes were clear per pt History of cardiac cath (2007) 2005 > no stents > prior to bypass History of cardioversion x 2 30 years ago, most recent was 2022 History of carpal tunnel release Bilateral History of cataract surgery bilateral with XEN stent to right History of coronary artery bypass graft (2007) Triple (VILLAR-LAD, SVG-marginal branch, SVG-PDA > 2008 > [facility] > [facility] Dr Coleman History of esophagogastroduodenoscopy (EGD) History of surgery Bilateral L5-S1 medial branch block History of tonsillectomy Hx of appendectomy Hx of colonoscopy with polypectomy Hx of hernia repair multiple>last one left inguinal & umbilical 12/2024 @[place] with Dr. Alan Social History Smoking Status: Former smoker tobacco type: cigarettes Do You Dip or Chew Tobacco: No Smoking End Date: quit 35+ years ago Hx Alcohol Use: No Alcohol type: beer alcohol intake frequency: holidays/special occasions only substance use type: does not use Lab Results Anesthesia Preop Results Results Anesthesia Widget: WBC 4.92 K/ul (4.8-10.8) 06/19/25 Hgb 10.5 g/dl (14.0-18.0) L 06/19/25 Hct 31.7 % (42.0-52.0) L 06/19/25 Plt 152 K/uL (130-400) 06/19/25 Na 132 mmol/L (136-145) L 06/19/25 K 4.5 mmol/L (3.5-5.1) 06/19/25 Cl 99 mmol/L (98-107) 06/19/25 CO2 26 mmol/L (21-32) 06/19/25 BUN 17 mg/dl (6-23) 06/19/25 Creat 1.13 mg/dl (0.6-1.4) 06/19/25 Glucose Level 83 mg/dl (70-99(Fasting)) 06/19/25 Blood Type O Positive 06/19/25 Antibody Screen NEGATIVE 06/19/25 Testing Electrocardiogram Date: 01/31/25 SR with occ PVCs at 60bpm Septal infarct, age undetermined When compared to EKG from January 02, 2025- PVCs are now present, septal CT is similar to EKG from 01/15/2023 Echocardiogram Date: 08/30/24 Normal LV size and systolic function with no RWMA. EF 65% mild cLVH Grade II DD with elevated LA pressure Mildly dilated RV with normal systolic function Moderately dilated LA Mod MR Mild-Mod TR Mildly elevated PASP (PASP 40mmHg) Compared to 04/2022, the IWMA is not present. Otherwise the study is minimally changed with improved PA pressures and slightly worse MR. Other Testing Neck CTA 05/09/25= Prominent atherosclerosis of the carotid bulbs causing less than 50% stenosis of the internal carotid arteries. High-grade stenosis at the origin of the right subclavian artery. The right vertebral artery appears to be developmentally diminutive and demonstrates multifocal stenoses. Chest CT 04/09/25= There is no evidence of intrathoracic metastatic disease. No significant change from 10/19/2024. Cardiomegaly and emphysema. There is no airspace consolidation or pleural effusion. CTA of Abdomen/Pelvis with bilateral LE runoff 04/09/25= Postsurgical change is noted in the colon with no evidence of intra-abdominal metastatic disease. Cardiomegaly and emphysema. Advanced atherosclerotic vascular disease. The abdominal aorta is patent. There is high-grade stenosis with near complete occlusion seen at the origin of both the celiac trunk and the superior mesenteric artery. Collateralization between these 2 vessels indicates chronicity. There is also high-grade stenosis at the origin of the inferior mesenteric artery. There is high-grade stenosis at the origin of both right renal arteries, with moderate to high-grade stenosis of the proximal left renal artery. There is high-grade stenosis at the origin of both internal iliac arteries. Advanced peripheral vascular disease in both legs, right leg greater than left. There is asymmetric soft tissue edema in both legs, right side greater than left. LE Duplex B/L 01/02/25: R Le. 50-74% stenosis of the common femoral artery. Mobile plaque seen in the LEATHER ROLLER. 2. <50% stenosis of the proximal profunda femoris artery 3. 50-74% stenosis of the distal superficial femoral artery 4. 50-74% stenosis of the distal popliteal artery 5. Occlusion of the distal peroneal artery 6. Occlusion of the proximal anterior tibial artery 7. Heavily calcified posterior tibial artery without stenosis or occlusion identified 8. Unable to obtain the right ankle/brachial index due to non-compressible tibial arteries 9. Right digit pressure is 100mmHg. Right digit/brachial index is 0.56 L Le. 75-99% stenosis of the distal external iliac artery 2. No hemodynamically significant stenosis in the common femoral, proximal profunda femoris or superficial femoral arteries 3. 50-74% stenosis of the proximal popliteal artery 4. 50-74% stenosis of the distal popliteal artery 5. Heavily calcified anterior tibial, posterior tibial and peroneal arteries without stenosis or occlusion identified 6. Unable to obtain the left ankle/brachial index due to non-compressible tibial arteries 7. Left digit pressure is 104mmHg. Left digit/brachial index is 0.58 Compared to the previous study performed 03/01/2023, there is now a 50-74% stenosis of the right LEATHER ROLLER with mobile plaque visualized. The right DBI decreased from 0.91 to 0.58.
--- NOTE | 2025-06-25 15:52 | History & Physical Report ---
Date of Service June 25, 2025 Assessment & Plan (1) PAD (peripheral artery disease): Plan: Patient admitted for a left femoral artery endarterectomy and popliteal artery intervention. I have discussed the risks options and benefits of the procedure with the patie nt. The patient understands the risks options and benefits and agrees to the procedure. History of Present Illness Chief Complaint: Left common femoral and popliteal artery stenosis Primary Care Provider: Ernesto Cash MD Mr. Bernal is an elderly male who presents to vascular surgery clinic for follow- up visit to discuss CTA neck findings. Patient continues to deny any symptoms of cerebrovascular insufficiency, including amaurosis, unilateral extremity weakness numbness or tingling, difficulty speaking or swallowing, facial droop, sudden onset confusion. CTA was recommended due to severe calcification of his arteries which rendered the ultrasound difficult to evaluate. Patient continues to complain of lower extremity claudication symptoms, primarily in the left leg. He describes it as a tired feeling and an ache which begins in his thigh and extends down into his calf muscles as well. He states this occurs after walking about 20 yards and distance. He states he has to rest for up to 5 minutes or so before he is able to ambulate a similar distance again. He denies rest pain or nonhealing wounds or ulcerations in either lower extremity. He does state to having some chronic numbness in his right lower leg which extends into his foot and toes, however, this has been present since he "ruptured" a disc in his back many years ago. His CTA of the neck demonstrates less than 50% stenosis of his bilateral ICAs, and again redemonstrates the near occlusion versus occlusion of his right subclavian artery. Review of his CTA abdomen pelvis with runoff performed about a month ago at [facility] demonstrates a left common femoral artery severe stenosis versus occlusion, as well as a stenosis of his left distal popliteal artery. Allergies Allergy/AdvReac Type Severity Reaction Status Date / Time No Known Allergies Allergy Unknown Verified 06/26/25 06:17 Home Medications Medication Instructions Recorded Confirmed Type aspirin 81 mg tablet,delayed 81 mg PO QAM 06/27/19 06/26/25 History release lisinopril 40 mg tablet 40 mg PO QAM 06/27/19 06/26/25 History multivitamin 1 tab PO QAM 06/27/19 06/26/25 History spironolactone 25 mg tablet 25 mg PO QPM 06/27/19 06/26/25 History (Aldactone) cilostazol 100 mg tablet 100 mg PO BID 09/08/19 06/26/25 History metoprolol tartrate 50 mg tablet 50 mg PO BID 09/08/19 06/26/25 History (Lopressor) cholecalciferol (vitamin D3) 50 2,000 unit PO QPM 10/20/19 06/26/25 History mcg (2,000 unit) tablet (Vitamin D3) timolol maleate 0.5 % eye drops 1 drp OPL QAM 10/20/19 06/26/25 History latanoprost 0.005 % eye drops 1 drp OPL HS 09/30/21 06/26/25 History cetirizine 10 mg capsule (Zyrtec) 10 mg PO DAILY PRN Allergy Symptoms 07/09/22 06/26/25 History coenzyme Q10 100 mg capsule (Co 200 mg PO QAM 07/09/22 06/26/25 History Q-10) isosorbide mononitrate 30 mg 30 mg PO QAM 07/09/22 06/26/25 History tablet,extended release 24 hr ketoconazole 2 % shampoo 1 applic topical UD PRN SHAMPOO 07/09/22 06/26/25 History nitroglycerin 0.4 mg sublingual 0.4 mg sublingual UD PRN Chest Pain 07/09/22 06/26/25 History tablet (Nitrostat) dorzolamide 2 % eye drops 1 drp OPL BID 01/04/23 06/26/25 History nifedipine 90 mg tablet,extended 90 mg PO QDL 08/03/23 06/26/25 History release rosuvastatin 20 mg tablet (Crestor) 20 mg PO QPM 08/03/23 06/26/25 History ibuprofen 200 mg tablet (Advil) 600 mg (3 x 200 mg) PO QID PRN 09/23/23 06/26/25 Rx fever or pain #30 tabs betamethasone dipropionate 0.05 % 1 applic topical BID PRN Skin 04/18/24 06/26/25 History topical cream Irritation clobetasol 0.05 % topical cream 1 applic topical BID PRN Rash 04/18/24 06/26/25 History diphenhydramine 25 1 tab PO HS PRN Insomnia 04/18/24 06/26/25 History mg-acetaminophen 500 mg tablet (Tylenol PM Extra Strength) furosemide 20 mg tablet (Lasix) 20 mg PO QAM PRN Edema 04/18/24 06/26/25 History mupirocin 2 % topical ointment 1 applic topical BID PRN . 04/18/24 06/26/25 History (Centany) sulfasalazine 500 mg tablet 1,500 mg PO BID 04/18/24 06/26/25 History folic acid 1 mg tablet 1 mg PO QPM #90 tabs 05/22/24 06/26/25 Rx tamsulosin 0.4 mg capsule 0.4 mg PO QAM #90 caps 05/29/25 06/26/25 Rx cyanocobalamin (vitamin B-12) 2,000 mcg PO QAM 06/18/25 06/26/25 History 2,000 mcg tablet omega-3 fatty acids 1,000 mg PO QAM 06/18/25 06/26/25 History Past Med/Surg History Problem List PAD (peripheral artery disease) "Had ballooning with Dr Mon" - yearly ultrasounds to monitor [facility] Incarcerated left inguinal hernia (Acute) Basal cell carcinoma of nose (Chronic) Shave biopsy on 09/22/23 Carpal tunnel syndrome Colon cancer BPH NOS w ur obs/LUTS Encounter for pre-operative examination Elevated troponin 06/2022; per chart review, likely demand ischemia 2/2 SVT episode Heart palpitations (Acute) History of laparoscopic appendectomy (09/30/21) Laparoscopic Appendectomy - Garrick Siegel DO, FACS 09/30/2021 Hyponatremia Hx of colonic polyps Left knee DJD Medical History Low sodium levels followed by Dr. Cortes Tricuspid regurgitation mild-mod per 08/2024 ECHO Pulmonary HTN Mildly elevated PASP (PASP 40mmHg) per 08/2024 ECHO Mitral regurgitation moderate per 08/2024 ECHO Peripheral vascular disease "HAD BALLOONING W/DR. MON, [facility] ABOUT 2.5-3 YEARS AGO" > left leg Crohns disease Hx of non-ST elevation myocardial infarction (NSTEMI) (2021) 06/2022: pt admitted and had troponin elevation; per chart review, likely demand ischemia 2/2 SVT episode Hypertension Hx of renal calculi passed on own History of colon cancer (02/2023) per chart review, splenic flexure mass: adenocarcinoma s/p surgery 02/2023 BPH NOS w ur obs/LUTS History of basal cell carcinoma (BCC) History of atrial fibrillation dx many years ago, cardioversion x 2, controlled with medication. follows with [facility]/Dr. Coleman no AC - only ASA per medication list review no atrial fibrillation history noted in cardio records History of Mohs micrographic surgery for skin cancer nose area Vertebral artery obstruction per 04/2025 imaging: <50% B/L carotid artery stenosis, high-grade stenosis at the origin of the right subclavian artery, right vertebral artery appears to be developmentally diminutive and demonstrates multifocal stenoses. Subclavian artery disease High-grade stenosis at the origin of the right subclavian artery per 05/09/25 neck CTA Shoulder impingement both shoulders Rotator cuff tear right and left PAD (peripheral artery disease) "Had ballooning with Dr Mon" - yearly ultrasounds to monitor [facility] Left leg claudication Reason for upcoming procedure Hypercholesterolemia History of herniated intervertebral disc Coronary arteriosclerosis CAD s/p CABG x 3 2007 Cirrhosis of liver LFTS WNL 12/2024 Atherosclerosis To carotid bulbs (<50% stenosis) per 05/09/25 neck CTA Arthropathy of lumbar facet joint Anemia Actinic keratosis Hx of supraventricular tachycardia Admitted to [facility] 07/09/22 for SVT's - "Given a medication to slow down my heart rate and get it beating normal again." - [facility] Dr Coleman Spinal stenosis Osteoarthritis Glaucoma Surgical History History of cardioversion x 2 30 years ago, most recent was 2022 History of esophagogastroduodenoscopy (EGD) Hx of colonoscopy with polypectomy H/O angioplasty left leg, dr. mon History of surgery Bilateral L5-S1 medial branch block Hx of appendectomy History of cataract surgery bilateral with XEN stent to right History of carpal tunnel release Bilateral History of bowel resection (03/03/23) r/t tumor (splenic flexure mass) at [facility] [place], no chemo, lymph nodes were clear per pt History of back surgery x2 L3 L4 Laminectomy Hx of hernia repair multiple>last one left inguinal & umbilical 12/2024 @[place] with Dr. Alan History of tonsillectomy History of cardiac cath (2007) 2006 > no stents > prior to bypass History of coronary artery bypass graft (2007) Triple (VILLAR-LAD, SVG-marginal branch, SVG-PDA > 2008 > [facility] > [facility] Dr Coleman Family History Father , 62yo Colon cancer Mother , 85yo No problems noted. Sister Alzheimer disease Sister No problems noted. Sister No problems noted. Sister No problems noted. Son No problems noted. Son No problems noted. Son No problems noted. Daughter No problems noted. Other No family history of adverse response to anesthesia Social History Smoking Status: Former smoker Tobacco Type: Cigarettes Smoking End Date: quit 35+ years ago; Second Hand Exposure: No; Do You Dip or Chew Tobacco: No; Hx Alcohol Use: No Preferred Language: Sudanese Communication Ability: Effective Visual Impairment: No Limitations Hearing Ability: Normal Central Melt Specialist Required: No Beliefs That Will Affect Care: None marital status: Current Living Situation: Spouse current occupational status: retired current occupation: [employer] programmer How many Children do You have: 4 Feels Safe at Home: Yes Safety Concerns: Feels Safe At This Time Assistive Devices: None Review of Systems All systems reviewed & are unremarkable except as noted in HPI & below Physical Exam Physical Exam: Constitutional: In general patient is a healthy-appearing well-nourished well- developed elderly male in no distress. He is alert and oriented without a focal deficits. His carotids do not demonstrate a bruit. His heart is regular, his lungs are decreased significantly but clear. His radial pulse on the right is +1, his radial pulse on the left is +3. His left femoral pulse is nonpalpable. His left DP and PT is nonpalpable. His right femoral pulse is +2. Right DP and PT is +1. Brisk capillary refill and no sign of ischemia
[~2025-06-26 05:40] MED LIST changes: -ASPCH81X PO; -ATOR-26 PO; -ATROPINE SULFATE 0.1 MG/ML 5ML SYR IV PRN; -AZAT50TA25 PO; -BUPIVACAINE/EPINEPHRINE 0.5% MPF 1:200,000 30 ML VIAL ONE; -CEFAZOLIN 2000MG IV PUSH 15 ML IV SCH; -EpHEDrine SULFATE 50MG/5ML SYR ONE; -EpHEDrine SULFATE INJ 50 MG/ML AMP IV PRN; -FENTANYL CITRATE INJ 50 MCG/1 ML 2 ML VIAL IV PRN; -FENTANYL CITRATE INJ 50 MCG/1 ML 2 ML VIAL ONE; -HYDROmorphone INJ 1 MG/ML SYR IV PRN; -LACTATED RINGER'S 1000ML 1,000 ML IV SCH; -LIDOCAINE HCL 2% 2 ML VIAL (20MG/ML) ONE; -LIDOCAINE/EPINEPHRINE 1% 20 ML VIAL ONE; -LISI1TAB3 PO; -METO50TA16 PO; -MULT-506 PO; -MoRPHine SULFATE 2 MG/ML CARP IV PRN; -NIFE60TA57 PO; -OMEG10007 PO; -ONDANSETRON INJ 2 MG/ML 2 ML VIAL IV PRN; -OXYCODONE/ACETAMINOPHEN 5-325 TAB PO PRN; -PROPOFOL IV EMULSION 10 MG/ML 20 ML VIAL IV ONE; +SODIUM CHLORIDE 0.9% 100 ML IV PRN; -SODIUM CHLORIDE 0.9% 1000ML 1,000 ML IV SCH; -SULF500T36 PO; -VITAMIN B12 PO; -VITAMIN D3 PO
[2025-06-26] MEDS: SODIUM CHLORIDE 0.9% 1,000 ML IV SCH (06:04)
[2025-06-26 06:12] LABS: Anion Gap 7.0 (3-11); Blood Urea Nitrogen 17.0 mg/dl (6-23); Calcium 9.4 mg/dl (8.6-10.3); Carbon Dioxide 24.0 mmol/L (21-32); Chloride 102.0 mmol/L (98-107); Creatinine Clr Calc Pharmacy 54.8 ml/min; Glucose 100.0 mg/dl (70-99(Fasting)); Potassium 4.8 mmol/L (3.5-5.1); Sodium 133.0 mmol/L (136-145)
[2025-06-26] MEDS ORDERED: DEXAMETHASONE SOD INJ 4 MG/ML VIAL ONE (06:54)
[2025-06-26] MEDS ORDERED: PROPOFOL IV EMULSION 10 MG/ML 20 ML VIAL IV ONE (06:54)
[2025-06-26] MEDS ORDERED: ONDANSETRON INJ 2 MG/ML 2 ML VIAL ONE (06:54)
[2025-06-26] MEDS ORDERED: LIDOCAINE 2% 2 ML VIAL/AMP(20MG/ML) INFIL ONE (06:54)
[2025-06-26] MEDS ORDERED: GLYCOPYRROLATE 0.2 MG/ML VIAL ONE (06:54)
[2025-06-26] MEDS ORDERED: SUGAMMADEX SODIUM 200 MG/2 ML VIAL IV ONE (06:55)
[2025-06-26] MEDS ORDERED: HEPARIN SOD (PORCINE) 1000 UNIT/ML ONE (06:55)
[2025-06-26] MEDS ORDERED: MIDAZOLAM HCL 1 MG/ML 2ML VIAL ONE (06:55)
[2025-06-26] MEDS ORDERED: ROCURONIUM BROMIDE 10 MG/ML 5 ML VIAL IV ONE ×2 (06:56→06:57)
[2025-06-26] MEDS ORDERED: PROTAMINE SULFATE 10 MG/ML 5 ML VIAL IV ONE (06:56)
--- NOTE | 2025-06-26 07:34 | History & Physical Bridge Note ---
Date of Service June 26, 2025 History & Physical Bridge Note I have examined the patient, reviewed the History & Physical and in the interval since the performance of the History & Physical I have noted the following changes of clinical significance: no changes noted
--- NOTE | 2025-06-26 07:51 | Anesthesiology Consultation ---
Date of Service June 26, 2025 Assessment & Plan Chart Review Chart Review: Acceptable Risk for Surgery Consults Requested none History Surgery Operation Date: 06/26/25 08:00 Proposed Procedures p Left Common Femoral Endarterectomy - Kel Herron MD s Left Leg Angiogram with Intervention - Kel Herron MD Height/Weight Height: 5 ft 10 in Weight: 77.5 kg Allergies Allergy/AdvReac Type Severity Reaction Status Date / Time No Known Allergies Allergy Unknown Verified 06/26/25 06:17 Medications Home Medications Medication Instructions Recorded Confirmed Last Taken aspirin 81 mg tablet,delayed 81 mg PO QAM 06/27/19 06/26/25 06/26/25 05:00 release lisinopril 40 mg tablet 40 mg PO QAM 06/27/19 06/26/25 06/26/25 05:00 multivitamin 1 tab PO QAM 06/27/19 06/26/25 06/23/25 12:00 spironolactone 25 mg tablet 25 mg PO QPM 06/27/19 06/26/25 06/25/25 23:00 (Aldactone) cilostazol 100 mg tablet 100 mg PO BID 09/08/19 06/26/25 06/25/25 08:00 metoprolol tartrate 50 mg tablet 50 mg PO BID 09/08/19 06/26/25 06/26/25 05:00 (Lopressor) cholecalciferol (vitamin D3) 50 2,000 unit PO QPM 10/20/19 06/26/25 06/25/25 12:00 mcg (2,000 unit) tablet (Vitamin D3) timolol maleate 0.5 % eye drops 1 drp OPL QAM 10/20/19 06/26/25 06/25/25 08:00 latanoprost 0.005 % eye drops 1 drp OPL HS 09/30/21 06/26/25 06/25/25 23:00 cetirizine 10 mg capsule (Zyrtec) 10 mg PO DAILY PRN Allergy Symptoms 07/09/22 06/26/25 06/25/25 08:00 coenzyme Q10 100 mg capsule (Co 200 mg PO QAM 07/09/22 06/26/25 06/23/25 12:00 Q-10) isosorbide mononitrate 30 mg 30 mg PO QAM 07/09/22 06/26/25 06/26/25 05:00 tablet,extended release 24 hr ketoconazole 2 % shampoo 1 applic topical UD PRN SHAMPOO 07/09/22 06/26/25 06/25/25 nitroglycerin 0.4 mg sublingual 0.4 mg sublingual UD PRN Chest Pain 07/09/22 06/26/25 09/22/23 tablet (Nitrostat) dorzolamide 2 % eye drops 1 drp OPL BID 01/04/23 06/26/25 06/26/25 05:00 nifedipine 90 mg tablet,extended 90 mg PO QDL 08/03/23 06/26/25 06/24/25 15:00 release rosuvastatin 20 mg tablet (Crestor) 20 mg PO QPM 08/03/23 06/26/25 06/25/25 23:00 ibuprofen 200 mg tablet (Advil) 600 mg (3 x 200 mg) PO QID PRN 09/23/23 06/26/25 Unknown fever or pain #30 tabs betamethasone dipropionate 0.05 % 1 applic topical BID PRN Skin 04/18/24 06/26/25 Unknown topical cream Irritation clobetasol 0.05 % topical cream 1 applic topical BID PRN Rash 04/18/24 06/26/25 Unknown diphenhydramine 25 1 tab PO HS PRN Insomnia 04/18/24 06/26/25 06/25/25 23:00 mg-acetaminophen 500 mg tablet (Tylenol PM Extra Strength) furosemide 20 mg tablet (Lasix) 20 mg PO QAM PRN Edema 04/18/24 06/26/25 06/24/25 11:00 mupirocin 2 % topical ointment 1 applic topical BID PRN . 04/18/24 06/26/25 Unknown (Centany) sulfasalazine 500 mg tablet 1,500 mg PO BID 04/18/24 06/26/25 06/26/25 05:00 1500 mg folic acid 1 mg tablet 1 mg PO QPM #90 tabs 05/22/24 06/26/25 06/25/25 12:00 tamsulosin 0.4 mg capsule 0.4 mg PO QAM #90 caps 05/29/25 06/26/25 06/26/25 05:00 cyanocobalamin (vitamin B-12) 2,000 mcg PO QAM 06/18/25 06/26/25 06/25/25 12:00 2,000 mcg tablet omega-3 fatty acids 1,000 mg PO QAM 06/18/25 06/26/25 06/23/25 Active Medications Generic Name Dose Route Start Last Admin Trade Name Chaiq PRN Reason Stop Dose Admin Sodium Chloride 1,000 mls @ 50 mls/hr 06/26/25 06:00 06/26/25 06:04 Nss IV 06/27/25 01:59 50 mls/hr .Q20H MICAH Administration NPO Date Last Intake of Fluids: 06/25/25 Time Last Intake of Fluids: 23:00 Last Intake of Fluids Comment: 0500 sip water for meds Date Last Intake of Solids: 06/25/25 Time Last Intake of Solids: 12:00 Past Medical History Medical History Low sodium levels followed by Dr. Cortes Tricuspid regurgitation mild-mod per 08/2024 ECHO Pulmonary HTN Mildly elevated PASP (PASP 40mmHg) per 08/2024 ECHO Mitral regurgitation moderate per 08/2024 ECHO Peripheral vascular disease "HAD BALLOONING W/DR. 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 follows with [facility]/Dr. Coleman no AC - only ASA per medication list review no atrial fibrillation history noted in cardio records History of Mohs micrographic surgery for skin cancer nose area Vertebral artery obstruction per 04/2025 imaging: <50% B/L carotid artery stenosis, high-grade stenosis at the origin of the right subclavian artery, right vertebral artery appears to be developmentally diminutive and demonstrates multifocal stenoses. Subclavian artery disease High-grade stenosis at the origin of the right subclavian artery per 05/09/25 neck CTA Shoulder impingement both shoulders Rotator cuff tear right and left PAD (peripheral artery disease) "Had ballooning with Dr Herron" - yearly ultrasounds to monitor [facility] Left leg claudication Reason for upcoming procedure Hypercholesterolemia History of herniated intervertebral disc Coronary arteriosclerosis CAD s/p CABG x 3 2007 Cirrhosis of liver LFTS WNL 12/2024 Atherosclerosis To carotid bulbs (<50% stenosis) per 05/09/25 neck CTA Arthropathy of lumbar facet joint Anemia Actinic keratosis Hx of supraventricular tachycardia Admitted to [facility] 07/09/22 for SVT's - "Given a medication to slow down my heart rate and get it beating normal again." - [facility] Dr Coleman Spinal stenosis Osteoarthritis Glaucoma Past Family History Family History Father , 62yo Colon cancer Mother , 85yo No problems noted. Sister Alzheimer disease Sister No problems noted. Sister No problems noted. Sister No problems noted. Son No problems noted. Son No problems noted. Son No problems noted. Daughter No problems noted. Other No family history of adverse response to anesthesia Past Surgical History Surgical History History of cardioversion x 2 30 years ago, most recent was 2022 History of esophagogastroduodenoscopy (EGD) Hx of colonoscopy with polypectomy H/O angioplasty left leg, dr. herron History of surgery Bilateral L5-S1 medial branch block Hx of appendectomy History of cataract surgery bilateral with XEN stent to right History of carpal tunnel release Bilateral History of bowel resection (03/03/23) r/t tumor (splenic flexure mass) at [facility] [place], no chemo, lymph nodes were clear per pt History of back surgery x2 L3 L4 Laminectomy Hx of hernia repair multiple>last one left inguinal & umbilical 12/2024 @[place] with Dr. Alan History of tonsillectomy History of cardiac cath (2007) 2006 > no stents > prior to bypass History of coronary artery bypass graft (2007) Triple (VILLAR-LAD, SVG-marginal branch, SVG-PDA > 2007 > [facility] > [facility] Dr Coleman Social History Smoking Status: Former smoker tobacco type: cigarettes Do You Dip or Chew Tobacco: No Smoking End Date: quit 35+ years ago Hx Alcohol Use: No Alcohol type: beer alcohol intake frequency: holidays/special occasions only substance use type: does not use Physical Exam Vital Signs Last Vital Signs Temp 36.8 C 06/26/25 06:05 Pulse 61 06/26/25 06:05 Resp 20 06/26/25 06:05 BP 162/74 H 06/26/25 06:05 Pulse Ox 96 06/26/25 06:05 O2 Del Method Room Air 06/26/25 06:05 Testing Laboratory Results 06/26/25 05:38 Blood Type O Positive 06/26/25 05:38 Antibody Screen NEGATIVE 06/26/25 05:38
[2025-06-26] MEDS ORDERED: PHENYLEPHRINE HCL 10 MG/ML VIAL ONE (08:23)
[2025-06-26] MEDS ORDERED: ePHEDrine sulfate 50 MG/5 ML SYR ONE (08:23)
[2025-06-26] MEDS ORDERED: PROMETHAZINE HCL 6.25 MG in SODIUM CHLORIDE 0.9% 50 ML IV PRN (09:04)
[2025-06-26] MEDS ORDERED: ATROPINE SULFATE 0.1 MG/ML 10ML SYR IV PRN (09:04)
[2025-06-26] MEDS ORDERED: HYDROmorphone INJ 1 MG/ML SYRINGE IV PRN (09:04)
[2025-06-26] MEDS ORDERED: ONDANSETRON INJ 2 MG/ML 2 ML VIAL IV PRN ×2 (09:04→11:33)
[2025-06-26] MEDS: GELATIN SPONGE SZ 100 ONE (09:48)
[2025-06-26] MEDS: THROMBIN FOR SOLN 20000 UNIT KIT ONE (09:49)
[2025-06-26] MEDS: VISIPAQUE IV ONE (09:52)
[2025-06-26] MEDS: HEPARIN (PORCINE) 1000 UNIT/ML 10 ML (CATH LAB USE ONLY) ONE (10:00)
[2025-06-26] MEDS: ceFAZolin 330 MG/ML 1 GM VIAL ONE (10:00)
--- NOTE | 2025-06-26 10:17 | Operative Report ---
Post Operative Report Pre & Post Diagnosis Operation Date: 06/26/25 08:00 Pre-Op Diagnosis: Left Common Femoral and Popliteal Artery Stenosis Post-Op Diagnosis: Left Common Femoral and Popliteal Artery Stenosis I identified the patient and participated in the time-out.: Yes Procedure Operation Date: 06/26/25 08:00 Actual Procedures p Left Common Femoral Endarterectomy; Left Leg Angiogram Intervention(Left) - Kel Mon MD Surgeon Kel Mon MD Senior Officer [place],PAC Estimated Blood Loss 50 Findings Consistent with Post-Op Diagnosis Specimens none Anesthesia Type General Complications none Disposition Accompanied Patient To Recovery: No Disposition: Recovery Room Indications This is an 85-year-old gentleman with severe claudication left lower extremity. He was found to have severely stenotic or occluded left common femoral artery. He was also found to have possibility of popliteal stenosis on ultrasound. Femoral endarterectomy was recommended as well as lower extremity arteriogram with possible intervention. I have discussed the risks options and benefits of the procedure with the patient. The patient understands the risks options and benefits and agrees to the procedure. Description of Procedure The patient was seen replacement position. General anesthesia was accomplished the groin was prepped and draped in a sterile manner. Timeout was performed the patient was identified. Incision was then made left groin. Incision was carried down through the femoral sheath. The common femoral artery was identified and inguinal ligament. It was dissected from the inguinal ligament and freed up down to just beyond the origin of superficial femoral artery where the artery was soft. The common femoral artery was rockhard and had no pulse. The profunda femoral artery was soft on exam. There was large sidebranches from the femoral artery which were sliding with silk sutures. The femoral artery just underneath the inguinal ligament did have a pulse that was soft. Patient was heparinized at that time. After active rotation was accomplished clamp was placed on the external iliac artery just above the inguinal ligament. The profundofemoral and superficial femoral artery were also clamped. Longitudinal arteriotomy was started on the common femoral artery and extended downward to beyond the plaque in the superficial femoral artery. More proximally the arteriotomy extended up to the right the inguinal ligament where the artery was patent then plaque appeared to then ended. Endarterectomy was started in appr opriate plane and a large amount of plaque which was occluding the common femoral artery was removed from the inguinal ligament down through the origin of the superficial femoral artery. The distal end breakoff point was then tacked down in 4 spots with 7-0 Prolene sutures. The proximal break-up point has no residual plaque present. Bovine patch was then brought to the operative field was trimmed to the appropriate shape and sewn in place with 5-0 Prolene sutures in usual vascular fashion. Prior to completing this closure backbleeding and forward bleeding was allowed to occur. The final few sutures were placed and securely tied. Clamps were removed. There were 2 areas of bleeding between sutures which were controlled with interrupted 5-0 Prolene's. Good Doppler signals were heard in the profunda superficial femoral and to the large branches coming off the common femoral arteries collaterals. Once adequate hemostasis was obtained the patch puncture was made into the patch and a 6 Pashto sheath was inserted. We then did arteriography which showed mild plaque lining the superficial popliteal and popliteal arteries. There is no definite significant narrowing noted. There was two-vessel runoff to the anterior tibial and posterior tibial arteries to the foot. The sheath was then pulled and the puncture site closed with 5-0 Prolene. Hemostasis was noted. Once hemostasis obtained was closed usual fashion using a running 2-0 Vicryl suture for the femoral sheath and a 3-0 Vicryl in the subcutaneous layer and miladys for the skin. A Prevena dressing was then placed on the wound.The patient left the operation room in satisfactory condition and tolerated the procedure well. All needle and sponge counts were correct at the end of the procedure. Lady Campbell Pac assisted due to lack of resident availability and was necessary for positioning, draping, retraction, wound closure deep layers, subcutaneous tissue, and skin closure and was necessary for assisting with the case. I attest to the content of the Intraoperative Record and any orders documented therein. Any exceptions are noted below.
[2025-06-26] MEDS ORDERED: NON-FORMULARY MEDICATION (Diphenhydramine-Acetaminophen [Tylenol Pm Extra Strength] 25-500 PO PRN (11:33)
[2025-06-26] MEDS ORDERED: FUROSEMIDE 20 MG TAB PO PRN (11:33)
[2025-06-26] MEDS ORDERED: MoRPHine SULFATE 4 MG/ML 1 ML CARP\\VIAL IV PRN (11:33)
[2025-06-26] MEDS ORDERED: MUPIROCIN 2% OINT 22 GM TUBE TOP PRN (11:33)
[2025-06-26] MEDS ORDERED: NITROGLYCERIN SL 0.4 MG/TAB TAB SL PRN (11:33)
[2025-06-26] MEDS ORDERED: CLOBETASOL PROPIONATE 0.05% CREAM 15 GM TUBE TOP PRN (11:33)
[2025-06-26] MEDS ORDERED: CETIRIZINE HCL 10 MG TABLET PO PRN (11:41)
[2025-06-26] MEDS ORDERED: ACETAMINOPHEN 500 MG TAB PO PRN (12:01)
[2025-06-26] MEDS ORDERED: diphenhydrAMINE Capsule 25 MG CAP PO PRN (12:01)
[2025-06-26] MEDS: LACTATED RINGER'S 1,000 ML IV SCH (12:24)
[2025-06-26] MEDS: NIFEdipine EXTENDED REL 30 MG TABCR PO SCH (12:26)
--- NOTE | 2025-06-26 12:48 | Anesthesiology Progress Note ---
Date of Service June 26, 2025 Anesthesia Post Procedure Vital Signs Vital Signs: Temp Pulse Pulse Pulse Resp BP BP 06/26/25 12:00 68 18 06/26/25 12:00 122/55 L 06/26/25 12:00 122/55 L 06/26/25 11:51 55 L 12 06/26/25 11:30 56 L 12 06/26/25 11:30 114/45 L 06/26/25 11:30 114/45 L 06/26/25 11:27 59 L 18 06/26/25 10:55 36.4 C L 62 14 112/50 L 06/26/25 10:45 65 14 129/51 L 06/26/25 10:35 68 12 126/60 06/26/25 10:25 36.6 C 81 14 129/66 06/26/25 06:05 36.8 C 61 20 162/74 H Pulse Ox O2 Del Method O2 Flow Rate 06/26/25 12:00 96 Room Air 06/26/25 12:00 06/26/25 12:00 06/26/25 11:51 94 06/26/25 11:30 94 06/26/25 11:30 06/26/25 11:30 06/26/25 11:27 94 06/26/25 10:55 94 Room Air 06/26/25 10:45 95 Room Air 06/26/25 10:35 98 Oxymask 4 06/26/25 10:25 96 Oxymask 4 06/26/25 06:05 96 Room Air Transfer of Care Handoff Completed per policy Notes Mental Status: alert / awake / arousable and participated in evaluation Patient Amnestic to Procedure: Yes Nausea / Vomiting: adequately controlled Pain: adequately controlled Airway Patency, RR, SpO2: stable & adequate BP & HR: stable & adequate Hydration State: stable & adequate Anesthetic Complications: no major complications apparent
--- NOTE | 2025-06-26 14:36 | Critical Care Consultation ---
Date of Consultation June 26, 2025 Assessment & Plan (1) Femoral artery stenosis, left: Plan Status post left common femoral endarterectomy by Dr. Herron on 06/26/2025. Patient tolerated procedure well. Palpable pulses of bilateral lower extremity with good capillary refill. Surgical site is clean dry and intact, dressing in place, no drainage, bruising or swelling. Frequent monitoring of vascular and neurologic checks of the lower extremities. Patient has been started on cefazolin postoperatively. On aspirin and cilostazol. Home medications including Lasix, Imdur, lisinopril, metoprolol, rosuvastatin, Aldactone, Flomax. Heart healthy diet. Dilaudid and oxycodone as needed for pain. Blood pressure is acceptable at this time, nicardipine is ordered if needed. Thank you for this consult. I will follow along with you and assist as needed. History of Present Illness Requesting Physician: Kel Hreron MD Attending Physician: Kel Herron MD History of Present Illness Patient is a 85-year-old male with a history of coronary artery disease status post CABG, peripheral arterial disease, diastolic heart failure and hypertension who is admitted to the ICU for monitoring after left common femoral endarterectomy by Dr. Herron on 06/26/2025. The patient tolerated the procedure well, sheath was pulled up on procedure termination with Prevena dressing applied to the left groin. When I examined the patient postoperatively he is resting comfortably in bed. Only minimal pain is appreciated in the left groin, no swelling or bruising is appreciated. The patient is not having any shortness of breath, dizziness or nausea. Pulses are palpated bilaterally, good capillary refill in both lower extremities. Sensation is intact. Medical/surgical history: Coronary artery disease status post CABG with VILLAR to LAD and SVG to marginal branch and to PDA (2007) Diastolic heart failure (grade 2 diastolic dysfunction) Mild pulmonary hypertension Aortic valve sclerosis Hypertension Hyperlipidemia Chron's disease History of tobacco use Bilateral carotid artery stenosis High-grade stenosis of the right subclavian Left common femoral artery severe stenosis Stenosis of left distal popliteal artery Chronic hyponatremia History of colon adenocarcinoma status post surgical excision with bowel anastomosis Laparoscopic left inguinal hernia repair with mesh Open umbilical hernia repair Allergies Allergy/AdvReac Type Severity Reaction Status Date / Time No Known Allergies Allergy Unknown Verified 06/26/25 06:17 Home Medications Medication Instructions Recorded Confirmed Type aspirin 81 mg tablet,delayed 81 mg PO QAM 06/27/19 06/26/25 History release lisinopril 40 mg tablet 40 mg PO QAM 06/27/19 06/26/25 History multivitamin 1 tab PO QAM 06/27/19 06/26/25 History spironolactone 25 mg tablet 25 mg PO QPM 06/27/19 06/26/25 History (Aldactone) cilostazol 100 mg tablet 100 mg PO BID 09/08/19 06/26/25 History metoprolol tartrate 50 mg tablet 50 mg PO BID 09/08/19 06/26/25 History (Lopressor) cholecalciferol (vitamin D3) 50 2,000 unit PO QPM 10/20/19 06/26/25 History mcg (2,000 unit) tablet (Vitamin D3) timolol maleate 0.5 % eye drops 1 drp OPL QAM 10/20/19 06/26/25 History latanoprost 0.005 % eye drops 1 drp OPL HS 09/30/21 06/26/25 History cetirizine 10 mg capsule (Zyrtec) 10 mg PO DAILY PRN Allergy Symptoms 07/09/22 06/26/25 History coenzyme Q10 100 mg capsule (Co 200 mg PO QAM 07/09/22 06/26/25 History Q-10) isosorbide mononitrate 30 mg 30 mg PO QAM 07/09/22 06/26/25 History tablet,extended release 24 hr ketoconazole 2 % shampoo 1 applic topical UD PRN SHAMPOO 07/09/22 06/26/25 History nitroglycerin 0.4 mg sublingual 0.4 mg sublingual UD PRN Chest Pain 07/09/22 History tablet (Nitrostat) dorzolamide 2 % eye drops 1 drp OPL BID 01/04/23 06/26/25 History nifedipine 90 mg tablet,extended 90 mg PO QDL 08/03/23 06/26/25 History release rosuvastatin 20 mg tablet (Crestor) 20 mg PO QPM 08/03/23 06/26/25 History ibuprofen 200 mg tablet (Advil) 600 mg (3 x 200 mg) PO QID PRN 09/23/23 06/26/25 Rx fever or pain #30 tabs betamethasone dipropionate 0.05 % 1 applic topical BID PRN Skin 04/18/24 06/26/25 History topical cream Irritation clobetasol 0.05 % topical cream 1 applic topical BID PRN Rash 04/18/24 06/26/25 History diphenhydramine 25 1 tab PO HS PRN Insomnia 04/18/24 06/26/25 History mg-acetaminophen 500 mg tablet (Tylenol PM Extra Strength) furosemide 20 mg tablet (Lasix) 20 mg PO QAM PRN Edema 04/18/24 06/26/25 History mupirocin 2 % topical ointment 1 applic topical BID PRN . 04/18/24 06/26/25 History (Centany) sulfasalazine 500 mg tablet 1,500 mg PO BID 04/18/24 06/26/25 History folic acid 1 mg tablet 1 mg PO QPM #90 tabs 05/22/24 06/26/25 Rx tamsulosin 0.4 mg capsule 0.4 mg PO QAM #90 caps 05/29/25 06/26/25 Rx cyanocobalamin (vitamin B-12) 2,000 mcg PO QAM 06/18/25 06/26/25 History 2,000 mcg tablet omega-3 fatty acids 1,000 mg PO QAM 06/18/25 06/26/25 History Patient History Medical History Low sodium levels followed by Dr. Cortes Tricuspid regurgitation mild-mod per 08/2024 ECHO Pulmonary HTN Mildly elevated PASP (PASP 40mmHg) per 08/2024 ECHO Mitral regurgitation moderate per 08/2024 ECHO Peripheral vascular disease "HAD BALLOONING W/DR. HERRON, [facility] ABOUT 2.5-3 YEARS AGO" > left leg Crohns disease Hx of non-ST elevation myocardial infarction (NSTEMI) (2021) 06/2022: pt admitted and had troponin elevation; per chart review, likely demand ischemia 2/2 SVT episode Hypertension Hx of renal calculi passed on own History of colon cancer (02/2023) per chart review, splenic flexure mass: adenocarcinoma s/p surgery 02/2023 BPH NOS w ur obs/LUTS History of basal cell carcinoma (BCC) History of atrial fibrillation dx many years ago, cardioversion x 2, controlled with medication. follows with [facility]/Dr. Coleman no AC - only ASA per medication list review no atrial fibrillation history noted in cardio records History of Mohs micrographic surgery for skin cancer nose area Vertebral artery obstruction per 04/2025 imaging: <50% B/L carotid artery stenosis, high-grade stenosis at the origin of the right subclavian artery, right vertebral artery appears to be developmentally diminutive and demonstrates multifocal stenoses. Subclavian artery disease High-grade stenosis at the origin of the right subclavian artery per 05/09/25 neck CTA Shoulder impingement both shoulders Rotator cuff tear right and left Left leg claudication Reason for upcoming procedure Hypercholesterolemia History of herniated intervertebral disc Coronary arteriosclerosis CAD s/p CABG x 3 2007 Cirrhosis of liver LFTS WNL 12/2024 Atherosclerosis To carotid bulbs (<50% stenosis) per 05/09/25 neck CTA Arthropathy of lumbar facet joint Anemia Actinic keratosis Hx of supraventricular tachycardia Admitted to [facility] 07/09/22 for SVT's - "Given a medication to slow down my heart rate and get it beating normal again." - [facility] Dr Coleman Spinal stenosis Osteoarthritis Glaucoma Surgical History History of cardioversion x 2 30 years ago, most recent was 2022 History of esophagogastroduodenoscopy (EGD) Hx of colonoscopy with polypectomy H/O angioplasty left leg, dr. herron History of surgery Bilateral L5-S1 medial branch block Hx of appendectomy History of cataract surgery bilateral with XEN stent to right History of carpal tunnel release Bilateral History of bowel resection (03/03/23) r/t tumor (splenic flexure mass) at [facility] [place], no chemo, lymph nodes were clear per pt History of back surgery x2 L3 L4 Laminectomy Hx of hernia repair multiple>last one left inguinal & umbilical 12/2024 @[place] with Dr. Alan History of tonsillectomy History of cardiac cath (2007) 2005 > no stents > prior to bypass History of coronary artery bypass graft (2007) Triple (VILLAR-LAD, SVG-marginal branch, SVG-PDA > 2008 > [facility] Isaak > [facility] Dr Coleman Family History Father , 62yo Colon cancer Mother , 85yo No problems noted. Sister Alzheimer disease Sister No problems noted. Sister No problems noted. Sister No problems noted. Son No problems noted. Son No problems noted. Son No problems noted. Daughter No problems noted. 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 Physical Exam Physical Exam: Physical examination: General: Well-appearing, well-nourished and not in acute distress. HEENT: Normocephalic, atraumatic. Extraocular movements intact. Sclera are nonicteric. No JVD appreciated. Skin: Warm and dry. No rashes appreciated. No jaundice appreciated. Cardiovascular: Sinus bradycardia, no murmurs appreciated on my exam. No signif icant lower extremity edema. Pulses palpable of bilateral feet with good capillary refill. Dressing in place in left groin. No swelling or bruising appreciated. Lungs: Clear bilaterally, no wheezing appreciated. No crackles. Nontachypneic. Resting comfortably on room air. Abdomen: Nondistended, nontender to palpation. Musculoskeletal: Normal muscle mass and tone. No gross joint deformity ab normalities. No effusions appreciated. Neurologic: Awake and alert, oriented. CN II through XII are grossly intact. Speech is fluent. Nonfocal exam. Sensation intact in lower extremities. Psychiatric: Appropriate cooperative during my exam. Results & Data Results & Data Vital Signs (Past 12 Hours) Vital Signs Temp Pulse Pulse Pulse Resp BP BP 06/26/25 12:00 68 18 06/26/25 12:00 122/55 L 06/26/25 12:00 122/55 L 06/26/25 11:51 55 L 12 06/26/25 11:30 56 L 12 06/26/25 11:30 114/45 L 06/26/25 11:30 114/45 L 06/26/25 11:27 59 L 18 06/26/25 10:55 36.4 C L 62 14 112/50 L 06/26/25 10:45 65 14 129/51 L 06/26/25 10:35 68 12 126/60 06/26/25 10:25 36.6 C 81 14 129/66 06/26/25 06:05 36.8 C 61 20 162/74 H Pulse Ox O2 Del Method O2 Flow Rate 06/26/25 12:00 96 Room Air 06/26/25 12:00 06/26/25 12:00 06/26/25 11:51 94 06/26/25 11:30 94 06/26/25 11:30 06/26/25 11:30 06/26/25 11:27 94 06/26/25 10:55 94 Room Air 06/26/25 10:45 95 Room Air 06/26/25 10:35 98 Oxymask 4 06/26/25 10:25 96 Oxymask 4 06/26/25 06:05 96 Room Air Coding Level of Care Code 99532 IN/OBS CONSULT LVL 2,35M Diagnoses Femoral artery stenosis, left I70.202
[2025-06-26] MEDS: SPIRONOLACTONE 25 MG TAB PO SCH (21:11)
[2025-06-26] MEDS: DORZOLAMIDE HCL 2% OPH SOLN 10 ML BTL OPL SCH (21:11)
[2025-06-26] MEDS: CHOLECALCIFEROL 25 MCG (1000 UNITS) TAB PO SCH (21:11)
[2025-06-26] MEDS: FOLIC ACID 1 MG TAB PO SCH (21:12)
[2025-06-26] MEDS: ROSUVASTATIN CALCIUM 20 MG TAB PO SCH (21:12)
[2025-06-26] MEDS: METOPROLOL TARTRATE 50 MG TAB PO SCH (21:12)
[2025-06-26] MEDS: LATANOPROST 0.005% OP SOLN 2.5 ML BTL OPL SCH (21:36)
[2025-06-26] MEDS ORDERED: Nursing to Pharmacy Communication SCH (22:30)
[2025-06-26] MEDS ORDERED: CHLORASEPTIC (PHENOL) 1.4% SOLN 180 ML BTL MT PRN (23:01)
[2025-06-26] MEDS: COUGH DROP (SUGAR FREE) LOZ 24 LOZ/1 BOX BUCCAL PRN (23:20)
[2025-06-27 04:51] LABS: Hematocrit (blood only) 25.5 % (42.0-52.0); Hemoglobin 8.2 g/dl (14.0-18.0); Immature Granulocytes # (auto) 0.04 K/uL (0.01-0.20); Immature Granulocytes % (auto) 0.5 %; Mean Corpuscular Hemoglobin 32.8 pg (25.0-34.0); Mean Corpuscular Volume 102.0 fL (80.0-100.0); Platelet Count 150 K/uL (130-400); RDW Standard Deviation 47.4 fL (36.4-46.3); Red Blood Count 2.50 M/uL (4.70-6.10); White Blood Count 7.49 K/ul (4.8-10.8)
[2025-06-27 05:05] LABS: Anion Gap 4.0 (3-11); Blood Urea Nitrogen 16.0 mg/dl (6-23); Calcium 8.8 mg/dl (8.6-10.3); Carbon Dioxide 25.0 mmol/L (21-32); Chloride 102.0 mmol/L (98-107); Creatinine Clr Calc Pharmacy 52.1 ml/min; Glucose 120.0 mg/dl (70-99(Fasting)); Potassium 4.4 mmol/L (3.5-5.1); Sodium 131.0 mmol/L (136-145)
[2025-06-27] MEDS ORDERED: SODIUM CHLORIDE 0.9% 100 ML IV PRN (05:22)
--- NOTE | 2025-06-27 07:09 | Critical Care Progress Note ---
Date of Service June 27, 2025 Assessment & Plan (1) Femoral artery stenosis, left: (2) Acute blood loss anemia: Plan Status post left common femoral endarterectomy by Dr. Mon on 06/26/2025. Patient tolerated procedure well. Palpable pulses of bilateral lower extremity with good capillary refill. Surgical site is clean dry and intact, dressing in place, no drainage, bruising or swelling. Frequent monitoring of vascular and neurologic checks of the lower extremities. Patient has been started on cefazolin postoperatively. On aspirin and cilostazol. Home medications including Lasix, Imdur, lisinopril, metoprolol, rosuvastatin, Aldactone, Flomax. Heart healthy diet. Dilaudid and oxycodone as needed for pain. Blood pressure is acceptable at this time, nicardipine is ordered if needed. Did have an episode of dizziness when ambulating overnight, hemoglobin had dropp ed from 10-8, getting 1 unit of blood. Patient has since been able to ambulate without any symptoms. Feeling well today. Stable to be transferred out of the ICU. Can consider monitoring for 1 more night on the medical dsouza or discharge to home, will leave this to the discretion of the operating surgeon. The goodman for this consult. I will sign off. Please call with any questions. Admission and Anticipated Discharge Date Admission Date: June 26, 2025 Subjective Past 24-hour events: Patient underwent left common femoral artery endarterectomy by Dr. Mon yesterday. Overnight the patient was ambulating and became dizzy, had to be assisted back to bed. This morning his hemoglobin had dropped and he is receiving 1 unit of blood (went from 10-8) Was able to ambulate after this event and did not have any episodes of dizziness. Rounding: Feeling well today, no chest pain, dizziness or shortness of breath. Good sensation in his lower extremities without pain. Some mild pain in his left groin but otherwise no new back pain. Review of Systems Review of Systems: Negative except as in HPI. Physical Exam Physical Exam: Physical examination: General: Well-appearing, well-nourished and not in acute distress. HEENT: Normocephalic, atraumatic. Extraocular movements intact. Sclera are nonicteric. No JVD appreciated. Skin: Warm and dry. No rashes appreciated. No jaundice appreciated. Cardiovascular: Sinus bradycardia, no murmurs appreciated on my exam. No sign ificant lower extremity edema. Pulses palpable of bilateral feet with good capillary refill. Dressing in place in left groin. No swelling or bruising appreciated. Lungs: Clear bilaterally, no wheezing appreciated. No crackles. Nontachypneic. Resting comfortably on room air. Abdomen: Nondistended, nontender to palpation. Musculoskeletal: Normal muscle mass and tone. No gross joint deformity abnormalities. No effusions appreciated. Neurologic: Awake and alert, oriented. CN II through XII are grossly intact. Speech is fluent. Nonfocal exam. Sensation intact in lower extremities. Psychiatric: Appropriate cooperative during my exam. Results & Data Results & Data Vital Signs (Past 12 Hours) Vital Signs Temp Pulse Resp BP Pulse Ox O2 Del Method 06/27/25 06:45 128/52 L 06/27/25 06:44 63 14 06/27/25 06:30 121/49 L 06/27/25 06:30 121/49 L 06/27/25 06:29 36.6 C 62 15 118/48 L 93 06/27/25 06:20 63 14 06/27/25 06:15 118/48 L 06/27/25 06:15 118/48 L 06/27/25 06:15 118/48 L 06/27/25 06:15 118/48 L 06/27/25 06:14 36.6 C 62 15 118/48 L 93 06/27/25 06:11 62 17 06/27/25 06:02 64 13 06/27/25 06:00 110/46 L 06/27/25 05:56 109/45 L 06/27/25 05:56 36.6 C 64 15 109/45 L 93 06/27/25 05:53 62 14 06/27/25 05:45 116/48 L 06/27/25 05:45 116/48 L 06/27/25 05:32 63 18 06/27/25 05:30 114/53 L 06/27/25 05:30 114/53 L 06/27/25 05:20 64 16 06/27/25 05:16 105/47 L 06/27/25 05:16 105/47 L 06/27/25 05:11 65 16 06/27/25 05:08 70 23 06/27/25 05:05 90/47 L 06/27/25 04:41 81 25 H 06/27/25 04:17 67 20 06/27/25 04:00 124/51 L 06/27/25 04:00 36.9 C 15 93 Room Air 06/27/25 03:53 63 16 06/27/25 03:11 74 23 06/27/25 03:01 155/58 H 06/27/25 03:01 155/58 H 06/27/25 02:59 90 15 06/27/25 02:09 70 19 06/27/25 02:00 111/48 L 06/27/25 02:00 111/48 L 06/27/25 01:51 71 19 06/27/25 01:24 70 16 06/27/25 01:15 110/48 L 06/27/25 01:09 69 14 06/27/25 01:04 96/46 L 06/27/25 01:00 96/46 L 06/27/25 00:57 70 17 06/27/25 00:51 71 15 06/27/25 00:45 120/47 L 06/27/25 00:21 73 14 06/27/25 00:15 123/54 L 06/27/25 00:03 71 20 06/27/25 00:00 128/55 L 06/27/25 00:00 128/55 L 06/27/25 00:00 77 06/26/25 23:51 79 22 06/26/25 23:45 113/47 L 06/26/25 23:45 80 22 06/26/25 23:30 140/57 L 06/26/25 23:30 140/57 L 06/26/25 23:27 77 15 06/26/25 23:09 36.8 C 15 94 Room Air 06/26/25 23:06 68 22 06/26/25 23:00 130/59 L 06/26/25 22:57 70 21 06/26/25 22:45 101/55 L 06/26/25 22:39 70 20 06/26/25 22:30 120/54 L 06/26/25 22:22 36.8 C 15 94 Room Air 06/26/25 22:18 94 H 17 06/26/25 22:16 123/79 06/26/25 22:16 123/79 06/26/25 22:16 123/79 06/26/25 22:16 123/79 06/26/25 22:16 123/79 06/26/25 22:00 114/51 L 06/26/25 22:00 71 16 06/26/25 21:45 128/56 L 06/26/25 21:45 128/56 L 06/26/25 21:36 77 22 06/26/25 21:30 153/68 H 06/26/25 21:30 153/68 H 06/26/25 21:30 88 21 06/26/25 21:15 136/74 06/26/25 21:09 72 18 89 L 06/26/25 21:06 69 19 95 06/26/25 20:46 161/66 H 06/26/25 20:46 161/66 H 06/26/25 20:46 161/66 H 06/26/25 20:46 161/66 H 06/26/25 20:45 78 37 H 95 06/26/25 20:31 124/53 L 06/26/25 20:31 124/53 L 06/26/25 20:27 71 21 94 06/26/25 20:06 73 23 94 06/26/25 20:00 162/80 H 06/26/25 19:57 73 17 06/26/25 19:45 141/62 H 06/26/25 19:45 141/62 H 06/26/25 19:45 69 12 69 L 06/26/25 19:30 123/72 06/26/25 19:30 123/72 06/26/25 19:24 67 14 85 L 06/26/25 19:15 130/57 L 06/26/25 19:15 130/57 L 06/26/25 19:12 67 17 100 C[place] [address] SUB INP/OBS CARE 2/35MIN Patient Type Established History Detailed Exam Detailed Medical Decision Making Moderate Complexity Diagnoses Femoral artery stenosis, left I70.202 Acute blood loss anemia D62
[2025-06-27] MEDS: OMEGA-3 (PURIFIED FISH OIL) 1 GM CAP PO SCH (07:58)
[2025-06-27] MEDS: MULTIVITAMIN TAB PO SCH (07:58)
[2025-06-27] MEDS: TAMSULOSIN HCL 0.4 MG CAP PO SCH (07:59)
[2025-06-27] MEDS: ISOSORBIDE MONO EXTENDED REL 30 MG TABCR PO SCH (07:59)
[2025-06-27] MEDS: ASPIRIN 81 MG ECTAB PO SCH (07:59)
[2025-06-27] MEDS: TIMOLOL MALEATE 0.5% OP SOLN 5 ML BTL OPL SCH (08:00)
[2025-06-27] MEDS ORDERED: NON-FORMULARY MEDICATION (Coenzyme Q10 [Co Q-10] 100 mg Capsule) PO SCH (09:00)
--- NOTE | 2025-06-27 14:15 | Surgery Progress Note ---
Date of Service June 27, 2025 Assessment & Plan (1) Acute blood loss anemia: Plan: patient with low hgb post surgery from blood loss from surgery. Given one unit. No longer lightheaded. repeat h/h in am (2) Femoral artery stenosis, left: Plan: POD 1 from left femoral endarterectomy. Good distal flow. Will transfer to floor. Admission and Anticipated Discharge Date Admission Date: June 26, 2025 Subjective Patient without complaint. He did has lightheadedness this am getting out of bed. He had one unit of blood for a low hgb. Now with no further symptoms. No pain in left foot. Minimal incisional pain. Physical Exam Constitutional: WD/WN, vitals as above Respiratory: normal respiratory effort; no respiratory distress Cardiovascular: Rate/Rhythm: regular rate and regular rhythm Extremities: normal capillary refill good distal doppler pulses Skin: + incision (dressing intact) Neurologic: CN's II-XI intact bilaterally and moves all extremities Psychiatric: A+Ox3, euthymic affect Results & Data Vital Signs (Past 12 Hours) Vital Signs Temp Pulse Resp BP BP Pulse Ox O2 Del Method 06/27/25 13:01 134/56 L 06/27/25 13:00 36.7 C 06/27/25 12:21 67 19 06/27/25 11:09 66 93 06/27/25 10:09 61 20 93 Room Air 06/27/25 10:00 130/63 06/27/25 10:00 130/63 06/27/25 09:57 62 20 97 06/27/25 09:37 132/61 06/27/25 09:37 132/61 06/27/25 09:37 132/61 06/27/25 09:37 132/61 06/27/25 09:36 36.5 C 66 17 132/61 95 06/27/25 09:27 65 20 06/27/25 09:15 151/70 H 06/27/25 09:15 151/70 H 06/27/25 09:15 71 21 95 06/27/25 09:00 140/63 06/27/25 09:00 140/63 06/27/25 09:00 69 19 06/27/25 08:59 36.6 C 71 18 151/70 H 90 06/27/25 08:06 76 21 97 06/27/25 07:59 36.6 C 71 16 138/72 98 06/27/25 07:45 142/58 H Room Air 06/27/25 07:30 135/64 06/27/25 07:18 68 18 06/27/25 07:16 126/49 L 06/27/25 07:15 61 14 06/27/25 07:06 62 16 06/27/25 07:00 136/52 L 06/27/25 07:00 136/52 L 06/27/25 06:59 63 136/52 L 06/27/25 06:53 66 17 06/27/25 06:49 62 06/27/25 06:47 63 19 06/27/25 06:45 128/52 L 06/27/25 06:44 63 14 06/27/25 06:30 121/49 L 06/27/25 06:30 121/49 L 06/27/25 06:29 36.6 C 62 15 118/48 L 93 06/27/25 06:20 63 14 06/27/25 06:15 118/48 L 06/27/25 06:15 118/48 L 06/27/25 06:15 118/48 L 06/27/25 06:15 118/48 L 06/27/25 06:14 36.6 C 62 15 118/48 L 93 06/27/25 06:11 62 17 06/27/25 06:02 64 13 06/27/25 06:00 110/46 L 06/27/25 05:56 109/45 L 06/27/25 05:56 36.6 C 64 15 109/45 L 93 06/27/25 05:53 62 14 06/27/25 05:45 116/48 L 06/27/25 05:45 116/48 L 06/27/25 05:32 63 18 06/27/25 05:30 114/53 L 06/27/25 05:30 114/53 L 06/27/25 05:20 64 16 06/27/25 05:16 105/47 L 06/27/25 05:16 105/47 L 06/27/25 05:11 65 16 06/27/25 05:08 70 23 06/27/25 05:05 90/47 L 06/27/25 04:41 81 25 H 06/27/25 04:17 67 20 06/27/25 04:00 124/51 L 06/27/25 04:00 36.9 C 15 93 Room Air 06/27/25 03:53 63 16 06/27/25 03:11 74 23 06/27/25 03:01 155/58 H 06/27/25 03:01 155/58 H 06/27/25 02:59 90 15 06/27/25 02:09 70 19
[2025-06-27] MEDS: IBUPROFEN 600 MG TAB PO PRN (20:25)
[2025-06-28 07:35] VITALS: RESP 18; TEMP 98.1
[2025-06-28] MEDS: DOCUSATE SODIUM 100 MG CAP PO SCH (08:48)
[2025-06-28 09:14] VITALS: PULSE 82; O2SAT 98
[2025-06-28 13:12] VITALS: BP 105/54
--- NOTE | 2025-06-28 13:24 | Surgery Progress Note ---
Date of Service June 28, 2025 Assessment & Plan (1) Acute blood loss anemia: Plan: Hgb stable will send home on iron (2) Femoral artery stenosis, left: Plan: Uneventful post op course Will D\C today Admission and Anticipated Discharge Date Admission Date: June 26, 2025 Subjective Patient without complaint. Denies foot pain Physical Exam Physical Exam: Constitutional: In general patient is a healthy-appearing well-nourished well- developed elderly male in no distress. He is alert and oriented without a focal deficits. His carotids do not demonstrate a bruit. His heart is regular, his lungs are decreased significantly but clear. His radial pulse on the right is +1, his radial pulse on the left is +3. His left femoral pulse is nonpalpable. His left DP and PT is nonpalpable. His right femoral pulse is +2. Right DP and PT is +1. Brisk capillary refill and no sign of ischemia Constitutional: WD/WN, vitals as above Respiratory: normal respiratory effort; no respiratory distress Cardiovascular: Rate/Rhythm: regular rate and regular rhythm Extremities: normal capillary refill Skin: + incision (dressing intact) Neurologic: CN's II-XI intact bilaterally and moves all extremities Psychiatric: A+Ox3, euthymic affect Results & Data Vital Signs (Past 12 Hours) Vital Signs Temp Pulse Resp BP Pulse Ox O2 Del Method 06/28/25 13:12 105/54 L 06/28/25 11:59 96/58 L 06/28/25 09:11 82 98 Room Air 06/28/25 07:00 36.7 C 57 L 18 102/60 96 Room Air
[2025-06-28] MEDS ORDERED: FERROUS SULFATE 325 MG TAB PO SCH (17:00)
== END 2025-06-28 14:36 | disposition home or self-care (01) | DRG 253 ==
LOC: ASU 05:40 → 1E 07:34 → 3W 06-27 16:00